=== PATIENT | male | born 1990 | race Caucasian/White ===

== ENCOUNTER 2016-08-13 06:41 | Outpatient (RCR) | payer BC ==
[~2016-08-13] VITALS: Ht 170.2 cm; Wt 59.0 kg
[2016-08-13] MEDS ORDERED: Glycopyrrolate 0.2mg/ml 1ml Vial ONE ×3 (06:42)
[2016-08-13] MEDS ORDERED: LORazepam Inj 2mg/ml 1ml ONE ×2 (06:42)
[2016-08-13] MEDS ORDERED: Flumazenil 0.1mg/ml 5ml Inj IV ONE ×3 (06:42)
[2016-08-13] MEDS ORDERED: Succinylcholine 20mg/ml 10ml vial ONE ×3 (06:42)
[2016-08-13] MEDS ORDERED: NS 550ML IV ONE ×3 (06:42)
[2016-08-13] MEDS ORDERED: Methohexital Sodium Syr 100mg/10ml IVP ONE ×3 (06:42)
[2016-08-20] MEDS ORDERED: LORazepam Inj 2mg/ml 1ml ONE (08:00)
[2016-08-20] MEDS ORDERED: Succinylcholine 20mg/ml 10ml vial ONE (08:00)
[2016-08-20] MEDS ORDERED: Glycopyrrolate 0.2mg/ml 1ml Vial ONE (08:00)
[2016-08-20] MEDS ORDERED: Flumazenil 0.1mg/ml 5ml Inj IV ONE (08:00)
[2016-08-20] MEDS ORDERED: Methohexital Sodium Syr 100mg/10ml IVP ONE (08:00)
[2016-08-20] MEDS ORDERED: Atropine Sulfate 0.4mg/ml inj IVP PRN (08:00)
[2016-08-27] MEDS ORDERED: LORazepam Inj 2mg/ml 1ml IV ONE (07:45)
[2016-08-29] MEDS ORDERED: LORazepam Inj 2mg/ml 1ml IV ONE (08:00)
[2016-09-03] MEDS ORDERED: LORazepam Inj 2mg/ml 1ml IV ONE (08:36)
[2016-09-05] MEDS ORDERED: LORazepam Inj 2mg/ml 1ml IV ONE (08:36)
== END 2016-09-09 | disposition home or self-care (01) ==
LOC: ECT 06:41
DX: F84.0 Autistic disorder (principal); Z88.2 Allergy status to sulfonamides
CPT/HCPCS: 90870; J0330; J7040

== ENCOUNTER 2016-09-10 05:06 | Outpatient (RCR) | payer BC ==
[~2016-09-10] VITALS: Ht 170.2 cm; Wt 59.0 kg
[2016-09-10] MEDS ORDERED: Glycopyrrolate 0.2mg/ml 1ml Vial ONE (05:07)
[2016-09-10] MEDS ORDERED: Methohexital Sodium Syr 100mg/10ml IVP ONE (05:07)
[2016-09-10] MEDS ORDERED: Succinylcholine 20mg/ml 10ml vial ONE (05:07)
[2016-09-10] MEDS ORDERED: Flumazenil 0.1mg/ml 5ml Inj IV ONE (05:07)
[2016-09-10] MEDS ORDERED: NS 550ML IV ONE (05:07)
[2016-09-10] MEDS ORDERED: LORazepam Inj 2mg/ml 1ml ONE (05:07)
[2016-09-10] MEDS ORDERED: Atropine Sulfate 0.4mg/ml inj IVP PRN (08:07)
[2016-09-17] MEDS ORDERED: LORazepam Inj 2mg/ml 1ml IV ONE (07:26)
[2016-09-24] MEDS ORDERED: Glycopyrrolate 0.2mg/ml 1ml Vial ONE (12:30)
[2016-09-24] MEDS ORDERED: Flumazenil 0.1mg/ml 5ml Inj IV ONE (12:30)
[2016-09-24] MEDS ORDERED: Succinylcholine 20mg/ml 10ml vial ONE (12:30)
[2016-09-24] MEDS ORDERED: Methohexital Sodium Syr 100mg/10ml IVP ONE (12:30)
[2016-09-24] MEDS ORDERED: NS 550ML IV ONE (12:30)
[2016-09-24] MEDS ORDERED: Atropine Sulfate 0.4mg/ml inj IVP PRN (17:45)
[2016-09-24] MEDS ORDERED: LORazepam Inj 2mg/ml 1ml IV ONE (17:45)
[2016-10-01] MEDS ORDERED: Flumazenil 0.1mg/ml 5ml Inj IV ONE (05:07)
[2016-10-01] MEDS ORDERED: LORazepam Inj 2mg/ml 1ml ONE (05:07)
[2016-10-01] MEDS ORDERED: Glycopyrrolate 0.2mg/ml 1ml Vial ONE (05:07)
[2016-10-01] MEDS ORDERED: Succinylcholine 20mg/ml 10ml vial ONE (05:07)
[2016-10-01] MEDS ORDERED: Methohexital Sodium Syr 100mg/10ml IVP ONE (05:07)
[2016-10-01] MEDS ORDERED: NS 550ML IV ONE (05:07)
[2016-10-01] MEDS ORDERED: LORazepam Inj 2mg/ml 1ml IV ONE (16:30)
== END 2016-10-07 | disposition home or self-care (01) ==
LOC: ECT 05:06
DX: F06.1 Catatonic disorder due to known physiological condition (principal); F84.0 Autistic disorder; Z88.2 Allergy status to sulfonamides
CPT/HCPCS: 90870; J0330; J7040

== ENCOUNTER 2016-10-08 07:36 | Outpatient (RCR) | payer BC ==
[~2016-10-08] VITALS: Ht 170.2 cm; Wt 59.0 kg
[2016-10-08] MEDS ORDERED: Flumazenil 0.1mg/ml 5ml Inj IV ONE (07:37)
[2016-10-08] MEDS ORDERED: NS 550ML IV ONE (07:37)
[2016-10-08] MEDS ORDERED: Succinylcholine 20mg/ml 10ml vial ONE (07:37)
[2016-10-08] MEDS ORDERED: LORazepam Inj 2mg/ml 1ml ONE (07:37)
[2016-10-08] MEDS ORDERED: Methohexital Sodium Syr 100mg/10ml IVP ONE (07:37)
[2016-10-08] MEDS ORDERED: Glycopyrrolate 0.2mg/ml 1ml Vial ONE (07:37)
[2016-10-08] MEDS ORDERED: LORazepam Inj 2mg/ml 1ml IV ONE (08:05)
[2016-10-15] MEDS ORDERED: Methohexital Sodium Syr 100mg/10ml IVP ONE (07:37)
[2016-10-15] MEDS ORDERED: Flumazenil 0.1mg/ml 5ml Inj IV ONE (07:37)
[2016-10-15] MEDS ORDERED: NS 550ML IV ONE (07:37)
[2016-10-15] MEDS ORDERED: LORazepam Inj 2mg/ml 1ml ONE (07:37)
[2016-10-15] MEDS ORDERED: Succinylcholine 20mg/ml 10ml vial ONE (07:37)
[2016-10-15] MEDS ORDERED: Glycopyrrolate 0.2mg/ml 1ml Vial ONE (07:37)
[2016-10-15] MEDS ORDERED: LORazepam Inj 2mg/ml 1ml IV ONE (12:30)
[2016-10-15] MEDS ORDERED: Atropine Sulfate 0.4mg/ml inj IVP PRN (17:45)
[2016-10-22] MEDS ORDERED: Methohexital Sodium Syr 100mg/10ml IVP ONE (08:00)
[2016-10-22] MEDS ORDERED: NS 550ML IV ONE (08:00)
[2016-10-22] MEDS ORDERED: LORazepam Inj 2mg/ml 1ml ONE (08:00)
[2016-10-22] MEDS ORDERED: Glycopyrrolate 0.2mg/ml 1ml Vial ONE (08:00)
[2016-10-22] MEDS ORDERED: Flumazenil 0.1mg/ml 5ml Inj IV ONE (08:00)
[2016-10-22] MEDS ORDERED: Succinylcholine 20mg/ml 10ml vial ONE (08:00)
[2016-10-29] MEDS ORDERED: NS 550ML IV ONE (08:00)
[2016-10-29] MEDS ORDERED: Methohexital Sodium Syr 100mg/10ml IVP ONE (08:00)
[2016-10-29] MEDS ORDERED: Flumazenil 0.1mg/ml 5ml Inj IV ONE (08:00)
[2016-10-29] MEDS ORDERED: Succinylcholine 20mg/ml 10ml vial ONE (08:00)
[2016-10-29] MEDS ORDERED: LORazepam Inj 2mg/ml 1ml ONE (08:00)
[2016-10-29] MEDS ORDERED: Glycopyrrolate 0.2mg/ml 1ml Vial ONE (08:00)
[2016-10-29] MEDS ORDERED: Atropine Sulfate 0.4mg/ml inj IVP PRN (08:13)
[2016-10-29] MEDS ORDERED: LORazepam Inj 2mg/ml 1ml IV ONE (16:00)
[2016-11-05] MEDS ORDERED: LORazepam Inj 2mg/ml 1ml ONE (07:00)
[2016-11-05] MEDS ORDERED: Methohexital Sodium Syr 100mg/10ml IVP ONE (07:00)
[2016-11-05] MEDS ORDERED: Glycopyrrolate 0.2mg/ml 1ml Vial ONE (07:00)
[2016-11-05] MEDS ORDERED: NS 550ML IV ONE (07:00)
[2016-11-05] MEDS ORDERED: Succinylcholine 20mg/ml 10ml vial ONE (07:00)
[2016-11-05] MEDS ORDERED: Flumazenil 0.1mg/ml 5ml Inj IV ONE (07:00)
[2016-11-05] MEDS ORDERED: LORazepam Inj 2mg/ml 1ml IV ONE (07:48)
== END 2016-11-07 | disposition home or self-care (01) ==
LOC: ECT 07:36
DX: F06.1 Catatonic disorder due to known physiological condition (principal); F84.0 Autistic disorder; Z88.2 Allergy status to sulfonamides; Z88.6 Allergy status to analgesic agent
CPT/HCPCS: 90870; J0330; J7040

== ENCOUNTER 2016-11-10 05:27 | Outpatient (RCR) | payer BC ==
[~2016-11-10] VITALS: Ht 170.2 cm; Wt 59.0 kg
[2016-11-10] MEDS ORDERED: Methohexital Sodium Syr 100mg/10ml IVP ONE (05:28)
[2016-11-10] MEDS ORDERED: Flumazenil 0.1mg/ml 5ml Inj IV ONE (05:28)
[2016-11-10] MEDS ORDERED: NS 550ML IV ONE (05:28)
[2016-11-10] MEDS ORDERED: Succinylcholine 20mg/ml 10ml vial ONE (05:28)
[2016-11-10] MEDS ORDERED: LORazepam Inj 2mg/ml 1ml ONE (05:28)
[2016-11-10] MEDS ORDERED: Glycopyrrolate 0.2mg/ml 1ml Vial ONE (05:28)
[2016-11-10] MEDS ORDERED: LORazepam Inj 2mg/ml 1ml IV ONE (12:30)
[2016-11-12] MEDS ORDERED: Glycopyrrolate 0.2mg/ml 1ml Vial ONE (12:30)
[2016-11-12] MEDS ORDERED: Methohexital Sodium Syr 100mg/10ml IVP ONE (12:30)
[2016-11-12] MEDS ORDERED: NS 550ML IV ONE (12:30)
[2016-11-12] MEDS ORDERED: LORazepam Inj 2mg/ml 1ml IV ONE (12:30)
[2016-11-12] MEDS ORDERED: LORazepam Inj 2mg/ml 1ml ONE (12:30)
[2016-11-12] MEDS ORDERED: Succinylcholine 20mg/ml 10ml vial ONE (12:30)
[2016-11-12] MEDS ORDERED: Flumazenil 0.1mg/ml 5ml Inj IV ONE (12:30)
[2016-11-19] MEDS ORDERED: NS 550ML IV ONE (17:28)
[2016-11-19] MEDS ORDERED: Flumazenil 0.1mg/ml 5ml Inj IV ONE (17:28)
[2016-11-19] MEDS ORDERED: Succinylcholine 20mg/ml 10ml vial ONE (17:28)
[2016-11-19] MEDS ORDERED: Methohexital Sodium Syr 100mg/10ml IVP ONE (17:28)
[2016-11-19] MEDS ORDERED: LORazepam Inj 2mg/ml 1ml ONE (17:28)
[2016-11-19] MEDS ORDERED: Glycopyrrolate 0.2mg/ml 1ml Vial ONE (17:28)
[2016-11-19] MEDS ORDERED: LORazepam Inj 2mg/ml 1ml IV ONE (17:45)
[2016-11-19] MEDS ORDERED: Atropine Sulfate 0.4mg/ml inj IVP PRN (17:45)
[2016-11-26] MEDS ORDERED: Flumazenil 0.1mg/ml 5ml Inj IV ONE (05:28)
[2016-11-26] MEDS ORDERED: Methohexital Sodium Syr 100mg/10ml IVP ONE (05:28)
[2016-11-26] MEDS ORDERED: NS 550ML IV ONE (05:28)
[2016-11-26] MEDS ORDERED: LORazepam Inj 2mg/ml 1ml ONE (05:28)
[2016-11-26] MEDS ORDERED: Succinylcholine 20mg/ml 10ml vial ONE (05:28)
[2016-11-26] MEDS ORDERED: Glycopyrrolate 0.2mg/ml 1ml Vial ONE (05:28)
[2016-11-26] MEDS ORDERED: LORazepam Inj 2mg/ml 1ml IV ONE (08:20)
[2016-12-03] MEDS ORDERED: LORazepam Inj 2mg/ml 1ml IV ONE (07:48)
[2016-12-03] MEDS ORDERED: Atropine Sulfate 0.4mg/ml inj IVP PRN (07:48)
[2016-12-03] MEDS ORDERED: Methohexital Sodium Syr 100mg/10ml IVP ONE (08:00)
[2016-12-03] MEDS ORDERED: Flumazenil 0.1mg/ml 5ml Inj IV ONE (08:00)
[2016-12-03] MEDS ORDERED: Succinylcholine 20mg/ml 10ml vial ONE (08:00)
[2016-12-03] MEDS ORDERED: Glycopyrrolate 0.2mg/ml 1ml Vial ONE (08:00)
[2016-12-03] MEDS ORDERED: LORazepam Inj 2mg/ml 1ml ONE (08:00)
== END 2016-12-07 | disposition home or self-care (01) ==
LOC: ECT 05:27
DX: F06.1 Catatonic disorder due to known physiological condition (principal); F84.0 Autistic disorder
CPT/HCPCS: 90870; J0330; J7040

== ENCOUNTER 2016-12-10 05:08 | Outpatient (RCR) | payer BC ==
[~2016-12-10] VITALS: Ht 170.2 cm; Wt 59.0 kg
[2016-12-10] MEDS ORDERED: NS 550ML IV ONE (05:09)
[2016-12-10] MEDS ORDERED: LORazepam Inj 2mg/ml 1ml ONE ×2 (05:09→07:00)
[2016-12-10] MEDS ORDERED: Succinylcholine 20mg/ml 10ml vial ONE ×2 (05:09→07:00)
[2016-12-10] MEDS ORDERED: Methohexital Sodium Syr 100mg/10ml IVP ONE ×2 (05:09→07:00)
[2016-12-10] MEDS ORDERED: Glycopyrrolate 0.2mg/ml 1ml Vial ONE ×2 (05:09→07:00)
[2016-12-10] MEDS ORDERED: Flumazenil 0.1mg/ml 5ml Inj IV ONE ×2 (05:09→07:00)
[2016-12-10] MEDS ORDERED: LORazepam Inj 2mg/ml 1ml IV ONE (08:19)
[2016-12-17] MEDS ORDERED: LORazepam Inj 2mg/ml 1ml ONE (06:00)
[2016-12-17] MEDS ORDERED: Succinylcholine 20mg/ml 10ml vial ONE (06:00)
[2016-12-17] MEDS ORDERED: Glycopyrrolate 0.2mg/ml 1ml Vial ONE (06:00)
[2016-12-17] MEDS ORDERED: Methohexital Sodium Syr 100mg/10ml IVP ONE (06:00)
[2016-12-17] MEDS ORDERED: Flumazenil 0.1mg/ml 5ml Inj IV ONE (06:00)
[2016-12-17] MEDS ORDERED: LORazepam Inj 2mg/ml 1ml IV ONE (08:38)
[2016-12-17] MEDS ORDERED: Atropine Sulfate 0.4mg/ml inj IVP PRN (08:38)
[2016-12-24] MEDS ORDERED: Methohexital Sodium Syr 100mg/10ml IVP ONE (07:00)
[2016-12-24] MEDS ORDERED: Glycopyrrolate 0.2mg/ml 1ml Vial ONE (07:00)
[2016-12-24] MEDS ORDERED: Succinylcholine 20mg/ml 10ml vial ONE (07:00)
[2016-12-24] MEDS ORDERED: Flumazenil 0.1mg/ml 5ml Inj IV ONE (07:00)
[2016-12-24] MEDS ORDERED: LORazepam Inj 2mg/ml 1ml ONE (07:00)
[2016-12-24] MEDS ORDERED: LORazepam Inj 2mg/ml 1ml IV ONE (07:49)
[2016-12-31] MEDS ORDERED: Succinylcholine 20mg/ml 10ml vial ONE (07:00)
[2016-12-31] MEDS ORDERED: Glycopyrrolate 0.2mg/ml 1ml Vial ONE (07:00)
[2016-12-31] MEDS ORDERED: Flumazenil 0.1mg/ml 5ml Inj IV ONE (07:00)
[2016-12-31] MEDS ORDERED: LORazepam Inj 2mg/ml 1ml ONE (07:00)
[2016-12-31] MEDS ORDERED: Methohexital Sodium Syr 100mg/10ml IVP ONE (07:00)
[2016-12-31] MEDS ORDERED: LORazepam Inj 2mg/ml 1ml IV ONE (08:08)
== END 2017-01-07 | disposition home or self-care (01) ==
LOC: ECT 05:08
DX: F06.1 Catatonic disorder due to known physiological condition (principal); F84.0 Autistic disorder
CPT/HCPCS: 90870; J0330; J7040

== ENCOUNTER 2017-01-14 08:36 | Outpatient (RCR) | payer BC ==
[~2017-01-14] VITALS: Ht 170.2 cm; Wt 59.0 kg
[2017-01-14] MEDS ORDERED: Flumazenil 0.1mg/ml 5ml Inj IV ONE (08:37)
[2017-01-14] MEDS ORDERED: Glycopyrrolate 0.2mg/ml 1ml Vial ONE (08:37)
[2017-01-14] MEDS ORDERED: Succinylcholine 20mg/ml 10ml vial ONE (08:37)
[2017-01-14] MEDS ORDERED: NS 550ML IV ONE (08:37)
[2017-01-14] MEDS ORDERED: Methohexital Sodium Syr 100mg/10ml IVP ONE (08:37)
[2017-01-14] MEDS ORDERED: LORazepam Inj 2mg/ml 1ml IV ONE (08:40)
[2017-01-14] MEDS ORDERED: Atropine Sulfate 0.4mg/ml inj IVP PRN (08:48)
[2017-01-21] MEDS ORDERED: Glycopyrrolate 0.2mg/ml 1ml Vial ONE (07:00)
[2017-01-21] MEDS ORDERED: Flumazenil 0.1mg/ml 5ml Inj IV ONE (07:00)
[2017-01-21] MEDS ORDERED: Succinylcholine 20mg/ml 10ml vial ONE (07:00)
[2017-01-21] MEDS ORDERED: LORazepam Inj 2mg/ml 1ml ONE (07:00)
[2017-01-21] MEDS ORDERED: Methohexital Sodium Syr 100mg/10ml IVP ONE (07:00)
[2017-01-21] MEDS ORDERED: NS 550ML IV ONE (07:00)
[2017-01-21] MEDS ORDERED: LORazepam Inj 2mg/ml 1ml IV ONE (22:30)
[2017-01-28] MEDS ORDERED: NS 550ML IV ONE (08:00)
[2017-01-28] MEDS ORDERED: Succinylcholine 20mg/ml 10ml vial ONE (08:00)
[2017-01-28] MEDS ORDERED: LORazepam Inj 2mg/ml 1ml ONE (08:00)
[2017-01-28] MEDS ORDERED: Flumazenil 0.1mg/ml 5ml Inj IV ONE (08:00)
[2017-01-28] MEDS ORDERED: Methohexital Sodium Syr 100mg/10ml IVP ONE (08:00)
[2017-01-28] MEDS ORDERED: Glycopyrrolate 0.2mg/ml 1ml Vial ONE (08:00)
[2017-02-04] MEDS ORDERED: NS 550ML IV ONE (12:30)
[2017-02-04] MEDS ORDERED: LORazepam Inj 2mg/ml 1ml ONE (12:30)
[2017-02-04] MEDS ORDERED: Glycopyrrolate 0.2mg/ml 1ml Vial ONE (12:30)
[2017-02-04] MEDS ORDERED: Succinylcholine 20mg/ml 10ml vial ONE (12:30)
[2017-02-04] MEDS ORDERED: Flumazenil 0.1mg/ml 5ml Inj IV ONE (12:30)
[2017-02-04] MEDS ORDERED: Methohexital Sodium Syr 100mg/10ml IVP ONE (12:30)
== END 2017-02-06 | disposition home or self-care (01) ==
LOC: ECT 08:36
DX: F06.1 Catatonic disorder due to known physiological condition (principal); F84.0 Autistic disorder
CPT/HCPCS: 90870; J0330; J7040

== ENCOUNTER 2017-02-11 06:17 | Outpatient (RCR) | payer BC ==
[~2017-02-11] VITALS: Ht 170.2 cm; Wt 59.0 kg
[2017-02-11] MEDS ORDERED: Glycopyrrolate 0.2mg/ml 1ml Vial ONE ×2 (06:18)
[2017-02-11] MEDS ORDERED: Methohexital Sodium Syr 100mg/10ml IVP ONE ×2 (06:18)
[2017-02-11] MEDS ORDERED: Succinylcholine 20mg/ml 10ml vial ONE ×2 (06:18)
[2017-02-11] MEDS ORDERED: NS 550ML IV ONE ×2 (06:18)
[2017-02-11] MEDS ORDERED: Flumazenil 0.1mg/ml 5ml Inj IV ONE ×2 (06:18)
[2017-02-11] MEDS ORDERED: LORazepam Inj 2mg/ml 1ml ONE ×2 (06:18)
[2017-02-11] MEDS ORDERED: LORazepam Inj 2mg/ml 1ml IV ONE (08:17)
[2017-02-18] MEDS ORDERED: Methohexital Sodium Syr 100mg/10ml IVP ONE (07:00)
[2017-02-18] MEDS ORDERED: Glycopyrrolate 0.2mg/ml 1ml Vial ONE (07:00)
[2017-02-18] MEDS ORDERED: Flumazenil 0.1mg/ml 5ml Inj IV ONE (07:00)
[2017-02-18] MEDS ORDERED: LORazepam Inj 2mg/ml 1ml ONE (07:00)
[2017-02-18] MEDS ORDERED: Succinylcholine 20mg/ml 10ml vial ONE (07:00)
[2017-02-25] MEDS ORDERED: Succinylcholine 20mg/ml 10ml vial ONE (07:00)
[2017-02-25] MEDS ORDERED: Glycopyrrolate 0.2mg/ml 1ml Vial ONE (07:00)
[2017-02-25] MEDS ORDERED: LORazepam Inj 2mg/ml 1ml ONE (07:00)
[2017-02-25] MEDS ORDERED: Flumazenil 0.1mg/ml 5ml Inj IV ONE (07:00)
[2017-02-25] MEDS ORDERED: Methohexital Sodium Syr 100mg/10ml IVP ONE (07:00)
[2017-02-25] MEDS ORDERED: LORazepam Inj 2mg/ml 1ml IV ONE (07:32)
== END 2017-03-09 | disposition home or self-care (01) ==
LOC: ECT 06:17
DX: F06.1 Catatonic disorder due to known physiological condition (principal); F84.0 Autistic disorder
CPT/HCPCS: 90870; J0330; J7040

== ENCOUNTER 2017-03-11 05:08 | Outpatient (RCR) | payer BC ==
[~2017-03-11] VITALS: Ht 170.2 cm; Wt 59.0 kg
[2017-03-11] MEDS ORDERED: Methohexital Sodium Syr 100mg/10ml IVP ONE (05:09)
[2017-03-11] MEDS ORDERED: Flumazenil 0.1mg/ml 5ml Inj IV ONE (05:09)
[2017-03-11] MEDS ORDERED: Glycopyrrolate 0.2mg/ml 1ml Vial ONE (05:09)
[2017-03-11] MEDS ORDERED: NS 550ML IV ONE (05:09)
[2017-03-11] MEDS ORDERED: LORazepam Inj 2mg/ml 1ml ONE (05:09)
[2017-03-11] MEDS ORDERED: Succinylcholine 20mg/ml 10ml vial ONE (05:09)
[2017-03-11] MEDS ORDERED: LORazepam Inj 2mg/ml 1ml IV ONE (08:09)
[2017-03-18] MEDS ORDERED: NS 550ML IV ONE (07:00)
[2017-03-18] MEDS ORDERED: LORazepam Inj 2mg/ml 1ml ONE (07:00)
[2017-03-18] MEDS ORDERED: Methohexital Sodium Syr 100mg/10ml IVP ONE (07:00)
[2017-03-18] MEDS ORDERED: Flumazenil 0.1mg/ml 5ml Inj IV ONE (07:00)
[2017-03-18] MEDS ORDERED: Succinylcholine 20mg/ml 10ml vial ONE (07:00)
[2017-03-18] MEDS ORDERED: Glycopyrrolate 0.2mg/ml 1ml Vial ONE (07:00)
[2017-03-18] MEDS ORDERED: LORazepam Inj 2mg/ml 1ml IV ONE (08:05)
[2017-03-25] MEDS ORDERED: Flumazenil 0.1mg/ml 5ml Inj IV ONE (07:00)
[2017-03-25] MEDS ORDERED: Succinylcholine 20mg/ml 10ml vial ONE (07:00)
[2017-03-25] MEDS ORDERED: Methohexital Sodium Syr 100mg/10ml IVP ONE (07:00)
[2017-03-25] MEDS ORDERED: Glycopyrrolate 0.2mg/ml 1ml Vial ONE (07:00)
[2017-03-25] MEDS ORDERED: LORazepam Inj 2mg/ml 1ml ONE (07:00)
[2017-03-25] MEDS ORDERED: LORazepam Inj 2mg/ml 1ml IV ONE (07:46)
[2017-04-01] MEDS ORDERED: LORazepam Inj 2mg/ml 1ml ONE (07:00)
[2017-04-01] MEDS ORDERED: Succinylcholine 20mg/ml 10ml vial ONE (07:00)
[2017-04-01] MEDS ORDERED: Glycopyrrolate 0.2mg/ml 1ml Vial ONE (07:00)
[2017-04-01] MEDS ORDERED: NS 550ML IV ONE (07:00)
[2017-04-01] MEDS ORDERED: Flumazenil 0.1mg/ml 5ml Inj IV ONE (07:00)
[2017-04-01] MEDS ORDERED: Methohexital Sodium Syr 100mg/10ml IVP ONE (07:00)
[2017-04-01] MEDS ORDERED: LORazepam Inj 2mg/ml 1ml IV ONE (07:56)
[2017-04-08] MEDS ORDERED: LORazepam Inj 2mg/ml 1ml ONE (07:00)
[2017-04-08] MEDS ORDERED: Methohexital Sodium Syr 100mg/10ml IVP ONE (07:00)
[2017-04-08] MEDS ORDERED: Flumazenil 0.1mg/ml 5ml Inj IV ONE (07:00)
[2017-04-08] MEDS ORDERED: Succinylcholine 20mg/ml 10ml vial ONE (07:00)
[2017-04-08] MEDS ORDERED: Glycopyrrolate 0.2mg/ml 1ml Vial ONE (07:00)
[2017-04-08] MEDS ORDERED: Atropine Sulfate 0.4mg/ml inj IVP PRN (08:03)
== END 2017-04-09 | disposition home or self-care (01) ==
LOC: ECT 05:08
DX: F06.1 Catatonic disorder due to known physiological condition (principal); F84.0 Autistic disorder
CPT/HCPCS: 90870; J0330; J7040

== ENCOUNTER 2017-04-15 06:12 | Outpatient (RCR) | payer BC ==
[~2017-04-15] VITALS: Ht 170.2 cm; Wt 59.0 kg
[2017-04-15] MEDS ORDERED: Glycopyrrolate 0.2mg/ml 1ml Vial ONE (06:13)
[2017-04-15] MEDS ORDERED: NS 500ML IV ONE (06:13)
[2017-04-15] MEDS ORDERED: Succinylcholine 20mg/ml 10ml vial ONE (06:13)
[2017-04-15] MEDS ORDERED: Flumazenil 0.1mg/ml 5ml Inj IV ONE (06:13)
[2017-04-15] MEDS ORDERED: Methohexital Sodium Syr 100mg/10ml IVP ONE (06:13)
[2017-04-15] MEDS ORDERED: LORazepam Inj 2mg/ml 1ml ONE (06:13)
[2017-04-15] MEDS ORDERED: Sodium Chloride 500ML 500 ML IV ONE (17:00)
[2017-04-22] MEDS ORDERED: Sodium Chloride 500ML 500 ML IV ONE (08:02)
[2017-04-22] MEDS ORDERED: LORazepam Inj 2mg/ml 1ml IV ONE (08:02)
[2017-04-23] MEDS ORDERED: LORazepam Inj 2mg/ml 1ml ONE (07:00)
[2017-04-23] MEDS ORDERED: Succinylcholine 20mg/ml 10ml vial ONE (07:00)
[2017-04-23] MEDS ORDERED: Glycopyrrolate 0.2mg/ml 1ml Vial ONE (07:00)
[2017-04-23] MEDS ORDERED: Methohexital Sodium Syr 100mg/10ml IVP ONE (07:00)
[2017-04-23] MEDS ORDERED: Flumazenil 0.1mg/ml 5ml Inj IV ONE (07:00)
[2017-04-29] MEDS ORDERED: Flumazenil 0.1mg/ml 5ml Inj IV ONE (07:00)
[2017-04-29] MEDS ORDERED: Succinylcholine 20mg/ml 10ml vial ONE (07:00)
[2017-04-29] MEDS ORDERED: LORazepam Inj 2mg/ml 1ml ONE (07:00)
[2017-04-29] MEDS ORDERED: Methohexital Sodium Syr 100mg/10ml IVP ONE (07:00)
[2017-04-29] MEDS ORDERED: Glycopyrrolate 0.2mg/ml 1ml Vial ONE (07:00)
[2017-04-29] MEDS ORDERED: LORazepam Inj 2mg/ml 1ml IV ONE (07:34)
[2017-04-29] MEDS ORDERED: Sodium Chloride 500ML 500 ML IV ONE (07:34)
[2017-05-06] MEDS ORDERED: Succinylcholine 20mg/ml 10ml vial ONE (07:00)
[2017-05-06] MEDS ORDERED: LORazepam Inj 2mg/ml 1ml ONE (07:00)
[2017-05-06] MEDS ORDERED: Glycopyrrolate 0.2mg/ml 1ml Vial ONE (07:00)
[2017-05-06] MEDS ORDERED: Methohexital Sodium Syr 100mg/10ml IVP ONE (07:00)
[2017-05-06] MEDS ORDERED: Flumazenil 0.1mg/ml 5ml Inj IV ONE (07:00)
[2017-05-06] MEDS ORDERED: Sodium Chloride 500ML 500 ML IV ONE (08:02)
== END 2017-05-09 | disposition home or self-care (01) ==
LOC: ECT 06:12
DX: F06.1 Catatonic disorder due to known physiological condition (principal); F84.0 Autistic disorder
CPT/HCPCS: 90870; J0330; J7040

== ENCOUNTER 2017-05-13 05:06 | Outpatient (RCR) | payer BC ==
[~2017-05-13] VITALS: Ht 170.2 cm; Wt 59.0 kg
[2017-05-13] MEDS ORDERED: Glycopyrrolate 0.2mg/ml 1ml Vial ONE (05:07)
[2017-05-13] MEDS ORDERED: LORazepam Inj 2mg/ml 1ml ONE (05:07)
[2017-05-13] MEDS ORDERED: Succinylcholine 20mg/ml 10ml vial ONE (05:07)
[2017-05-13] MEDS ORDERED: Methohexital Sodium Syr 100mg/10ml IVP ONE (05:07)
[2017-05-13] MEDS ORDERED: Flumazenil 0.1mg/ml 5ml Inj IV ONE (05:07)
[2017-05-13] MEDS ORDERED: Atropine Sulfate 0.4mg/ml inj IVP PRN (07:53)
[2017-05-13] MEDS ORDERED: LORazepam Inj 2mg/ml 1ml IV ONE (07:53)
[2017-05-13] MEDS ORDERED: Sodium Chloride 500ML 500 ML IV ONE (07:53)
[2017-05-20] MEDS ORDERED: Glycopyrrolate 0.2mg/ml 1ml Vial ONE (08:00)
[2017-05-20] MEDS ORDERED: Succinylcholine 20mg/ml 10ml vial ONE (08:00)
[2017-05-20] MEDS ORDERED: Flumazenil 0.1mg/ml 5ml Inj IV ONE (08:00)
[2017-05-20] MEDS ORDERED: LORazepam Inj 2mg/ml 1ml ONE (08:00)
[2017-05-20] MEDS ORDERED: Methohexital Sodium Syr 100mg/10ml IVP ONE (08:00)
[2017-05-20] MEDS ORDERED: Sodium Chloride 500ML 500 ML IV ONE (08:08)
[2017-05-27 07:42] VITALS: BP 156/97
[2017-05-27] MEDS ORDERED: Sodium Chloride 500ML 500 ML IV ONE (07:53)
[2017-05-27 08:00] VITALS: BP 140/77
[2017-05-27] MEDS ORDERED: Glycopyrrolate 0.2mg/ml 1ml Vial ONE (08:00)
[2017-05-27] MEDS ORDERED: Flumazenil 0.1mg/ml 5ml Inj IV ONE (08:00)
[2017-05-27] MEDS ORDERED: Succinylcholine 20mg/ml 10ml vial ONE (08:00)
[2017-05-27] MEDS ORDERED: LORazepam Inj 2mg/ml 1ml ONE (08:00)
[2017-05-27] MEDS ORDERED: Methohexital Sodium Syr 100mg/10ml IVP ONE (08:00)
[2017-05-27 08:05] VITALS: BP 130/72
[2017-05-27 08:10] VITALS: BP 139/74
[2017-05-27 08:15] VITALS: BP 137/84
[2017-06-03] MEDS ORDERED: Succinylcholine 20mg/ml 10ml vial ONE (07:00)
[2017-06-03] MEDS ORDERED: Methohexital Sodium Syr 100mg/10ml IVP ONE (07:00)
[2017-06-03] MEDS ORDERED: LORazepam Inj 2mg/ml 1ml ONE (07:00)
[2017-06-03] MEDS ORDERED: Flumazenil 0.1mg/ml 5ml Inj IV ONE (07:00)
[2017-06-03] MEDS ORDERED: Glycopyrrolate 0.2mg/ml 1ml Vial ONE (07:00)
[2017-06-03 08:18] VITALS: BP 155/55
[2017-06-03] MEDS ORDERED: Sodium Chloride 500ML 500 ML IV ONE (08:33)
[2017-06-03 08:35] VITALS: BP 149/75
[2017-06-03 08:40] VITALS: BP 146/76
[2017-06-03 08:45] VITALS: BP 145/75
[2017-06-03 08:50] VITALS: BP 155/55
[2017-06-03] MEDS ORDERED: LORazepam Inj 2mg/ml 1ml IV ONE (14:15)
== END 2017-06-09 | disposition home or self-care (01) ==
LOC: ECT 05:06
DX: F06.1 Catatonic disorder due to known physiological condition (principal); F84.0 Autistic disorder
CPT/HCPCS: 90870; J0330

== ENCOUNTER 2017-06-10 05:12 | Outpatient (RCR) | payer BC ==
[~2017-06-10] VITALS: Ht 170.2 cm; Wt 59.0 kg
[2017-06-10] MEDS ORDERED: LORazepam Inj 2mg/ml 1ml ONE (05:13)
[2017-06-10] MEDS ORDERED: Glycopyrrolate 0.2mg/ml 1ml Vial ONE (05:13)
[2017-06-10] MEDS ORDERED: Succinylcholine 20mg/ml 10ml vial ONE (05:13)
[2017-06-10] MEDS ORDERED: Flumazenil 0.1mg/ml 5ml Inj IV ONE (05:13)
[2017-06-10 07:34] VITALS: BP 186/98
[2017-06-10 07:39] VITALS: BP 157/84
[2017-06-10] MEDS ORDERED: LORazepam Inj 2mg/ml 1ml IV ONE (07:51)
[2017-06-10] MEDS ORDERED: Sodium Chloride 500ML 500 ML IV ONE (07:51)
[2017-06-10 07:55] VITALS: BP 148/76
[2017-06-10 08:00] VITALS: BP 111/71
[2017-06-10 08:05] VITALS: BP 142/78
[2017-06-10 08:10] VITALS: BP 151/72
[2017-06-17] MEDS ORDERED: Flumazenil 0.1mg/ml 5ml Inj IV ONE (07:00)
[2017-06-17] MEDS ORDERED: Glycopyrrolate 0.2mg/ml 1ml Vial ONE (07:00)
[2017-06-17] MEDS ORDERED: LORazepam Inj 2mg/ml 1ml ONE (07:00)
[2017-06-17] MEDS ORDERED: Methohexital Sodium Syr 100mg/10ml IVP ONE (07:00)
[2017-06-17] MEDS ORDERED: Succinylcholine 20mg/ml 10ml vial ONE (07:00)
[2017-06-17 07:22] VITALS: BP 185/81
[2017-06-17] MEDS ORDERED: Sodium Chloride 500ML 500 ML IV ONE (08:07)
[2017-06-17 08:10] VITALS: BP 149/86
[2017-06-17 08:15] VITALS: BP 142/80
[2017-06-17 08:20] VITALS: BP 150/68
[2017-06-17 08:25] VITALS: BP 148/65
[2017-06-24 07:50] VITALS: BP 175/109
[2017-06-24] MEDS ORDERED: LORazepam Inj 2mg/ml 1ml ONE (08:00)
[2017-06-24] MEDS ORDERED: Methohexital Sodium Syr 100mg/10ml IVP ONE (08:00)
[2017-06-24] MEDS ORDERED: Flumazenil 0.1mg/ml 5ml Inj IV ONE (08:00)
[2017-06-24] MEDS ORDERED: Succinylcholine 20mg/ml 10ml vial ONE (08:00)
[2017-06-24] MEDS ORDERED: Glycopyrrolate 0.2mg/ml 1ml Vial ONE (08:00)
[2017-06-24] MEDS ORDERED: LORazepam Inj 2mg/ml 1ml IV ONE (08:05)
[2017-06-24 08:10] VITALS: BP 152/85
[2017-06-24] MEDS ORDERED: Sodium Chloride 500ML 500 ML IV ONE (08:10)
[2017-06-24 08:15] VITALS: BP 153/83
[2017-06-24 08:20] VITALS: BP 141/101
[2017-06-24 08:25] VITALS: BP 141/71
[2017-07-01 07:55] VITALS: BP 167/101
[2017-07-01] MEDS ORDERED: Methohexital Sodium Syr 100mg/10ml IVP ONE (08:00)
[2017-07-01] MEDS ORDERED: Flumazenil 0.1mg/ml 5ml Inj IV ONE (08:00)
[2017-07-01] MEDS ORDERED: LORazepam Inj 2mg/ml 1ml ONE (08:00)
[2017-07-01] MEDS ORDERED: Succinylcholine 20mg/ml 10ml vial ONE (08:00)
[2017-07-01] MEDS ORDERED: Glycopyrrolate 0.2mg/ml 1ml Vial ONE (08:00)
[2017-07-01] MEDS ORDERED: LORazepam Inj 2mg/ml 1ml IV ONE (08:13)
[2017-07-01] MEDS ORDERED: Sodium Chloride 500ML 500 ML IV ONE (08:13)
[2017-07-01 08:15] VITALS: BP 159/84
[2017-07-01 08:20] VITALS: BP 158/87
[2017-07-01 08:25] VITALS: BP 147/90
[2017-07-01 08:30] VITALS: BP 146/81
[2017-07-08 07:38] VITALS: BP 163/93
[2017-07-08] MEDS ORDERED: Sodium Chloride 500ML 500 ML IV ONE (07:58)
[2017-07-08 08:00] VITALS: BP 151/83
[2017-07-08] MEDS ORDERED: Succinylcholine 20mg/ml 10ml vial ONE (08:00)
[2017-07-08] MEDS ORDERED: Flumazenil 0.1mg/ml 5ml Inj IV ONE (08:00)
[2017-07-08] MEDS ORDERED: LORazepam Inj 2mg/ml 1ml ONE (08:00)
[2017-07-08] MEDS ORDERED: Glycopyrrolate 0.2mg/ml 1ml Vial ONE (08:00)
[2017-07-08 08:05] VITALS: BP 141/75
[2017-07-08 08:10] VITALS: BP 143/60
[2017-07-08 08:15] VITALS: BP 144/58
[2017-07-08] MEDS ORDERED: LORazepam Inj 2mg/ml 1ml IV ONE (15:45)
== END 2017-07-09 | disposition home or self-care (01) ==
LOC: ECT 05:12
DX: F06.1 Catatonic disorder due to known physiological condition (principal); F84.0 Autistic disorder
CPT/HCPCS: 90870; J0330

== ENCOUNTER 2017-07-15 06:38 | Outpatient (RCR) | payer BC ==
[~2017-07-15] VITALS: Ht 170.2 cm; Wt 59.0 kg
[2017-07-15] MEDS ORDERED: Methohexital Sodium Syr 100mg/10ml IVP ONE ×2 (06:39)
[2017-07-15] MEDS ORDERED: Glycopyrrolate 0.2mg/ml 1ml Vial ONE ×2 (06:39)
[2017-07-15] MEDS ORDERED: LORazepam Inj 2mg/ml 1ml ONE ×3 (06:39)
[2017-07-15] MEDS ORDERED: NS 500ML ONE (06:39)
[2017-07-15] MEDS ORDERED: Methohexital Sodium 500mg Vial IVP ONE (06:39)
[2017-07-15] MEDS ORDERED: Succinylcholine 20mg/ml 10ml vial ONE ×3 (06:39)
[2017-07-15] MEDS ORDERED: Flumazenil 0.1mg/ml 5ml Inj IV ONE ×3 (06:39)
[2017-07-15 08:00] VITALS: BP 177/108
[2017-07-15] MEDS ORDERED: LORazepam Inj 2mg/ml 1ml IV ONE (08:11)
[2017-07-15] MEDS ORDERED: Sodium Chloride 500ML 500 ML IV ONE (08:11)
[2017-07-15 08:15] VITALS: BP 151/86
[2017-07-15 08:20] VITALS: BP 152/81
[2017-07-15 08:25] VITALS: BP 139/87
[2017-07-15 08:30] VITALS: BP 147/84
[2017-07-22 07:40] VITALS: BP 149/100
[2017-07-22] MEDS ORDERED: Sodium Chloride 500ML 500 ML IV ONE (08:14)
[2017-07-22 08:15] VITALS: BP 159/74
[2017-07-22 08:20] VITALS: BP 153/50
[2017-07-22 08:25] VITALS: BP 155/53
[2017-07-22 08:30] VITALS: BP 161/88
[2017-07-24 07:25] VITALS: BP 145/82
[2017-07-24] MEDS ORDERED: Sodium Chloride 500ML 500 ML IV ONE (07:42)
[2017-07-24] MEDS ORDERED: LORazepam Inj 2mg/ml 1ml IV ONE (07:42)
[2017-07-24 07:45] VITALS: BP 138/89
[2017-07-24 07:50] VITALS: BP 135/43
[2017-07-24 07:55] VITALS: BP 139/43
[2017-07-24 08:00] VITALS: BP 137/97
[2017-07-24 08:05] VITALS: BP 138/45
[2017-07-29] MEDS ORDERED: Methohexital Sodium Syr 100mg/10ml IVP ONE (06:00)
[2017-07-29] MEDS ORDERED: Glycopyrrolate 0.2mg/ml 1ml Vial ONE (06:00)
[2017-07-29] MEDS ORDERED: Flumazenil 0.1mg/ml 5ml Inj IV ONE (06:00)
[2017-07-29] MEDS ORDERED: Succinylcholine 20mg/ml 10ml vial ONE (06:00)
[2017-07-29] MEDS ORDERED: NS 500ML ONE (06:00)
[2017-07-29] MEDS ORDERED: LORazepam Inj 2mg/ml 1ml ONE (06:00)
[2017-07-29 07:35] VITALS: BP 146/91
[2017-07-29] MEDS ORDERED: Sodium Chloride 500ML 500 ML IV ONE (07:49)
[2017-07-29] MEDS ORDERED: LORazepam Inj 2mg/ml 1ml IV ONE (07:49)
[2017-07-29 07:50] VITALS: BP 150/79
[2017-07-29 07:55] VITALS: BP 149/67
[2017-07-29 08:00] VITALS: BP 141/84
[2017-07-29 08:05] VITALS: BP 154/90
[2017-08-05 07:12] VITALS: BP 181/93
[2017-08-05] MEDS ORDERED: LORazepam Inj 2mg/ml 1ml IV ONE (07:28)
[2017-08-05] MEDS ORDERED: Sodium Chloride 500ML 500 ML IV ONE (07:28)
[2017-08-05] MEDS ORDERED: Atropine Sulfate 0.4mg/ml inj IVP PRN (07:28)
[2017-08-05 07:30] VITALS: BP 148/53
[2017-08-05 07:35] VITALS: BP 174/100
[2017-08-05 07:40] VITALS: BP 178/96
[2017-08-05 07:45] VITALS: BP 170/96
[2017-08-05] MEDS ORDERED: Glycopyrrolate 0.2mg/ml 1ml Vial ONE (08:00)
[2017-08-05] MEDS ORDERED: LORazepam Inj 2mg/ml 1ml ONE (08:00)
[2017-08-05] MEDS ORDERED: Methohexital Sodium Syr 100mg/10ml IVP ONE (08:00)
[2017-08-05] MEDS ORDERED: Flumazenil 0.1mg/ml 5ml Inj IV ONE (08:00)
[2017-08-05] MEDS ORDERED: Succinylcholine 20mg/ml 10ml vial ONE (08:00)
== END 2017-08-09 | disposition home or self-care (01) ==
LOC: ECT 06:38
DX: F06.1 Catatonic disorder due to known physiological condition (principal); F84.0 Autistic disorder
CPT/HCPCS: 90870; J0330; J3490; J7040

== ENCOUNTER 2017-08-12 06:10 | Outpatient (RCR) | payer BC ==
[~2017-08-12] VITALS: Ht 170.2 cm; Wt 59.0 kg
[2017-08-12] MEDS ORDERED: Glycopyrrolate 0.2mg/ml 1ml Vial ONE (06:11)
[2017-08-12] MEDS ORDERED: Flumazenil 0.1mg/ml 5ml Inj IV ONE (06:11)
[2017-08-12] MEDS ORDERED: Methohexital Sodium Syr 100mg/10ml IVP ONE (06:11)
[2017-08-12] MEDS ORDERED: Succinylcholine 20mg/ml 10ml vial ONE (06:11)
[2017-08-12] MEDS ORDERED: LORazepam Inj 2mg/ml 1ml ONE (06:11)
[2017-08-12 07:28] VITALS: BP 154/96
[2017-08-12] MEDS ORDERED: Sodium Chloride 500ML 500 ML IV ONE (07:48)
[2017-08-12 07:50] VITALS: BP 154/84
[2017-08-12 07:55] VITALS: BP 141/84
[2017-08-12 08:00] VITALS: BP 134/79
[2017-08-12] MEDS ORDERED: LORazepam Inj 2mg/ml 1ml IV PRN (08:00)
[2017-08-12 08:05] VITALS: BP 141/85
[2017-08-19] MEDS ORDERED: LORazepam Inj 2mg/ml 1ml ONE (07:00)
[2017-08-19] MEDS ORDERED: Succinylcholine 20mg/ml 10ml vial ONE (07:00)
[2017-08-19] MEDS ORDERED: Glycopyrrolate 0.2mg/ml 1ml Vial ONE (07:00)
[2017-08-19] MEDS ORDERED: Flumazenil 0.1mg/ml 5ml Inj IV ONE (07:00)
[2017-08-19] MEDS ORDERED: Methohexital Sodium Syr 100mg/10ml IVP ONE (07:00)
[2017-08-19 07:39] VITALS: BP 181/127
[2017-08-19] MEDS ORDERED: Atropine Sulfate 0.4mg/ml inj IVP PRN (07:53)
[2017-08-19] MEDS ORDERED: Sodium Chloride 500ML 500 ML IV ONE (07:53)
[2017-08-19 07:55] VITALS: BP 153/195
[2017-08-19 08:00] VITALS: BP 158/98
[2017-08-19 08:05] VITALS: BP 153/84
[2017-08-19 08:10] VITALS: BP 127/99
[2017-08-26] MEDS ORDERED: Sodium Chloride 500ML 500 ML IV ONE ×2 (07:15→07:51)
[2017-08-26 07:28] VITALS: BP 161/99
[2017-08-26] MEDS ORDERED: LORazepam Inj 2mg/ml 1ml IV ONE ×2 (07:51)
[2017-08-26 07:55] VITALS: BP 146/73
[2017-08-26 08:00] VITALS: BP 145/75
[2017-08-26] MEDS ORDERED: LORazepam Inj 2mg/ml 1ml ONE (08:00)
[2017-08-26] MEDS ORDERED: Glycopyrrolate 0.2mg/ml 1ml Vial ONE (08:00)
[2017-08-26] MEDS ORDERED: Flumazenil 0.1mg/ml 5ml Inj IV ONE (08:00)
[2017-08-26] MEDS ORDERED: Methohexital Sodium Syr 100mg/10ml IVP ONE (08:00)
[2017-08-26] MEDS ORDERED: Succinylcholine 20mg/ml 10ml vial ONE (08:00)
[2017-08-26 08:05] VITALS: BP 146/74
[2017-08-26 08:10] VITALS: BP 144/76
[2017-09-02] MEDS ORDERED: Flumazenil 0.1mg/ml 5ml Inj IV ONE (07:00)
[2017-09-02] MEDS ORDERED: Succinylcholine 20mg/ml 10ml vial ONE (07:00)
[2017-09-02] MEDS ORDERED: LORazepam Inj 2mg/ml 1ml ONE (07:00)
[2017-09-02] MEDS ORDERED: Methohexital Sodium Syr 100mg/10ml IVP ONE (07:00)
[2017-09-02] MEDS ORDERED: Glycopyrrolate 0.2mg/ml 1ml Vial ONE (07:00)
[2017-09-02 07:30] VITALS: BP 175/71
[2017-09-02] MEDS ORDERED: Sodium Chloride 500ML 500 ML IV ONE (07:53)
[2017-09-02] MEDS ORDERED: LORazepam Inj 2mg/ml 1ml IV ONE (07:53)
[2017-09-02 07:55] VITALS: BP 153/52
[2017-09-02 08:00] VITALS: BP 154/64
[2017-09-02 08:05] VITALS: BP 158/48
[2017-09-02 08:10] VITALS: BP 152/58
[2017-09-09 07:45] VITALS: BP 165/107
[2017-09-09] MEDS ORDERED: LORazepam Inj 2mg/ml 1ml IV ONE (07:58)
[2017-09-09] MEDS ORDERED: Sodium Chloride 500ML 500 ML IV ONE (07:58)
[2017-09-09 08:00] VITALS: BP 140/61
[2017-09-09] MEDS ORDERED: Methohexital Sodium Syr 100mg/10ml IVP ONE (08:00)
[2017-09-09] MEDS ORDERED: LORazepam Inj 2mg/ml 1ml ONE (08:00)
[2017-09-09] MEDS ORDERED: Flumazenil 0.1mg/ml 5ml Inj IV ONE (08:00)
[2017-09-09] MEDS ORDERED: Succinylcholine 20mg/ml 10ml vial ONE (08:00)
[2017-09-09] MEDS ORDERED: Glycopyrrolate 0.2mg/ml 1ml Vial ONE (08:00)
[2017-09-09 08:05] VITALS: BP 138/72
[2017-09-09 08:10] VITALS: BP 138/72
[2017-09-09 08:15] VITALS: BP 140/69
== END 2017-09-09 | disposition home or self-care (01) ==
LOC: ECT 06:10
DX: F06.1 Catatonic disorder due to known physiological condition (principal); F84.0 Autistic disorder; R29.90 Unspecified symptoms and signs involving the nervous system
CPT/HCPCS: 90870; J0330

== ENCOUNTER 2017-09-16 05:36 | Outpatient (RCR) | payer BC ==
[~2017-09-16] VITALS: Ht 170.2 cm; Wt 59.0 kg
[2017-09-16] MEDS ORDERED: Methohexital Sodium Syr 100mg/10ml IVP ONE (05:37)
[2017-09-16] MEDS ORDERED: Succinylcholine 20mg/ml 10ml vial ONE (05:37)
[2017-09-16] MEDS ORDERED: Flumazenil 0.1mg/ml 5ml Inj IV ONE (05:37)
[2017-09-16] MEDS ORDERED: LORazepam Inj 2mg/ml 1ml ONE (05:37)
[2017-09-16] MEDS ORDERED: Glycopyrrolate 0.2mg/ml 1ml Vial ONE (05:37)
[2017-09-16 08:12] VITALS: BP 169/110
[2017-09-16] MEDS ORDERED: Atropine Sulfate 0.4mg/ml inj IVP PRN (08:19)
[2017-09-16] MEDS ORDERED: Sodium Chloride 500ML 500 ML IV ONE (08:19)
[2017-09-16] MEDS ORDERED: LORazepam Inj 2mg/ml 1ml IV ONE (08:19)
[2017-09-16 08:20] VITALS: BP 150/74
[2017-09-16 08:25] VITALS: BP 145/105
[2017-09-16 08:30] VITALS: BP 147/69
[2017-09-16 08:35] VITALS: BP 146/73
[2017-09-23] MEDS ORDERED: Flumazenil 0.1mg/ml 5ml Inj IV ONE (07:00)
[2017-09-23] MEDS ORDERED: Glycopyrrolate 0.2mg/ml 1ml Vial ONE (07:00)
[2017-09-23] MEDS ORDERED: Methohexital Sodium Syr 100mg/10ml IVP ONE (07:00)
[2017-09-23] MEDS ORDERED: Succinylcholine 20mg/ml 10ml vial ONE (07:00)
[2017-09-23] MEDS ORDERED: LORazepam Inj 2mg/ml 1ml ONE (07:00)
[2017-09-23 07:47] VITALS: BP 166/76
[2017-09-23] MEDS ORDERED: LORazepam Inj 2mg/ml 1ml IV ONE (08:02)
[2017-09-23] MEDS ORDERED: Sodium Chloride 500ML 500 ML IV ONE (08:02)
[2017-09-23 08:05] VITALS: BP 146/73
[2017-09-23 08:10] VITALS: BP 135/65
[2017-09-23 08:15] VITALS: BP 133/64
[2017-09-23 08:20] VITALS: BP 133/64
[2017-09-30] MEDS ORDERED: Flumazenil 1mg/10ml Inj IV ONE (06:00)
[2017-09-30] MEDS ORDERED: LORazepam Inj 2mg/ml 1ml ONE (06:00)
[2017-09-30] MEDS ORDERED: Methohexital Sodium Syr 100mg/10ml IVP ONE (06:00)
[2017-09-30] MEDS ORDERED: Succinylcholine 20mg/ml 10ml vial ONE (06:00)
[2017-09-30] MEDS ORDERED: Glycopyrrolate 0.2mg/ml 1ml Vial ONE (06:00)
[2017-09-30 07:45] VITALS: BP 168/74
[2017-09-30] MEDS ORDERED: LORazepam Inj 2mg/ml 1ml IV ONE (07:54)
[2017-09-30] MEDS ORDERED: Sodium Chloride 500ML 500 ML IV ONE (07:54)
[2017-09-30 07:55] VITALS: BP 150/85
[2017-09-30 08:00] VITALS: BP 159/69
[2017-09-30 08:05] VITALS: BP 147/83
[2017-09-30 08:10] VITALS: BP 151/67
[2017-10-07 07:43] VITALS: BP 177/103
[2017-10-07] MEDS ORDERED: Sodium Chloride 500ML 500 ML IV ONE (07:59)
[2017-10-07 08:00] VITALS: BP 142/75
[2017-10-07] MEDS ORDERED: Flumazenil 0.1mg/ml 5ml Inj IV ONE (08:00)
[2017-10-07] MEDS ORDERED: Glycopyrrolate 0.2mg/ml 1ml Vial ONE (08:00)
[2017-10-07] MEDS ORDERED: Methohexital Sodium Syr 100mg/10ml IVP ONE (08:00)
[2017-10-07] MEDS ORDERED: Succinylcholine 20mg/ml 10ml vial ONE (08:00)
[2017-10-07 08:05] VITALS: BP 140/77
[2017-10-07 08:10] VITALS: BP 125/72
[2017-10-07 08:15] VITALS: BP 136/72
[2017-10-07] MEDS ORDERED: LORazepam Inj 2mg/ml 1ml IV PRN (16:30)
== END 2017-10-07 | disposition home or self-care (01) ==
LOC: ECT 05:36
DX: F84.0 Autistic disorder (principal)
CPT/HCPCS: 90870; J0330

== ENCOUNTER 2017-10-14 07:00 | Outpatient (RCR) | payer BC ==
[~2017-10-14] VITALS: Ht 170.2 cm; Wt 59.0 kg
[~2017-10-14 07:00] MED LIST: Flumazenil 0.1mg/ml 5ml Inj IV ONE; Glycopyrrolate 0.2mg/ml 1ml Vial ONE; LORazepam Inj 2mg/ml 1ml ONE; Methohexital Sodium Syr 100mg/10ml IVP ONE; NS 500ML ONE; Succinylcholine 20mg/ml 10ml vial ONE
[2017-10-14 07:37] VITALS: BP 158/92
[2017-10-14] MEDS ORDERED: LORazepam Inj 2mg/ml 1ml IV ONE (07:50)
[2017-10-14] MEDS ORDERED: Sodium Chloride 500ML 500 ML IV ONE (07:50)
[2017-10-14 07:55] VITALS: BP 154/63
[2017-10-14 08:00] VITALS: BP 148/66
[2017-10-14 08:05] VITALS: BP 140/77
[2017-10-14 08:10] VITALS: BP 140/77
[2017-10-21 07:42] VITALS: BP 155/95
[2017-10-21] MEDS ORDERED: Succinylcholine 20mg/ml 10ml vial ONE (08:00)
[2017-10-21] MEDS ORDERED: Methohexital Sodium Syr 100mg/10ml IVP ONE (08:00)
[2017-10-21] MEDS ORDERED: Flumazenil 0.1mg/ml 5ml Inj IV ONE (08:00)
[2017-10-21] MEDS ORDERED: Glycopyrrolate 0.2mg/ml 1ml Vial ONE (08:00)
[2017-10-21] MEDS ORDERED: LORazepam Inj 2mg/ml 1ml ONE (08:00)
[2017-10-21] MEDS ORDERED: Sodium Chloride 500ML 500 ML IV ONE (08:02)
[2017-10-21 08:05] VITALS: BP 147/72
[2017-10-21] MEDS ORDERED: LORazepam Inj 2mg/ml 1ml IV ONE (08:05)
[2017-10-21 08:10] VITALS: BP 146/58
[2017-10-21 08:15] VITALS: BP 134/66
[2017-10-21 08:20] VITALS: BP 140/63
[2017-10-28] MEDS ORDERED: Sodium Chloride 500ML 500 ML IV ONE (05:30)
[2017-10-28] MEDS ORDERED: Flumazenil 0.1mg/ml 5ml Inj IV ONE (06:00)
[2017-10-28] MEDS ORDERED: Glycopyrrolate 0.2mg/ml 1ml Vial ONE (06:00)
[2017-10-28] MEDS ORDERED: Methohexital Sodium Syr 100mg/10ml IVP ONE (06:00)
[2017-10-28] MEDS ORDERED: Succinylcholine 20mg/ml 10ml vial ONE (06:00)
[2017-10-28] MEDS ORDERED: NS 500ML ONE (06:00)
[2017-10-28] MEDS ORDERED: LORazepam Inj 2mg/ml 1ml ONE (06:00)
[2017-10-28 07:35] VITALS: BP 176/102
[2017-10-28 07:55] VITALS: BP 145/69
[2017-10-28 08:00] VITALS: BP 145/74
[2017-10-28 08:05] VITALS: BP 133/68
[2017-10-28 08:10] VITALS: BP 138/61
[2017-10-28] MEDS ORDERED: LORazepam Inj 2mg/ml 1ml IV ONE (10:40)
[2017-11-04 07:43] VITALS: BP 161/94
[2017-11-04] MEDS ORDERED: Glycopyrrolate 0.2mg/ml 1ml Vial ONE (08:00)
[2017-11-04] MEDS ORDERED: LORazepam Inj 2mg/ml 1ml ONE (08:00)
[2017-11-04] MEDS ORDERED: Flumazenil 1mg/10ml Inj IV ONE (08:00)
[2017-11-04] MEDS ORDERED: Succinylcholine 20mg/ml 10ml vial ONE (08:00)
[2017-11-04] MEDS ORDERED: Methohexital Sodium Syr 100mg/10ml IVP ONE (08:00)
[2017-11-04] MEDS ORDERED: LORazepam Inj 2mg/ml 1ml IV PRN (08:01)
[2017-11-04] MEDS ORDERED: Sodium Chloride 500ML 500 ML IV ONE (08:01)
[2017-11-04 08:05] VITALS: BP 154/67
[2017-11-04 08:10] VITALS: BP 154/56
[2017-11-04 08:15] VITALS: BP 136/58
[2017-11-04 08:20] VITALS: BP 137/60
== END 2017-11-07 | disposition home or self-care (01) ==
LOC: ECT 07:00
DX: F06.1 Catatonic disorder due to known physiological condition (principal); F84.0 Autistic disorder
CPT/HCPCS: 90870; J0330; J7040

== ENCOUNTER 2017-11-11 06:49 | Outpatient (RCR) | payer BC ==
[~2017-11-11] VITALS: Ht 170.2 cm; Wt 59.0 kg
[2017-11-11] MEDS ORDERED: NS 500ML ONE ×2 (06:50)
[2017-11-11] MEDS ORDERED: Glycopyrrolate 0.2mg/ml 1ml Vial ONE ×2 (06:50)
[2017-11-11] MEDS ORDERED: Methohexital Sodium 500mg Vial IVP ONE (06:50)
[2017-11-11] MEDS ORDERED: Methohexital Sodium Syr 100mg/10ml IVP ONE (06:50)
[2017-11-11] MEDS ORDERED: Flumazenil 0.1mg/ml 5ml Inj IV ONE ×2 (06:50)
[2017-11-11] MEDS ORDERED: Succinylcholine 20mg/ml 10ml vial ONE ×2 (06:50)
[2017-11-11] MEDS ORDERED: LORazepam Inj 2mg/ml 1ml ONE ×2 (06:50)
[2017-11-11 08:03] VITALS: BP 162/101
[2017-11-11] MEDS ORDERED: Sodium Chloride 500ML 500 ML IV ONE (08:22)
[2017-11-11] MEDS ORDERED: LORazepam Inj 2mg/ml 1ml IV PRN (08:22)
[2017-11-11 08:25] VITALS: BP 149/70
[2017-11-11 08:30] VITALS: BP 144/68
[2017-11-11 08:35] VITALS: BP 144/70
[2017-11-11 11:59] VITALS: BP 162/101
[2017-11-18 07:51] VITALS: BP 156/90
[2017-11-18] MEDS ORDERED: Sodium Chloride 500ML 500 ML IV ONE (08:06)
[2017-11-18] MEDS ORDERED: LORazepam Inj 2mg/ml 1ml IV ONE (08:06)
[2017-11-18 08:10] VITALS: BP 166/70
[2017-11-18 08:15] VITALS: BP 144/65
[2017-11-18 08:20] VITALS: BP 153/48
[2017-11-18 08:25] VITALS: BP 151/55
[2017-11-25] MEDS ORDERED: Methohexital Sodium Syr 100mg/10ml IVP ONE (07:00)
[2017-11-25] MEDS ORDERED: Flumazenil 0.1mg/ml 5ml Inj IV ONE (07:00)
[2017-11-25] MEDS ORDERED: Succinylcholine 20mg/ml 10ml vial ONE (07:00)
[2017-11-25] MEDS ORDERED: Glycopyrrolate 0.2mg/ml 1ml Vial ONE (07:00)
[2017-11-25 07:32] VITALS: BP 150/93
[2017-11-25] MEDS ORDERED: LORazepam Inj 2mg/ml 1ml IV PRN (07:52)
[2017-11-25] MEDS ORDERED: Sodium Chloride 500ML 500 ML IV ONE (07:52)
[2017-11-25 07:55] VITALS: BP 152/78
[2017-11-25 08:00] VITALS: BP 153/70
[2017-11-25 08:05] VITALS: BP 144/77
[2017-11-25 08:10] VITALS: BP 143/68
[2017-12-02 07:42] VITALS: BP 158/96
[2017-12-02] MEDS ORDERED: Sodium Chloride 500ML 500 ML IV ONE (07:56)
[2017-12-02 08:00] VITALS: BP 148/65
[2017-12-02] MEDS ORDERED: Flumazenil 0.1mg/ml 5ml Inj IV ONE (08:00)
[2017-12-02] MEDS ORDERED: Methohexital Sodium Syr 100mg/10ml IVP ONE (08:00)
[2017-12-02] MEDS ORDERED: Midazolam 2mg/2ml Inj ONE (08:00)
[2017-12-02] MEDS ORDERED: Succinylcholine 20mg/ml 10ml vial ONE (08:00)
[2017-12-02] MEDS ORDERED: Glycopyrrolate 0.2mg/ml 1ml Vial ONE (08:00)
[2017-12-02 08:05] VITALS: BP 142/51
[2017-12-02 08:10] VITALS: BP 136/57
[2017-12-02 08:15] VITALS: BP 128/58
[2017-12-03] MEDS ORDERED: LORazepam Inj 2mg/ml 1ml IV ONE (15:15)
== END 2017-12-07 | disposition home or self-care (01) ==
LOC: ECT 06:49
DX: F84.0 Autistic disorder (principal)
CPT/HCPCS: 90870; J0330; J2250; J3490; J7040

== ENCOUNTER 2017-12-09 05:17 | Outpatient (RCR) | payer BC ==
[~2017-12-09] VITALS: Ht 170.2 cm; Wt 59.0 kg
[2017-12-09] MEDS ORDERED: Flumazenil 0.1mg/ml 5ml Inj IV ONE ×3 (05:18)
[2017-12-09] MEDS ORDERED: Methohexital Sodium Syr 100mg/10ml IVP ONE ×2 (05:18)
[2017-12-09] MEDS ORDERED: Methohexital Sodium 500mg Vial IVP ONE (05:18)
[2017-12-09] MEDS ORDERED: LORazepam Inj 2mg/ml 1ml ONE ×3 (05:18)
[2017-12-09] MEDS ORDERED: Glycopyrrolate 0.2mg/ml 1ml Vial ONE ×3 (05:18)
[2017-12-09] MEDS ORDERED: NS 500ML ONE ×2 (05:18)
[2017-12-09] MEDS ORDERED: Succinylcholine 20mg/ml 10ml vial ONE ×3 (05:18)
[2017-12-09 07:43] VITALS: BP 157/79
[2017-12-09] MEDS ORDERED: LORazepam Inj 2mg/ml 1ml IV ONE (07:54)
[2017-12-09 07:55] VITALS: BP 141/54
[2017-12-09 08:00] VITALS: BP 142/59
[2017-12-09 08:05] VITALS: BP 140/61
[2017-12-09 08:10] VITALS: BP 128/69
[2017-12-10] MEDS ORDERED: Sodium Chloride 500ML 500 ML IV ONE (07:54)
[2017-12-16 07:35] VITALS: BP 160/102
[2017-12-16] MEDS ORDERED: LORazepam Inj 2mg/ml 1ml IV ONE (07:50)
[2017-12-16] MEDS ORDERED: Sodium Chloride 500ML 500 ML IV ONE (07:50)
[2017-12-16 07:55] VITALS: BP 143/48
[2017-12-16 08:00] VITALS: BP 136/51
[2017-12-16 08:05] VITALS: BP 134/65
[2017-12-16 08:10] VITALS: BP 143/56
[2017-12-16 08:15] VITALS: BP 145/60
[2017-12-23] MEDS ORDERED: Flumazenil 0.1mg/ml 5ml Inj IV ONE (07:00)
[2017-12-23] MEDS ORDERED: Methohexital Sodium Syr 100mg/10ml IVP ONE (07:00)
[2017-12-23] MEDS ORDERED: Succinylcholine 20mg/ml 10ml vial ONE (07:00)
[2017-12-23] MEDS ORDERED: Glycopyrrolate 0.2mg/ml 1ml Vial ONE (07:00)
[2017-12-23] MEDS ORDERED: LORazepam Inj 2mg/ml 1ml ONE (07:00)
[2017-12-23 07:40] VITALS: BP 162/88
[2017-12-23 07:55] VITALS: BP 146/68
[2017-12-23] MEDS ORDERED: LORazepam Inj 2mg/ml 1ml IV ONE (07:58)
[2017-12-23] MEDS ORDERED: Sodium Chloride 500ML 500 ML IV ONE (07:58)
[2017-12-23] MEDS ORDERED: Atropine Sulfate 0.4mg/ml inj IVP PRN (07:58)
[2017-12-23 08:00] VITALS: BP 145/56
[2017-12-30 08:04] VITALS: BP 148/90
[2017-12-30] MEDS ORDERED: LORazepam Inj 2mg/ml 1ml IV ONE (08:23)
[2017-12-30] MEDS ORDERED: Sodium Chloride 500ML 500 ML IV ONE (08:23)
[2017-12-30] MEDS ORDERED: Atropine Sulfate 0.4mg/ml inj IVP PRN (08:23)
[2017-12-30 08:25] VITALS: BP 143/79
[2017-12-30 08:30] VITALS: BP 141/69
[2017-12-30 08:35] VITALS: BP 139/71
[2017-12-30 08:40] VITALS: BP 140/63
[2018-01-06] MEDS ORDERED: LORazepam Inj 2mg/ml 1ml ONE (07:00)
[2018-01-06] MEDS ORDERED: Flumazenil 0.1mg/ml 5ml Inj IV ONE (07:00)
[2018-01-06] MEDS ORDERED: Succinylcholine 20mg/ml 10ml vial ONE (07:00)
[2018-01-06] MEDS ORDERED: Methohexital Sodium Syr 100mg/10ml IVP ONE (07:00)
[2018-01-06] MEDS ORDERED: Glycopyrrolate 0.2mg/ml 1ml Vial ONE (07:00)
[2018-01-06 07:33] VITALS: BP 158/83
[2018-01-06] MEDS ORDERED: Sodium Chloride 500ML 500 ML IV ONE (07:45)
[2018-01-06] MEDS ORDERED: LORazepam Inj 2mg/ml 1ml IV PRN (07:45)
[2018-01-06 07:50] VITALS: BP 152/83
[2018-01-06 07:55] VITALS: BP 148/77
[2018-01-06 08:00] VITALS: BP 146/51
[2018-01-06 08:05] VITALS: BP 143/53
[2018-01-06 08:10] VITALS: BP 138/75
== END 2018-01-07 | disposition home or self-care (01) ==
LOC: ECT 05:17
DX: F84.0 Autistic disorder (principal)
CPT/HCPCS: 90870; J0330; J3490; J7040

== ENCOUNTER 2018-01-13 04:44 | Outpatient (RCR) | payer BC ==
[~2018-01-13] VITALS: Ht 170.2 cm; Wt 59.0 kg
[2018-01-13] MEDS ORDERED: Succinylcholine 20mg/ml 10ml vial ONE (04:45)
[2018-01-13] MEDS ORDERED: Flumazenil 0.1mg/ml 5ml Inj IV ONE (04:45)
[2018-01-13] MEDS ORDERED: Glycopyrrolate 0.2mg/ml 1ml Vial ONE (04:45)
[2018-01-13] MEDS ORDERED: LORazepam Inj 2mg/ml 1ml ONE (04:45)
[2018-01-13] MEDS ORDERED: Methohexital Sodium Syr 100mg/10ml IVP ONE (04:45)
[2018-01-13 07:50] VITALS: BP 161/74
[2018-01-13] MEDS ORDERED: Sodium Chloride 500ML 500 ML IV ONE (08:02)
[2018-01-13] MEDS ORDERED: LORazepam Inj 2mg/ml 1ml IV ONE (08:02)
[2018-01-13 08:05] VITALS: BP 141/78
[2018-01-13 08:10] VITALS: BP 140/72
[2018-01-13 08:15] VITALS: BP 151/70
[2018-01-13 08:20] VITALS: BP 150/71
[2018-01-20] MEDS ORDERED: Succinylcholine 20mg/ml 10ml vial ONE (07:00)
[2018-01-20] MEDS ORDERED: Flumazenil 0.1mg/ml 5ml Inj IV ONE (07:00)
[2018-01-20] MEDS ORDERED: Glycopyrrolate 0.2mg/ml 1ml Vial ONE (07:00)
[2018-01-20] MEDS ORDERED: Methohexital Sodium Syr 100mg/10ml IVP ONE (07:00)
[2018-01-20] MEDS ORDERED: NS 500ML ONE (07:00)
[2018-01-20 07:42] VITALS: BP 160/109
[2018-01-20 08:05] VITALS: BP 131/41
[2018-01-20 08:10] VITALS: BP 139/62
[2018-01-20 08:15] VITALS: BP 103/43
[2018-01-20 08:20] VITALS: BP 110/55
[2018-01-20] MEDS ORDERED: Atropine Sulfate 0.4mg/ml inj IVP PRN ×2 (14:45)
[2018-01-20] MEDS ORDERED: LORazepam Inj 2mg/ml 1ml IV PRN (14:45)
[2018-01-27] MEDS ORDERED: Methohexital Sodium Syr 100mg/10ml IVP ONE (07:00)
[2018-01-27] MEDS ORDERED: Succinylcholine 20mg/ml 10ml vial ONE (07:00)
[2018-01-27] MEDS ORDERED: Flumazenil 0.1mg/ml 5ml Inj IV ONE (07:00)
[2018-01-27] MEDS ORDERED: Glycopyrrolate 0.2mg/ml 1ml Vial ONE (07:00)
[2018-01-27] MEDS ORDERED: LORazepam Inj 2mg/ml 1ml ONE (07:00)
[2018-01-27 07:40] VITALS: BP 178/99
[2018-01-27] MEDS ORDERED: Sodium Chloride 500ML 500 ML IV ONE (07:52)
[2018-01-27 07:55] VITALS: BP 133/56
[2018-01-27 08:00] VITALS: BP 128/61
[2018-01-27 08:05] VITALS: BP 127/48
[2018-01-27 08:10] VITALS: BP 129/56
[2018-02-03] MEDS ORDERED: Succinylcholine 20mg/ml 10ml vial ONE (07:00)
[2018-02-03] MEDS ORDERED: Sodium Chloride 500ML 500 ML IV ONE (07:00)
[2018-02-03] MEDS ORDERED: Flumazenil 0.1mg/ml 5ml Inj IV ONE (07:00)
[2018-02-03] MEDS ORDERED: Methohexital Sodium Syr 100mg/10ml IVP ONE (07:00)
[2018-02-03] MEDS ORDERED: LORazepam Inj 2mg/ml 1ml ONE (07:00)
[2018-02-03] MEDS ORDERED: NS 500ML ONE (07:00)
[2018-02-03] MEDS ORDERED: Glycopyrrolate 0.2mg/ml 1ml Vial ONE (07:00)
[2018-02-03 07:03] VITALS: BP 148/97
[2018-02-03 07:20] VITALS: BP 153/84
[2018-02-03 07:25] VITALS: BP 150/82
[2018-02-03 07:30] VITALS: BP 152/72
== END 2018-02-06 | disposition home or self-care (01) ==
LOC: ECT 04:44
DX: F84.0 Autistic disorder (principal)
CPT/HCPCS: 90870; J0330; J7040

== ENCOUNTER 2018-02-08 05:14 | Outpatient (RCR) | payer BC ==
[~2018-02-08] VITALS: Ht 170.2 cm; Wt 59.0 kg
[2018-02-08] MEDS ORDERED: LORazepam Inj 2mg/ml 1ml ONE (05:15)
[2018-02-08] MEDS ORDERED: Glycopyrrolate 0.2mg/ml 1ml Vial ONE (05:15)
[2018-02-08] MEDS ORDERED: Succinylcholine 20mg/ml 10ml vial ONE (05:15)
[2018-02-08] MEDS ORDERED: Flumazenil 0.1mg/ml 5ml Inj IV ONE (05:15)
[2018-02-08] MEDS ORDERED: Methohexital Sodium Syr 100mg/10ml IVP ONE (05:15)
[2018-02-08 08:08] VITALS: BP 163/100
[2018-02-08 08:30] VITALS: BP 145/81
[2018-02-08] MEDS ORDERED: LORazepam Inj 2mg/ml 1ml IV PRN (08:30)
[2018-02-08] MEDS ORDERED: Sodium Chloride 500ML 500 ML IV ONE (08:30)
[2018-02-08 08:35] VITALS: BP 141/76
[2018-02-08 08:40] VITALS: BP 135/57
[2018-02-08 08:45] VITALS: BP 134/58
[2018-02-12] MEDS ORDERED: LORazepam Inj 2mg/ml 1ml ONE (07:00)
[2018-02-12] MEDS ORDERED: Flumazenil 0.1mg/ml 5ml Inj IV ONE (07:00)
[2018-02-12] MEDS ORDERED: Methohexital Sodium Syr 100mg/10ml IVP ONE (07:00)
[2018-02-12] MEDS ORDERED: Glycopyrrolate 0.2mg/ml 1ml Vial ONE (07:00)
[2018-02-12] MEDS ORDERED: Succinylcholine 20mg/ml 10ml vial ONE (07:00)
[2018-02-12 07:37] VITALS: BP 167/89
[2018-02-12 07:52] VITALS: BP 144/54
[2018-02-12] MEDS ORDERED: Sodium Chloride 500ML 500 ML IV ONE (07:52)
[2018-02-12] MEDS ORDERED: LORazepam Inj 2mg/ml 1ml IV PRN ×2 (07:52→16:15)
[2018-02-12 07:57] VITALS: BP 149/52
[2018-02-12 08:02] VITALS: BP 151/39
[2018-02-17] MEDS ORDERED: Flumazenil 0.1mg/ml 5ml Inj IV ONE (05:15)
[2018-02-17] MEDS ORDERED: Succinylcholine 20mg/ml 10ml vial ONE (05:15)
[2018-02-17] MEDS ORDERED: NS 500ML ONE (05:15)
[2018-02-17] MEDS ORDERED: LORazepam Inj 2mg/ml 1ml ONE (05:15)
[2018-02-17] MEDS ORDERED: Methohexital Sodium Syr 100mg/10ml IVP ONE (05:15)
[2018-02-17] MEDS ORDERED: Glycopyrrolate 0.2mg/ml 1ml Vial ONE (05:15)
[2018-02-17 07:52] VITALS: BP 155/99
[2018-02-17 08:05] VITALS: BP 154/71
[2018-02-17 08:10] VITALS: BP 143/56
[2018-02-17 08:15] VITALS: BP_SYST 134; BP_SYST 143; BP_DIAS 48; BP_DIAS 56
[2018-02-17 08:20] VITALS: BP 138/48
[2018-02-17 08:25] VITALS: BP_SYST 137; BP_SYST 144; BP_DIAS 53; BP_DIAS 81
[2018-02-24 07:29] VITALS: BP 182/98
[2018-02-24 07:45] VITALS: BP 150/60
[2018-02-24] MEDS ORDERED: Sodium Chloride 500ML 500 ML IV ONE (07:47)
[2018-02-24 07:50] VITALS: BP 128/53
[2018-02-24 07:55] VITALS: BP 136/72
[2018-02-24 08:00] VITALS: BP 137/29
[2018-02-24] MEDS ORDERED: LORazepam Inj 2mg/ml 1ml ONE (08:00)
[2018-02-24] MEDS ORDERED: Flumazenil 0.1mg/ml 5ml Inj IV ONE (08:00)
[2018-02-24] MEDS ORDERED: Glycopyrrolate 0.2mg/ml 1ml Vial ONE (08:00)
[2018-02-24] MEDS ORDERED: Methohexital Sodium Syr 100mg/10ml IVP ONE (08:00)
[2018-02-24] MEDS ORDERED: Succinylcholine 20mg/ml 10ml vial ONE (08:00)
[2018-02-24 08:05] VITALS: BP 139/90
[2018-03-03] MEDS ORDERED: Succinylcholine 20mg/ml 10ml vial ONE (07:00)
[2018-03-03] MEDS ORDERED: Flumazenil 0.1mg/ml 5ml Inj IV ONE (07:00)
[2018-03-03] MEDS ORDERED: LORazepam Inj 2mg/ml 1ml ONE (07:00)
[2018-03-03] MEDS ORDERED: Methohexital Sodium Syr 100mg/10ml IVP ONE (07:00)
[2018-03-03] MEDS ORDERED: Glycopyrrolate 0.2mg/ml 1ml Vial ONE (07:00)
[2018-03-03 07:38] VITALS: BP 175/83
[2018-03-03 08:20] VITALS: BP 146/60
[2018-03-03 08:25] VITALS: BP 144/62
[2018-03-03 08:30] VITALS: BP 131/70
[2018-03-03 08:35] VITALS: BP 115/91
[2018-03-03] MEDS ORDERED: Sodium Chloride 500ML 500 ML IV ONE (15:15)
== END 2018-03-09 | disposition home or self-care (01) ==
LOC: ECT 05:14
DX: F06.1 Catatonic disorder due to known physiological condition (principal); F84.0 Autistic disorder
CPT/HCPCS: 90870; J0330; J7040

== ENCOUNTER 2018-03-10 05:09 | Outpatient (RCR) | payer BC ==
[~2018-03-10] VITALS: Ht 170.2 cm; Wt 59.0 kg
[2018-03-10] MEDS ORDERED: LORazepam Inj 2mg/ml 1ml ONE ×2 (05:10)
[2018-03-10] MEDS ORDERED: NS 500ML ONE (05:10)
[2018-03-10] MEDS ORDERED: Succinylcholine 20mg/ml 10ml vial ONE ×2 (05:10)
[2018-03-10] MEDS ORDERED: Flumazenil 0.1mg/ml 5ml Inj IV ONE ×2 (05:10)
[2018-03-10] MEDS ORDERED: Glycopyrrolate 0.2mg/ml 1ml Vial ONE ×2 (05:10)
[2018-03-10] MEDS ORDERED: Methohexital Sodium Syr 100mg/10ml IVP ONE ×2 (05:10)
[2018-03-10 07:37] VITALS: BP 162/94
[2018-03-10] MEDS ORDERED: Atropine Sulfate 0.4mg/ml inj IVP PRN (08:03)
[2018-03-10] MEDS ORDERED: LORazepam Inj 2mg/ml 1ml IV ONE (08:03)
[2018-03-10] MEDS ORDERED: Sodium Chloride 500ML 500 ML IV ONE (08:03)
[2018-03-10 08:05] VITALS: BP 133/98
[2018-03-10 08:10] VITALS: BP 112/70
[2018-03-10 08:15] VITALS: BP 128/64
[2018-03-10 08:20] VITALS: BP 159/87
[2018-03-17 07:44] VITALS: BP 165/90
[2018-03-17] MEDS ORDERED: Sodium Chloride 500ML 500 ML IV ONE (08:03)
[2018-03-17] MEDS ORDERED: Atropine Sulfate 0.4mg/ml inj IVP PRN (08:03)
[2018-03-17] MEDS ORDERED: LORazepam Inj 2mg/ml 1ml IV ONE (08:03)
[2018-03-17 08:05] VITALS: BP 157/90
[2018-03-17 08:10] VITALS: BP 138/99
[2018-03-17 08:15] VITALS: BP 140/91
[2018-03-17 08:20] VITALS: BP 152/92
[2018-03-24 07:41] VITALS: BP 146/113
[2018-03-24] MEDS ORDERED: Flumazenil 0.1mg/ml 5ml Inj IV ONE (08:00)
[2018-03-24] MEDS ORDERED: LORazepam Inj 2mg/ml 1ml ONE (08:00)
[2018-03-24] MEDS ORDERED: Succinylcholine 20mg/ml 10ml vial ONE (08:00)
[2018-03-24] MEDS ORDERED: Methohexital Sodium Syr 100mg/10ml IVP ONE (08:00)
[2018-03-24] MEDS ORDERED: Glycopyrrolate 0.2mg/ml 1ml Vial ONE (08:00)
[2018-03-24] MEDS ORDERED: Sodium Chloride 500ML 500 ML IV ONE (08:02)
[2018-03-24] MEDS ORDERED: LORazepam Inj 2mg/ml 1ml IV ONE (08:02)
[2018-03-24 08:05] VITALS: BP 143/67
[2018-03-24 08:10] VITALS: BP 137/56
[2018-03-24 08:15] VITALS: BP 146/62
[2018-03-24 08:20] VITALS: BP 139/76
[2018-03-31 07:44] VITALS: BP 160/94
[2018-03-31] MEDS ORDERED: Sodium Chloride 500ML 500 ML IV ONE (07:54)
[2018-03-31] MEDS ORDERED: LORazepam Inj 2mg/ml 1ml IV ONE (07:54)
[2018-03-31 07:55] VITALS: BP 144/63
[2018-03-31 08:00] VITALS: BP 139/60
[2018-03-31] MEDS ORDERED: Glycopyrrolate 0.2mg/ml 1ml Vial ONE (08:00)
[2018-03-31] MEDS ORDERED: Methohexital Sodium Syr 100mg/10ml IVP ONE (08:00)
[2018-03-31] MEDS ORDERED: Succinylcholine 20mg/ml 10ml vial ONE (08:00)
[2018-03-31] MEDS ORDERED: Flumazenil 0.1mg/ml 5ml Inj IV ONE (08:00)
[2018-03-31] MEDS ORDERED: LORazepam Inj 2mg/ml 1ml ONE (08:00)
[2018-03-31 08:05] VITALS: BP 139/71
[2018-03-31 08:10] VITALS: BP 141/73
[2018-04-07] MEDS ORDERED: Succinylcholine 20mg/ml 10ml vial ONE (06:00)
[2018-04-07] MEDS ORDERED: Glycopyrrolate 0.2mg/ml 1ml Vial ONE (06:00)
[2018-04-07] MEDS ORDERED: Methohexital Sodium Syr 100mg/10ml IVP ONE (06:00)
[2018-04-07] MEDS ORDERED: Flumazenil 0.1mg/ml 5ml Inj IV ONE (06:00)
[2018-04-07] MEDS ORDERED: NS 500ML ONE (06:00)
[2018-04-07] MEDS ORDERED: LORazepam Inj 2mg/ml 1ml ONE (06:00)
[2018-04-07 08:00] VITALS: BP 157/95
[2018-04-07] MEDS ORDERED: LORazepam Inj 2mg/ml 1ml IV PRN (08:17)
[2018-04-07] MEDS ORDERED: Sodium Chloride 500ML 500 ML IV ONE (08:17)
[2018-04-07 08:20] VITALS: BP 149/71
[2018-04-07 08:25] VITALS: BP 136/64
[2018-04-07 08:30] VITALS: BP 121/71
[2018-04-07 08:35] VITALS: BP 131/89
== END 2018-04-09 | disposition home or self-care (01) ==
LOC: ECT 05:09
DX: F06.1 Catatonic disorder due to known physiological condition (principal); F84.0 Autistic disorder
CPT/HCPCS: 90870; J0330; J7040

== ENCOUNTER 2018-04-14 06:18 | Outpatient (RCR) | payer BC ==
[~2018-04-14] VITALS: Ht 170.2 cm; Wt 59.0 kg
[2018-04-14] MEDS ORDERED: LORazepam Inj 2mg/ml 1ml ONE ×2 (06:19)
[2018-04-14] MEDS ORDERED: Methohexital Sodium Syr 100mg/10ml IVP ONE ×2 (06:19)
[2018-04-14] MEDS ORDERED: Succinylcholine 20mg/ml 10ml vial ONE ×2 (06:19)
[2018-04-14] MEDS ORDERED: Flumazenil 0.1mg/ml 5ml Inj IV ONE ×2 (06:19)
[2018-04-14] MEDS ORDERED: Glycopyrrolate 0.2mg/ml 1ml Vial ONE ×2 (06:19)
[2018-04-14 07:27] VITALS: BP 159/83
[2018-04-14] MEDS ORDERED: Sodium Chloride 500ML 500 ML IV ONE (07:39)
[2018-04-14 07:40] VITALS: BP 146/75
[2018-04-14 07:45] VITALS: BP 136/41
[2018-04-14 07:50] VITALS: BP 141/47
[2018-04-14 07:55] VITALS: BP 141/47
[2018-04-14] MEDS ORDERED: LORazepam Inj 2mg/ml 1ml IV PRN (13:45)
[2018-04-21 07:30] VITALS: BP 150/86
[2018-04-21] MEDS ORDERED: LORazepam Inj 2mg/ml 1ml IV ONE (07:59)
[2018-04-21] MEDS ORDERED: Sodium Chloride 500ML 500 ML IV ONE (07:59)
[2018-04-21 08:00] VITALS: BP 145/59
[2018-04-21 08:05] VITALS: BP 141/72
[2018-04-21 08:10] VITALS: BP 137/54
[2018-04-21 08:15] VITALS: BP 142/61
[2018-04-21] MEDS ORDERED: Methohexital Sodium Syr 100mg/10ml IVP ONE (09:00)
[2018-04-21] MEDS ORDERED: Succinylcholine 20mg/ml 10ml vial ONE (09:00)
[2018-04-21] MEDS ORDERED: Glycopyrrolate 0.2mg/ml 1ml Vial ONE (09:00)
[2018-04-21] MEDS ORDERED: Flumazenil 0.1mg/ml 5ml Inj IV ONE (09:00)
[2018-04-21] MEDS ORDERED: LORazepam Inj 2mg/ml 1ml ONE (09:00)
[2018-04-28 08:09] VITALS: BP 154/99
[2018-04-28] MEDS ORDERED: LORazepam Inj 2mg/ml 1ml IV ONE (08:21)
[2018-04-28] MEDS ORDERED: Sodium Chloride 500ML 500 ML IV ONE (08:21)
[2018-04-28 08:25] VITALS: BP 153/78
[2018-04-28 08:30] VITALS: BP 153/78
[2018-04-28 08:35] VITALS: BP 153/75
[2018-04-28 08:40] VITALS: BP 162/41
[2018-05-05] MEDS ORDERED: Methohexital Sodium Syr 100mg/10ml IVP ONE (07:00)
[2018-05-05] MEDS ORDERED: Flumazenil 0.1mg/ml 5ml Inj IV ONE (07:00)
[2018-05-05] MEDS ORDERED: Succinylcholine 20mg/ml 10ml vial ONE (07:00)
[2018-05-05] MEDS ORDERED: LORazepam Inj 2mg/ml 1ml ONE (07:00)
[2018-05-05] MEDS ORDERED: Glycopyrrolate 0.2mg/ml 1ml Vial ONE (07:00)
[2018-05-05 07:55] VITALS: BP 151/110
[2018-05-05] MEDS ORDERED: Sodium Chloride 500ML 500 ML IV ONE (08:11)
[2018-05-05] MEDS ORDERED: LORazepam Inj 2mg/ml 1ml IV ONE (08:11)
[2018-05-05 08:15] VITALS: BP 148/72
[2018-05-05 08:20] VITALS: BP 147/79
[2018-05-05 08:25] VITALS: BP 136/76
[2018-05-05 08:30] VITALS: BP 147/77
== END 2018-05-09 | disposition home or self-care (01) ==
LOC: ECT 06:18
DX: F84.0 Autistic disorder (principal); F06.1 Catatonic disorder due to known physiological condition
CPT/HCPCS: 90870; J0330

== ENCOUNTER 2018-05-12 06:18 | Outpatient (RCR) | payer BC ==
[~2018-05-12] VITALS: Ht 30.5 cm; Wt 0.5 kg
[2018-05-12] MEDS ORDERED: LORazepam Inj 2mg/ml 1ml ONE (06:19)
[2018-05-12] MEDS ORDERED: Methohexital Sodium Syr 100mg/10ml IVP ONE (06:19)
[2018-05-12] MEDS ORDERED: Glycopyrrolate 0.2mg/ml 1ml Vial ONE (06:19)
[2018-05-12] MEDS ORDERED: Succinylcholine 20mg/ml 10ml vial ONE (06:19)
[2018-05-12] MEDS ORDERED: Flumazenil 0.1mg/ml 5ml Inj IV ONE (06:19)
[2018-05-12 08:17] VITALS: BP 139/83
[2018-05-12] MEDS ORDERED: Sodium Chloride 500ML 500 ML IV ONE (08:24)
[2018-05-12] MEDS ORDERED: LORazepam Inj 2mg/ml 1ml IV ONE (08:24)
[2018-05-12 08:25] VITALS: BP 144/64
[2018-05-12 08:30] VITALS: BP 136/63
[2018-05-12 08:35] VITALS: BP 135/66
[2018-05-12 08:40] VITALS: BP 121/55
[2018-05-19 07:37] VITALS: BP 155/92
[2018-05-19] MEDS ORDERED: LORazepam Inj 2mg/ml 1ml IV ONE (07:52)
[2018-05-19] MEDS ORDERED: Sodium Chloride 500ML 500 ML IV ONE (07:52)
[2018-05-19 07:55] VITALS: BP 140/76
[2018-05-19 08:00] VITALS: BP 140/68
[2018-05-19] MEDS ORDERED: Flumazenil 0.1mg/ml 5ml Inj IV ONE (08:00)
[2018-05-19] MEDS ORDERED: LORazepam Inj 2mg/ml 1ml ONE (08:00)
[2018-05-19] MEDS ORDERED: Succinylcholine 20mg/ml 10ml vial ONE (08:00)
[2018-05-19] MEDS ORDERED: Glycopyrrolate 0.2mg/ml 1ml Vial ONE (08:00)
[2018-05-19] MEDS ORDERED: Methohexital Sodium Syr 100mg/10ml IVP ONE (08:00)
[2018-05-19 08:05] VITALS: BP 130/68
[2018-05-19 08:10] VITALS: BP 133/50
[2018-05-26] MEDS ORDERED: Succinylcholine 20mg/ml 10ml vial ONE (06:00)
[2018-05-26] MEDS ORDERED: LORazepam Inj 2mg/ml 1ml ONE (06:00)
[2018-05-26] MEDS ORDERED: Flumazenil 0.1mg/ml 5ml Inj IV ONE (06:00)
[2018-05-26] MEDS ORDERED: NS 500ML ONE (06:00)
[2018-05-26] MEDS ORDERED: Glycopyrrolate 0.2mg/ml 1ml Vial ONE (06:00)
[2018-05-26] MEDS ORDERED: Methohexital Sodium Syr 100mg/10ml IVP ONE (06:00)
[2018-05-26 08:46] VITALS: BP 141/66
[2018-05-26] MEDS ORDERED: Sodium Chloride 500ML 500 ML IV ONE (09:00)
[2018-05-26] MEDS ORDERED: LORazepam Inj 2mg/ml 1ml IV ONE (09:00)
[2018-05-26 09:05] VITALS: BP 147/76
[2018-05-26 09:10] VITALS: BP 144/77
[2018-05-26 09:15] VITALS: BP 141/74
[2018-05-26 09:20] VITALS: BP 138/61
[2018-06-02 07:36] VITALS: BP 164/102
[2018-06-02] MEDS ORDERED: Sodium Chloride 500ML 500 ML IV ONE (07:47)
[2018-06-02] MEDS ORDERED: LORazepam Inj 2mg/ml 1ml IV ONE (07:47)
[2018-06-02 07:50] VITALS: BP 148/81
[2018-06-02 07:55] VITALS: BP 146/74
[2018-06-02 08:00] VITALS: BP 141/63
[2018-06-02] MEDS ORDERED: LORazepam Inj 2mg/ml 1ml ONE (08:00)
[2018-06-02] MEDS ORDERED: Succinylcholine 20mg/ml 10ml vial ONE (08:00)
[2018-06-02] MEDS ORDERED: NS 500ML ONE (08:00)
[2018-06-02] MEDS ORDERED: Glycopyrrolate 0.2mg/ml 1ml Vial ONE (08:00)
[2018-06-02] MEDS ORDERED: Methohexital Sodium Syr 100mg/10ml IVP ONE (08:00)
[2018-06-02] MEDS ORDERED: Flumazenil 0.1mg/ml 5ml Inj IV ONE (08:00)
[2018-06-02 08:05] VITALS: BP 136/69
[2018-06-09 08:09] VITALS: BP 156/94
[2018-06-09] MEDS ORDERED: Sodium Chloride 500ML 500 ML IV ONE (08:26)
[2018-06-09] MEDS ORDERED: Atropine Sulfate 0.4mg/ml inj IVP PRN (08:26)
[2018-06-09 08:30] VITALS: BP 148/69
[2018-06-09 08:35] VITALS: BP 146/62
[2018-06-09 08:40] VITALS: BP 152/64
[2018-06-09 08:45] VITALS: BP 142/75
[2018-06-09] MEDS ORDERED: Methohexital Sodium Syr 100mg/10ml IVP ONE (13:07)
[2018-06-09] MEDS ORDERED: Glycopyrrolate 0.2mg/ml 1ml Vial ONE (13:07)
[2018-06-09] MEDS ORDERED: LORazepam Inj 2mg/ml 1ml ONE (13:07)
[2018-06-09] MEDS ORDERED: Succinylcholine 20mg/ml 10ml vial ONE (13:07)
[2018-06-09] MEDS ORDERED: NS 500ML ONE (13:07)
[2018-06-09] MEDS ORDERED: Flumazenil 0.1mg/ml 5ml Inj IV ONE (13:07)
== END 2018-06-09 | disposition home or self-care (01) ==
LOC: ECT 06:18
DX: F06.1 Catatonic disorder due to known physiological condition (principal); F84.0 Autistic disorder
CPT/HCPCS: 90870; J0330; J7040

== ENCOUNTER 2018-06-16 04:42 | Outpatient (RCR) | payer BC ==
[~2018-06-16] VITALS: Ht 170.2 cm; Wt 67.6 kg
[2018-06-16] MEDS ORDERED: Succinylcholine 20mg/ml 10ml vial ONE (04:43)
[2018-06-16] MEDS ORDERED: Glycopyrrolate 0.2mg/ml 1ml Vial ONE (04:43)
[2018-06-16] MEDS ORDERED: Methohexital Sodium Syr 100mg/10ml IVP ONE (04:43)
[2018-06-16] MEDS ORDERED: LORazepam Inj 2mg/ml 1ml ONE (04:43)
[2018-06-16] MEDS ORDERED: Flumazenil 0.1mg/ml 5ml Inj IV ONE (04:43)
[2018-06-16 08:18] VITALS: BP 145/109
[2018-06-16] MEDS ORDERED: Sodium Chloride 500ML 500 ML IV ONE (08:30)
[2018-06-16] MEDS ORDERED: LORazepam Inj 2mg/ml 1ml IV ONE (08:30)
[2018-06-16 08:35] VITALS: BP 149/70
[2018-06-16 08:40] VITALS: BP 135/73
[2018-06-16 08:45] VITALS: BP 135/81
[2018-06-16 08:50] VITALS: BP 141/79
[2018-06-23] MEDS ORDERED: Succinylcholine 20mg/ml 10ml vial ONE (06:00)
[2018-06-23] MEDS ORDERED: Methohexital Sodium Syr 100mg/10ml IVP ONE (06:00)
[2018-06-23] MEDS ORDERED: NS 500ML ONE (06:00)
[2018-06-23] MEDS ORDERED: Glycopyrrolate 0.2mg/ml 1ml Vial ONE (06:00)
[2018-06-23] MEDS ORDERED: Midazolam 2mg/2ml Inj ONE (06:00)
[2018-06-23] MEDS ORDERED: Flumazenil 0.1mg/ml 5ml Inj IV ONE (06:00)
[2018-06-23 07:43] VITALS: BP 147/91
[2018-06-23] MEDS ORDERED: LORazepam Inj 2mg/ml 1ml IV PRN (07:55)
[2018-06-23] MEDS ORDERED: Sodium Chloride 500ML 500 ML IV ONE (07:55)
[2018-06-23 08:00] VITALS: BP 143/69
[2018-06-23 08:05] VITALS: BP 145/66
[2018-06-23 08:10] VITALS: BP 136/56
[2018-06-23 08:15] VITALS: BP 147/68
[2018-06-30 07:58] VITALS: BP 164/102
[2018-06-30] MEDS ORDERED: Succinylcholine 20mg/ml 10ml vial ONE (08:00)
[2018-06-30] MEDS ORDERED: Methohexital Sodium Syr 100mg/10ml IVP ONE (08:00)
[2018-06-30] MEDS ORDERED: LORazepam Inj 2mg/ml 1ml ONE (08:00)
[2018-06-30] MEDS ORDERED: Glycopyrrolate 0.2mg/ml 1ml Vial ONE (08:00)
[2018-06-30] MEDS ORDERED: Flumazenil 0.1mg/ml 5ml Inj IV ONE (08:00)
[2018-06-30] MEDS ORDERED: Sodium Chloride 500ML 500 ML IV ONE (08:09)
[2018-06-30] MEDS ORDERED: LORazepam Inj 2mg/ml 1ml IV ONE (08:09)
[2018-06-30 08:10] VITALS: BP 146/70
[2018-06-30 08:15] VITALS: BP 131/68
[2018-06-30 08:20] VITALS: BP 136/76
[2018-06-30 08:25] VITALS: BP 132/66
[2018-07-07 07:37] VITALS: BP 183/83
[2018-07-07] MEDS ORDERED: Sodium Chloride 500ML 500 ML IV ONE (07:50)
[2018-07-07] MEDS ORDERED: LORazepam Inj 2mg/ml 1ml IV ONE (07:50)
[2018-07-07 07:55] VITALS: BP 150/70
[2018-07-07 08:00] VITALS: BP 147/60
[2018-07-07] MEDS ORDERED: Succinylcholine 20mg/ml 10ml vial ONE (08:00)
[2018-07-07] MEDS ORDERED: LORazepam Inj 2mg/ml 1ml ONE (08:00)
[2018-07-07] MEDS ORDERED: Methohexital Sodium Syr 100mg/10ml IVP ONE (08:00)
[2018-07-07] MEDS ORDERED: Glycopyrrolate 0.2mg/ml 1ml Vial ONE (08:00)
[2018-07-07] MEDS ORDERED: Flumazenil 0.1mg/ml 5ml Inj IV ONE (08:00)
[2018-07-07 08:05] VITALS: BP 146/70
[2018-07-07 08:10] VITALS: BP 134/82
== END 2018-07-09 | disposition home or self-care (01) ==
LOC: ECT 04:42
DX: F06.1 Catatonic disorder due to known physiological condition (principal); F84.0 Autistic disorder
CPT/HCPCS: 90870; J0330; J2250; J7040

== ENCOUNTER 2018-07-14 04:38 | Outpatient (RCR) | payer BC ==
[~2018-07-14] VITALS: Ht 170.2 cm; Wt 67.6 kg
[2018-07-14] MEDS ORDERED: Flumazenil 0.1mg/ml 5ml Inj IV ONE ×2 (04:39)
[2018-07-14] MEDS ORDERED: Glycopyrrolate 0.2mg/ml 1ml Vial ONE ×2 (04:39)
[2018-07-14] MEDS ORDERED: Succinylcholine 20mg/ml 10ml vial ONE ×2 (04:39)
[2018-07-14] MEDS ORDERED: LORazepam Inj 2mg/ml 1ml ONE ×2 (04:39)
[2018-07-14] MEDS ORDERED: Methohexital Sodium Syr 100mg/10ml IVP ONE ×2 (04:39)
[2018-07-14 07:43] VITALS: BP 157/88
[2018-07-14 08:00] VITALS: BP 149/77
[2018-07-14 08:05] VITALS: BP 140/68
[2018-07-14 08:10] VITALS: BP 139/73
[2018-07-14 08:15] VITALS: BP 132/64
[2018-07-14] MEDS ORDERED: LORazepam Inj 2mg/ml 1ml IV ONE (14:45)
[2018-07-14] MEDS ORDERED: Sodium Chloride 500ML 500 ML IV ONE (14:45)
[2018-07-21 07:45] VITALS: BP 157/98
[2018-07-21] MEDS ORDERED: LORazepam Inj 2mg/ml 1ml IV ONE (08:03)
[2018-07-21] MEDS ORDERED: Sodium Chloride 500ML 500 ML IV ONE (08:03)
[2018-07-21 08:05] VITALS: BP 146/75
[2018-07-21 08:10] VITALS: BP 143/67
[2018-07-21 08:15] VITALS: BP 146/69
[2018-07-21 08:20] VITALS: BP 144/66
[2018-07-28] MEDS ORDERED: NS 500ML ONE (06:00)
[2018-07-28] MEDS ORDERED: Glycopyrrolate 0.2mg/ml 1ml Vial ONE (06:00)
[2018-07-28] MEDS ORDERED: Midazolam 2mg/2ml Inj ONE (06:00)
[2018-07-28] MEDS ORDERED: Methohexital Sodium Syr 100mg/10ml IVP ONE (06:00)
[2018-07-28] MEDS ORDERED: Flumazenil 0.1mg/ml 5ml Inj IV ONE (06:00)
[2018-07-28] MEDS ORDERED: Succinylcholine 20mg/ml 10ml vial ONE (06:00)
[2018-07-28 07:53] VITALS: BP 175/88
[2018-07-28] MEDS ORDERED: Sodium Chloride 500ML 500 ML IV ONE (08:07)
[2018-07-28] MEDS ORDERED: LORazepam Inj 2mg/ml 1ml IV ONE (08:07)
[2018-07-28 08:10] VITALS: BP 147/71
[2018-07-28 08:15] VITALS: BP 147/72
[2018-07-28 08:20] VITALS: BP 132/62
[2018-07-28 08:25] VITALS: BP 132/58
[2018-08-04 07:30] VITALS: BP 181/96
[2018-08-04] MEDS ORDERED: Sodium Chloride 500ML 500 ML IV ONE (07:40)
[2018-08-04] MEDS ORDERED: LORazepam Inj 2mg/ml 1ml IV ONE (07:40)
[2018-08-04 07:45] VITALS: BP 138/57
[2018-08-04 07:50] VITALS: BP 139/60
[2018-08-04 07:55] VITALS: BP 136/52
[2018-08-04 08:00] VITALS: BP 132/56
[2018-08-09 08:08] VITALS: BP 157/91
[2018-08-09] MEDS ORDERED: Sodium Chloride 500ML 500 ML IV ONE (08:20)
[2018-08-09] MEDS ORDERED: LORazepam Inj 2mg/ml 1ml IV ONE (08:20)
[2018-08-09 08:25] VITALS: BP 150/84
[2018-08-09 08:30] VITALS: BP 153/79
[2018-08-09 08:35] VITALS: BP 155/83
[2018-08-09 08:40] VITALS: BP 143/75
[2018-08-09] MEDS ORDERED: Succinylcholine 20mg/ml 10ml vial ONE (14:25)
[2018-08-09] MEDS ORDERED: Glycopyrrolate 0.2mg/ml 1ml Vial ONE (14:25)
[2018-08-09] MEDS ORDERED: Methohexital Sodium Syr 100mg/10ml IVP ONE (14:25)
[2018-08-09] MEDS ORDERED: LORazepam Inj 2mg/ml 1ml ONE (14:25)
[2018-08-09] MEDS ORDERED: Flumazenil 0.1mg/ml 5ml Inj IV ONE (14:25)
== END 2018-08-09 | disposition home or self-care (01) ==
LOC: ECT 04:38
DX: F84.0 Autistic disorder (principal)
CPT/HCPCS: 90870; J0330; J2250; J7040

== ENCOUNTER 2018-08-11 05:38 | Outpatient (RCR) | payer BC ==
[~2018-08-11] VITALS: Ht 170.2 cm; Wt 67.6 kg
[2018-08-11] MEDS ORDERED: Glycopyrrolate 0.2mg/ml 1ml Vial ONE (05:39)
[2018-08-11] MEDS ORDERED: LORazepam Inj 2mg/ml 1ml ONE (05:39)
[2018-08-11] MEDS ORDERED: Flumazenil 0.1mg/ml 5ml Inj IV ONE (05:39)
[2018-08-11] MEDS ORDERED: NS 500ML ONE (05:39)
[2018-08-11] MEDS ORDERED: Succinylcholine 20mg/ml 10ml vial ONE (05:39)
[2018-08-11] MEDS ORDERED: Methohexital Sodium Syr 100mg/10ml IVP ONE (05:39)
[2018-08-11 08:06] VITALS: BP 148/95
[2018-08-11] MEDS ORDERED: LORazepam Inj 2mg/ml 1ml IV PRN (08:17)
[2018-08-11 08:20] VITALS: BP 143/72
[2018-08-11 08:25] VITALS: BP 137/57
[2018-08-11 08:30] VITALS: BP 138/63
[2018-08-11 08:35] VITALS: BP 136/63
[2018-08-18] MEDS ORDERED: Methohexital Sodium Syr 100mg/10ml IVP ONE (07:00)
[2018-08-18] MEDS ORDERED: Succinylcholine 20mg/ml 10ml vial ONE (07:00)
[2018-08-18] MEDS ORDERED: Glycopyrrolate 0.2mg/ml 1ml Vial ONE (07:00)
[2018-08-18] MEDS ORDERED: LORazepam Inj 2mg/ml 1ml ONE (07:00)
[2018-08-18] MEDS ORDERED: NS 500ML ONE (07:00)
[2018-08-18] MEDS ORDERED: Flumazenil 0.1mg/ml 5ml Inj IV ONE (07:00)
[2018-08-18 07:56] VITALS: BP 178/92
[2018-08-18] MEDS ORDERED: LORazepam Inj 2mg/ml 1ml IV ONE (08:11)
[2018-08-18 08:15] VITALS: BP 149/69
[2018-08-18 08:20] VITALS: BP 149/77
[2018-08-18 08:25] VITALS: BP 148/29
[2018-08-18 08:30] VITALS: BP 122/45
[2018-08-25] MEDS ORDERED: Glycopyrrolate 0.2mg/ml 1ml Vial ONE (06:00)
[2018-08-25] MEDS ORDERED: Methohexital Sodium Syr 100mg/10ml IVP ONE (06:00)
[2018-08-25] MEDS ORDERED: Flumazenil 0.1mg/ml 5ml Inj IV ONE (06:00)
[2018-08-25] MEDS ORDERED: NS 500ML ONE (06:00)
[2018-08-25] MEDS ORDERED: LORazepam Inj 2mg/ml 1ml ONE (06:00)
[2018-08-25] MEDS ORDERED: Succinylcholine 20mg/ml 10ml vial ONE (06:00)
[2018-08-25 08:07] VITALS: BP 154/94
[2018-08-25 08:20] VITALS: BP 143/74
[2018-08-25 08:25] VITALS: BP 146/112
[2018-08-25 08:30] VITALS: BP 139/80
[2018-08-25 08:35] VITALS: BP 140/77
[2018-08-27] MEDS ORDERED: LORazepam Inj 2mg/ml 1ml IV PRN (08:20)
[2018-09-01 07:39] VITALS: BP 182/105
[2018-09-01] MEDS ORDERED: LORazepam Inj 2mg/ml 1ml IV ONE (07:56)
[2018-09-01 08:00] VITALS: BP 158/77
[2018-09-01] MEDS ORDERED: Methohexital Sodium Syr 100mg/10ml IVP ONE (08:00)
[2018-09-01] MEDS ORDERED: Succinylcholine 20mg/ml 10ml vial ONE (08:00)
[2018-09-01] MEDS ORDERED: Flumazenil 0.1mg/ml 5ml Inj IV ONE (08:00)
[2018-09-01] MEDS ORDERED: LORazepam Inj 2mg/ml 1ml ONE (08:00)
[2018-09-01] MEDS ORDERED: Glycopyrrolate 0.2mg/ml 1ml Vial ONE (08:00)
[2018-09-01 08:05] VITALS: BP 158/78
[2018-09-01 08:10] VITALS: BP 156/69
[2018-09-01 08:15] VITALS: BP 142/71
[2018-09-08 07:41] VITALS: BP 205/101
[2018-09-08] MEDS ORDERED: LORazepam Inj 2mg/ml 1ml IV ONE (07:56)
[2018-09-08 08:00] VITALS: BP 149/86
[2018-09-08 08:05] VITALS: BP 154/78
[2018-09-08 08:10] VITALS: BP 153/75
[2018-09-08 08:15] VITALS: BP 148/66
[2018-09-08] MEDS ORDERED: Glycopyrrolate 0.2mg/ml 1ml Vial ONE (09:00)
[2018-09-08] MEDS ORDERED: LORazepam Inj 2mg/ml 1ml ONE (09:00)
[2018-09-08] MEDS ORDERED: Flumazenil 0.1mg/ml 5ml Inj IV ONE (09:00)
[2018-09-08] MEDS ORDERED: Succinylcholine 20mg/ml 10ml vial ONE (09:00)
[2018-09-08] MEDS ORDERED: Methohexital Sodium Syr 100mg/10ml IVP ONE (09:00)
== END 2018-09-09 | disposition home or self-care (01) ==
LOC: ECT 05:38
DX: F84.0 Autistic disorder (principal); F06.1 Catatonic disorder due to known physiological condition
CPT/HCPCS: 90870; J0330; J7040

== ENCOUNTER 2018-09-15 04:38 | Outpatient (RCR) | payer BC ==
[~2018-09-15] VITALS: Ht 170.2 cm; Wt 67.6 kg
[2018-09-15] MEDS ORDERED: NS 500ML ONE (06:00)
[2018-09-15] MEDS ORDERED: Methohexital Sodium Syr 100mg/10ml IVP ONE (06:00)
[2018-09-15] MEDS ORDERED: Glycopyrrolate 0.2mg/ml 1ml Vial ONE (06:00)
[2018-09-15] MEDS ORDERED: Flumazenil 0.1mg/ml 5ml Inj IV ONE (06:00)
[2018-09-15] MEDS ORDERED: LORazepam Inj 2mg/ml 1ml ONE (06:00)
[2018-09-15] MEDS ORDERED: Succinylcholine 20mg/ml 10ml vial ONE (06:00)
[2018-09-15 08:00] VITALS: BP 181/91
[2018-09-15] MEDS ORDERED: LORazepam Inj 2mg/ml 1ml IV ONE (08:14)
[2018-09-15 08:15] VITALS: BP 134/71
[2018-09-15 08:20] VITALS: BP 128/41
[2018-09-15 08:25] VITALS: BP 132/55
[2018-09-15 08:30] VITALS: BP 141/55
[2018-09-22] MEDS ORDERED: Succinylcholine 20mg/ml 10ml vial ONE (06:00)
[2018-09-22] MEDS ORDERED: Methohexital Sodium Syr 100mg/10ml IVP ONE (06:00)
[2018-09-22] MEDS ORDERED: NS 500ML ONE (06:00)
[2018-09-22] MEDS ORDERED: Glycopyrrolate 0.2mg/ml 1ml Vial ONE (06:00)
[2018-09-22] MEDS ORDERED: Flumazenil 0.1mg/ml 5ml Inj IV ONE (06:00)
[2018-09-22] MEDS ORDERED: LORazepam Inj 2mg/ml 1ml ONE (06:00)
[2018-09-22 07:42] VITALS: BP 176/93
[2018-09-22] MEDS ORDERED: LORazepam Inj 2mg/ml 1ml IV ONE (07:54)
[2018-09-22 07:55] VITALS: BP 148/86
[2018-09-22 08:00] VITALS: BP 148/72
[2018-09-22 08:05] VITALS: BP 143/55
[2018-09-22 08:10] VITALS: BP 137/48
[2018-09-29] MEDS ORDERED: NS 500ML ONE (06:00)
[2018-09-29] MEDS ORDERED: Methohexital Sodium Syr 100mg/10ml IVP ONE (06:00)
[2018-09-29] MEDS ORDERED: LORazepam Inj 2mg/ml 1ml ONE (06:00)
[2018-09-29] MEDS ORDERED: Flumazenil 0.1mg/ml 5ml Inj IV ONE (06:00)
[2018-09-29] MEDS ORDERED: Succinylcholine 20mg/ml 10ml vial ONE (06:00)
[2018-09-29] MEDS ORDERED: Glycopyrrolate 0.2mg/ml 1ml Vial ONE (06:00)
[2018-09-29 07:35] VITALS: BP 174/99
[2018-09-29] MEDS ORDERED: LORazepam Inj 2mg/ml 1ml IV ONE (07:47)
[2018-09-29 07:50] VITALS: BP 151/74
[2018-09-29 07:55] VITALS: BP 144/74
[2018-09-29 08:00] VITALS: BP 138/69
[2018-09-29 08:05] VITALS: BP 129/67
[2018-10-06] MEDS ORDERED: Glycopyrrolate 0.2mg/ml 1ml Vial ONE (07:00)
[2018-10-06] MEDS ORDERED: Succinylcholine 20mg/ml 10ml vial ONE (07:00)
[2018-10-06] MEDS ORDERED: Flumazenil 0.1mg/ml 5ml Inj IV ONE (07:00)
[2018-10-06] MEDS ORDERED: Methohexital Sodium Syr 100mg/10ml IVP ONE (07:00)
[2018-10-06] MEDS ORDERED: NS 500ML ONE (07:00)
[2018-10-06] MEDS ORDERED: LORazepam Inj 2mg/ml 1ml ONE (07:00)
[2018-10-06 07:50] VITALS: BP 159/91
[2018-10-06] MEDS ORDERED: LORazepam Inj 2mg/ml 1ml IV PRN (07:59)
[2018-10-06 08:00] VITALS: BP 158/91
[2018-10-06 08:05] VITALS: BP 159/78
[2018-10-06 08:10] VITALS: BP 157/73
[2018-10-06 08:15] VITALS: BP 153/94
== END 2018-10-07 | disposition home or self-care (01) ==
LOC: ECT 04:38
DX: F84.0 Autistic disorder (principal); F06.1 Catatonic disorder due to known physiological condition
CPT/HCPCS: 90870; J0330; J7040

== ENCOUNTER 2018-10-13 07:22 | Outpatient (RCR) | payer BC ==
[~2018-10-13] VITALS: Ht 170.2 cm; Wt 67.6 kg
[2018-10-13] MEDS ORDERED: Methohexital Sodium Syr 100mg/10ml IVP ONE (07:23)
[2018-10-13] MEDS ORDERED: Flumazenil 0.1mg/ml 5ml Inj IV ONE (07:23)
[2018-10-13] MEDS ORDERED: Glycopyrrolate 0.2mg/ml 1ml Vial ONE (07:23)
[2018-10-13] MEDS ORDERED: Succinylcholine 20mg/ml 10ml vial ONE (07:23)
[2018-10-13] MEDS ORDERED: LORazepam Inj 2mg/ml 1ml ONE (07:23)
[2018-10-13 07:52] VITALS: BP 181/58
[2018-10-13] MEDS ORDERED: LORazepam Inj 2mg/ml 1ml IV ONE (08:09)
[2018-10-13 08:10] VITALS: BP 161/86
[2018-10-13 08:15] VITALS: BP_SYST 142; BP_SYST 161; BP_DIAS 85; BP_DIAS 86
[2018-10-13 08:20] VITALS: BP 148/86
[2018-10-13 08:25] VITALS: BP 155/62
[2018-10-20] MEDS ORDERED: Glycopyrrolate 0.2mg/ml 1ml Vial ONE (07:00)
[2018-10-20] MEDS ORDERED: Succinylcholine 20mg/ml 10ml vial ONE (07:00)
[2018-10-20] MEDS ORDERED: Methohexital Sodium Syr 100mg/10ml IVP ONE (07:00)
[2018-10-20] MEDS ORDERED: LORazepam Inj 2mg/ml 1ml ONE (07:00)
[2018-10-20] MEDS ORDERED: Flumazenil 0.1mg/ml 5ml Inj IV ONE (07:00)
[2018-10-20] MEDS ORDERED: NS 500ML ONE (07:00)
[2018-10-20 07:42] VITALS: BP 193/78
[2018-10-20] MEDS ORDERED: LORazepam Inj 2mg/ml 1ml IV ONE (07:55)
[2018-10-20 08:00] VITALS: BP 148/74
[2018-10-20 08:05] VITALS: BP 146/73
[2018-10-20 08:10] VITALS: BP 146/63
[2018-10-20 08:15] VITALS: BP 135/97
[2018-10-27 07:28] VITALS: BP 187/96
[2018-10-27] MEDS ORDERED: LORazepam Inj 2mg/ml 1ml IV ONE (07:40)
[2018-10-27 07:45] VITALS: BP 150/71
[2018-10-27 07:50] VITALS: BP 142/84
[2018-10-27 07:55] VITALS: BP 142/84
[2018-10-27 08:00] VITALS: BP 142/84
[2018-10-27] MEDS ORDERED: Methohexital Sodium Syr 100mg/10ml IVP ONE (08:00)
[2018-10-27] MEDS ORDERED: Glycopyrrolate 0.2mg/ml 1ml Vial ONE (08:00)
[2018-10-27] MEDS ORDERED: Succinylcholine 20mg/ml 10ml vial ONE (08:00)
[2018-10-27] MEDS ORDERED: LORazepam Inj 2mg/ml 1ml ONE (08:00)
[2018-10-27] MEDS ORDERED: Flumazenil 0.1mg/ml 5ml Inj IV ONE (08:00)
[2018-11-03] MEDS ORDERED: Flumazenil 0.1mg/ml 5ml Inj IV ONE ×2 (06:00→07:00)
[2018-11-03] MEDS ORDERED: Succinylcholine 20mg/ml 10ml vial ONE (07:00)
[2018-11-03] MEDS ORDERED: NS 500ML ONE (07:00)
[2018-11-03] MEDS ORDERED: LORazepam Inj 2mg/ml 1ml ONE (07:00)
[2018-11-03] MEDS ORDERED: Methohexital Sodium Syr 100mg/10ml IVP ONE (07:00)
[2018-11-03] MEDS ORDERED: Glycopyrrolate 0.2mg/ml 1ml Vial ONE (07:00)
[2018-11-03 07:24] VITALS: BP 173/92
[2018-11-03] MEDS ORDERED: LORazepam Inj 2mg/ml 1ml IV PRN (07:40)
[2018-11-03 07:45] VITALS: BP 150/54
[2018-11-03 07:50] VITALS: BP 147/71
[2018-11-03 07:55] VITALS: BP 140/69
[2018-11-03 08:00] VITALS: BP 134/67
== END 2018-11-07 | disposition home or self-care (01) ==
LOC: ECT 07:22
DX: F84.0 Autistic disorder (principal); F06.1 Catatonic disorder due to known physiological condition
CPT/HCPCS: 90870; J0330; J7040

== ENCOUNTER 2018-11-10 05:17 | Outpatient (RCR) | payer BC ==
[~2018-11-10] VITALS: Ht 170.2 cm; Wt 67.6 kg
[2018-11-10] MEDS ORDERED: NS 500ML ONE (05:18)
[2018-11-10] MEDS ORDERED: Methohexital Sodium Syr 100mg/10ml IVP ONE (05:18)
[2018-11-10] MEDS ORDERED: Succinylcholine 20mg/ml 10ml vial ONE (05:18)
[2018-11-10] MEDS ORDERED: Glycopyrrolate 0.2mg/ml 1ml Vial ONE (05:18)
[2018-11-10] MEDS ORDERED: Flumazenil 0.1mg/ml 5ml Inj IV ONE (05:18)
[2018-11-10] MEDS ORDERED: LORazepam Inj 2mg/ml 1ml ONE (05:18)
[2018-11-10 07:12] VITALS: BP 164/107
[2018-11-10] MEDS ORDERED: LORazepam Inj 2mg/ml 1ml IV PRN (07:27)
[2018-11-10 07:30] VITALS: BP 152/81
[2018-11-10 07:35] VITALS: BP 143/82
[2018-11-10 07:40] VITALS: BP 136/68
[2018-11-10 07:45] VITALS: BP 151/85
[2018-11-17 07:52] VITALS: BP 144/69
[2018-11-17] MEDS ORDERED: Midazolam 2mg/2ml Inj ONE (08:00)
[2018-11-17] MEDS ORDERED: Methohexital Sodium Syr 100mg/10ml IVP ONE (08:00)
[2018-11-17] MEDS ORDERED: Flumazenil 0.1mg/ml 5ml Inj IV ONE (08:00)
[2018-11-17] MEDS ORDERED: Succinylcholine 20mg/ml 10ml vial ONE (08:00)
[2018-11-17] MEDS ORDERED: Glycopyrrolate 0.2mg/ml 1ml Vial ONE (08:00)
[2018-11-17] MEDS ORDERED: LORazepam Inj 2mg/ml 1ml IV ONE (08:02)
[2018-11-17 08:03] VITALS: BP 140/70
[2018-11-17 08:08] VITALS: BP 142/70
[2018-11-17 08:13] VITALS: BP 138/72
[2018-11-17 08:18] VITALS: BP 132/72
[2018-11-24] MEDS ORDERED: Succinylcholine 20mg/ml 10ml vial ONE (07:00)
[2018-11-24] MEDS ORDERED: LORazepam Inj 2mg/ml 1ml ONE (07:00)
[2018-11-24] MEDS ORDERED: NS 500ML ONE (07:00)
[2018-11-24] MEDS ORDERED: Flumazenil 0.1mg/ml 5ml Inj IV ONE (07:00)
[2018-11-24] MEDS ORDERED: Glycopyrrolate 0.2mg/ml 1ml Vial ONE (07:00)
[2018-11-24] MEDS ORDERED: Methohexital Sodium Syr 100mg/10ml IVP ONE (07:00)
[2018-11-24 07:45] VITALS: BP 153/91
[2018-11-24] MEDS ORDERED: LORazepam Inj 2mg/ml 1ml IV ONE (07:57)
[2018-11-24 08:00] VITALS: BP 144/78
[2018-11-24 08:05] VITALS: BP 137/72
[2018-11-24 08:10] VITALS: BP 139/62
[2018-11-24 08:15] VITALS: BP 145/71
[2018-12-01] MEDS ORDERED: Methohexital Sodium Syr 100mg/10ml IVP ONE (08:00)
[2018-12-01] MEDS ORDERED: Flumazenil 0.1mg/ml 5ml Inj IV ONE (08:00)
[2018-12-01] MEDS ORDERED: LORazepam Inj 2mg/ml 1ml ONE (08:00)
[2018-12-01] MEDS ORDERED: Succinylcholine 20mg/ml 10ml vial ONE (08:00)
[2018-12-01] MEDS ORDERED: Glycopyrrolate 0.2mg/ml 1ml Vial ONE (08:00)
[2018-12-01 08:08] VITALS: BP 144/87
[2018-12-01] MEDS ORDERED: LORazepam Inj 2mg/ml 1ml IV PRN (08:18)
[2018-12-01 08:20] VITALS: BP 155/82
[2018-12-01 08:25] VITALS: BP 149/57
[2018-12-01 08:30] VITALS: BP 145/44
[2018-12-01 08:35] VITALS: BP 102/53
== END 2018-12-07 | disposition home or self-care (01) ==
LOC: ECT 05:17
DX: F84.0 Autistic disorder (principal); F06.1 Catatonic disorder due to known physiological condition
CPT/HCPCS: 90870; J0330; J2250; J7040

== ENCOUNTER 2018-12-08 04:41 | Outpatient (RCR) | payer BC ==
[~2018-12-08] VITALS: Ht 30.5 cm; Wt 0.5 kg
[2018-12-08] MEDS ORDERED: LORazepam Inj 2mg/ml 1ml ONE (04:42)
[2018-12-08] MEDS ORDERED: Succinylcholine 20mg/ml 10ml vial ONE (04:42)
[2018-12-08] MEDS ORDERED: Flumazenil 0.1mg/ml 5ml Inj IV ONE (04:42)
[2018-12-08] MEDS ORDERED: Methohexital Sodium Syr 100mg/10ml IVP ONE (04:42)
[2018-12-08] MEDS ORDERED: Glycopyrrolate 0.2mg/ml 1ml Vial ONE (04:42)
[2018-12-08] MEDS ORDERED: LORazepam Inj 2mg/ml 1ml IV ONE (06:00)
[2018-12-08 07:57] VITALS: BP 165/99
[2018-12-08 08:05] VITALS: BP 147/67
[2018-12-08 08:10] VITALS: BP 136/63
[2018-12-08 08:15] VITALS: BP 134/55
[2018-12-08 08:20] VITALS: BP 118/80
[2018-12-15 07:38] VITALS: BP 160/96
[2018-12-15] MEDS ORDERED: LORazepam Inj 2mg/ml 1ml IV ONE (07:51)
[2018-12-15 07:55] VITALS: BP 146/77
[2018-12-15 08:00] VITALS: BP 139/70
[2018-12-15 08:05] VITALS: BP 156/50
[2018-12-15 08:10] VITALS: BP 141/57
[2018-12-22] MEDS ORDERED: Succinylcholine 20mg/ml 10ml vial ONE (06:00)
[2018-12-22] MEDS ORDERED: Glycopyrrolate 0.2mg/ml 1ml Vial ONE (06:00)
[2018-12-22] MEDS ORDERED: NS 500ML ONE (06:00)
[2018-12-22] MEDS ORDERED: Methohexital Sodium Syr 100mg/10ml IVP ONE (06:00)
[2018-12-22] MEDS ORDERED: Flumazenil 0.1mg/ml 5ml Inj IV ONE (06:00)
[2018-12-22] MEDS ORDERED: LORazepam Inj 2mg/ml 1ml IV ONE ×2 (06:00→07:56)
[2018-12-22] MEDS ORDERED: LORazepam Inj 2mg/ml 1ml ONE (06:00)
[2018-12-22 07:43] VITALS: BP 191/93
[2018-12-22 07:56] VITALS: BP 150/73
[2018-12-22 08:01] VITALS: BP 134/45
[2018-12-22 08:06] VITALS: BP 141/73
[2018-12-22 08:11] VITALS: BP 144/65
[2018-12-29 07:40] VITALS: BP 156/106
[2018-12-29] MEDS ORDERED: LORazepam Inj 2mg/ml 1ml IV ONE (07:51)
[2018-12-29 07:55] VITALS: BP 156/65
[2018-12-29 08:00] VITALS: BP 149/63
[2018-12-29] MEDS ORDERED: Succinylcholine 20mg/ml 10ml vial ONE (08:00)
[2018-12-29] MEDS ORDERED: Methohexital Sodium Syr 100mg/10ml IVP ONE (08:00)
[2018-12-29] MEDS ORDERED: Flumazenil 0.1mg/ml 5ml Inj IV ONE (08:00)
[2018-12-29] MEDS ORDERED: LORazepam Inj 2mg/ml 1ml ONE (08:00)
[2018-12-29] MEDS ORDERED: Glycopyrrolate 0.2mg/ml 1ml Vial ONE (08:00)
[2018-12-29 08:05] VITALS: BP 162/58
[2018-12-29 08:10] VITALS: BP 150/74
[2019-01-05 07:42] VITALS: BP 145/95
[2019-01-05] MEDS ORDERED: LORazepam Inj 2mg/ml 1ml IV ONE ×2 (07:53)
[2019-01-05 07:55] VITALS: BP 143/89
[2019-01-05 08:00] VITALS: BP 130/87
[2019-01-05 08:05] VITALS: BP 125/57
[2019-01-05 08:10] VITALS: BP 114/65
[2019-01-05] MEDS ORDERED: Flumazenil 0.1mg/ml 5ml Inj IV ONE (09:00)
[2019-01-05] MEDS ORDERED: Methohexital Sodium Syr 100mg/10ml IVP ONE (09:00)
[2019-01-05] MEDS ORDERED: Glycopyrrolate 0.2mg/ml 1ml Vial ONE (09:00)
[2019-01-05] MEDS ORDERED: Succinylcholine 20mg/ml 10ml vial ONE (09:00)
[2019-01-05] MEDS ORDERED: LORazepam Inj 2mg/ml 1ml ONE (09:00)
[2019-01-07 08:20] VITALS: BP 157/103
[2019-01-07 08:33] VITALS: BP 143/67
[2019-01-07] MEDS ORDERED: LORazepam Inj 2mg/ml 1ml IV ONE (08:33)
[2019-01-07 08:38] VITALS: BP 152/58
[2019-01-07 08:43] VITALS: BP 140/70
[2019-01-07 08:48] VITALS: BP 127/75
[2019-01-07] MEDS ORDERED: Flumazenil 0.1mg/ml 5ml Inj IV ONE (09:00)
[2019-01-07] MEDS ORDERED: LORazepam Inj 2mg/ml 1ml ONE (09:00)
[2019-01-07] MEDS ORDERED: Succinylcholine 20mg/ml 10ml vial ONE (09:00)
[2019-01-07] MEDS ORDERED: Glycopyrrolate 0.2mg/ml 1ml Vial ONE (09:00)
[2019-01-07] MEDS ORDERED: Methohexital Sodium Syr 100mg/10ml IVP ONE (09:00)
== END 2019-01-07 | disposition home or self-care (01) ==
LOC: ECT 04:41
DX: F84.0 Autistic disorder (principal); F06.1 Catatonic disorder due to known physiological condition
CPT/HCPCS: 90870; J0330; J7040

== ENCOUNTER 2019-01-12 04:37 | Outpatient (RCR) | payer BC ==
[~2019-01-12] VITALS: Ht 170.2 cm; Wt 67.6 kg
[2019-01-12] MEDS ORDERED: LORazepam Inj 2mg/ml 1ml ONE ×2 (04:38)
[2019-01-12] MEDS ORDERED: NS 500ML ONE (04:38)
[2019-01-12] MEDS ORDERED: Methohexital Sodium Syr 100mg/10ml IVP ONE (04:38)
[2019-01-12] MEDS ORDERED: Succinylcholine 20mg/ml 10ml vial ONE ×2 (04:38)
[2019-01-12] MEDS ORDERED: Glycopyrrolate 0.2mg/ml 1ml Vial ONE ×2 (04:38)
[2019-01-12] MEDS ORDERED: Methohexital Sodium 500mg Vial IVP ONE (04:38)
[2019-01-12] MEDS ORDERED: Flumazenil 0.1mg/ml 5ml Inj IV ONE ×2 (04:38)
[2019-01-12 07:40] VITALS: BP 149/66
[2019-01-12] MEDS ORDERED: LORazepam Inj 2mg/ml 1ml IV ONE (07:58)
[2019-01-12 08:00] VITALS: BP 151/75
[2019-01-12 08:05] VITALS: BP 157/52
[2019-01-12 08:10] VITALS: BP 148/58
[2019-01-12 08:15] VITALS: BP 126/70
[2019-01-19 07:42] VITALS: BP 154/95
[2019-01-19] MEDS ORDERED: LORazepam Inj 2mg/ml 1ml IV ONE (07:58)
[2019-01-19 08:00] VITALS: BP 146/71
[2019-01-19 08:05] VITALS: BP 146/71
[2019-01-19 08:10] VITALS: BP 146/71
[2019-01-19 08:15] VITALS: BP 141/67
[2019-01-26] MEDS ORDERED: Flumazenil 0.1mg/ml 5ml Inj IV ONE (06:00)
[2019-01-26] MEDS ORDERED: Methohexital Sodium Syr 100mg/10ml IVP ONE (06:00)
[2019-01-26] MEDS ORDERED: Succinylcholine 20mg/ml 10ml vial ONE (06:00)
[2019-01-26] MEDS ORDERED: LORazepam Inj 2mg/ml 1ml ONE (06:00)
[2019-01-26] MEDS ORDERED: NS 500ML ONE (06:00)
[2019-01-26 08:01] VITALS: BP 153/99
[2019-01-26] MEDS ORDERED: LORazepam Inj 2mg/ml 1ml IV ONE (08:15)
[2019-01-26 08:20] VITALS: BP 144/60
[2019-01-26 08:25] VITALS: BP 123/60
[2019-01-26 08:30] VITALS: BP 130/57
[2019-01-26 08:35] VITALS: BP 142/75
[2019-02-02 07:25] VITALS: BP 158/98
[2019-02-02] MEDS ORDERED: LORazepam Inj 2mg/ml 1ml IV ONE (07:44)
[2019-02-02 07:45] VITALS: BP 149/82
[2019-02-02 07:50] VITALS: BP 149/62
[2019-02-02 07:55] VITALS: BP 148/83
[2019-02-02 08:00] VITALS: BP 145/89
[2019-02-02] MEDS ORDERED: LORazepam Inj 2mg/ml 1ml ONE (09:00)
[2019-02-02] MEDS ORDERED: Methohexital Sodium Syr 100mg/10ml IVP ONE (09:00)
[2019-02-02] MEDS ORDERED: Glycopyrrolate 0.2mg/ml 1ml Vial ONE (09:00)
[2019-02-02] MEDS ORDERED: NS 500ML ONE (09:00)
[2019-02-02] MEDS ORDERED: Succinylcholine 20mg/ml 10ml vial ONE (09:00)
[2019-02-02] MEDS ORDERED: Flumazenil 0.1mg/ml 5ml Inj IV ONE (09:00)
== END 2019-02-06 | disposition home or self-care (01) ==
LOC: ECT 04:37
DX: F06.1 Catatonic disorder due to known physiological condition (principal); F84.0 Autistic disorder
CPT/HCPCS: 90870; J0330; J3490; J7040

== ENCOUNTER 2019-02-09 04:30 | Outpatient (RCR) | payer BC ==
[~2019-02-09] VITALS: Ht 170.2 cm; Wt 67.6 kg
[2019-02-09] MEDS ORDERED: Flumazenil 0.1mg/ml 5ml Inj IV ONE (04:31)
[2019-02-09] MEDS ORDERED: Glycopyrrolate 0.2mg/ml 1ml Vial ONE (04:31)
[2019-02-09] MEDS ORDERED: Methohexital Sodium Syr 100mg/10ml IVP ONE (04:31)
[2019-02-09] MEDS ORDERED: LORazepam Inj 2mg/ml 1ml ONE (04:31)
[2019-02-09] MEDS ORDERED: NS 500ML ONE (04:31)
[2019-02-09] MEDS ORDERED: Succinylcholine 20mg/ml 10ml vial ONE (04:31)
[2019-02-09 07:40] VITALS: BP 160/94
[2019-02-09] MEDS ORDERED: LORazepam Inj 2mg/ml 1ml IV ONE (07:58)
[2019-02-09 08:00] VITALS: BP 151/86
[2019-02-09 08:05] VITALS: BP 150/75
[2019-02-09 08:10] VITALS: BP 150/92
[2019-02-09 08:15] VITALS: BP 146/90
[2019-02-16] MEDS ORDERED: Flumazenil 0.1mg/ml 5ml Inj IV ONE (06:00)
[2019-02-16] MEDS ORDERED: Glycopyrrolate 0.2mg/ml 1ml Vial ONE (06:00)
[2019-02-16] MEDS ORDERED: Succinylcholine 20mg/ml 10ml vial ONE (06:00)
[2019-02-16] MEDS ORDERED: LORazepam Inj 2mg/ml 1ml ONE (06:00)
[2019-02-16] MEDS ORDERED: Methohexital Sodium Syr 100mg/10ml IVP ONE (06:00)
[2019-02-16] MEDS ORDERED: NS 500ML ONE (06:00)
[2019-02-16 07:41] VITALS: BP 166/87
[2019-02-16] MEDS ORDERED: LORazepam Inj 2mg/ml 1ml IV ONE (07:56)
[2019-02-16 08:00] VITALS: BP 141/56
[2019-02-16 08:05] VITALS: BP 129/53
[2019-02-16 08:10] VITALS: BP 134/39
[2019-02-16 08:15] VITALS: BP 133/46
[2019-02-23] MEDS ORDERED: Flumazenil 0.1mg/ml 5ml Inj IV ONE (06:00)
[2019-02-23] MEDS ORDERED: Methohexital Sodium Syr 100mg/10ml IVP ONE (06:00)
[2019-02-23] MEDS ORDERED: Succinylcholine 20mg/ml 10ml vial ONE (06:00)
[2019-02-23] MEDS ORDERED: LORazepam Inj 2mg/ml 1ml ONE (06:00)
[2019-02-23] MEDS ORDERED: NS 500ML ONE (06:00)
[2019-02-23] MEDS ORDERED: Glycopyrrolate 0.2mg/ml 1ml Vial ONE (06:00)
[2019-02-23 07:42] VITALS: BP 182/90
[2019-02-23] MEDS ORDERED: LORazepam Inj 2mg/ml 1ml IV ONE (07:54)
[2019-02-23 07:55] VITALS: BP 142/83
[2019-02-23 08:00] VITALS: BP 142/83
[2019-02-23 08:05] VITALS: BP 139/46
[2019-02-23 08:10] VITALS: BP 139/68
[2019-03-02 07:46] VITALS: BP 160/70
[2019-03-02] MEDS ORDERED: LORazepam Inj 2mg/ml 1ml IV ONE (07:57)
[2019-03-02 08:00] VITALS: BP 150/87
[2019-03-02] MEDS ORDERED: Succinylcholine 20mg/ml 10ml vial ONE (08:00)
[2019-03-02] MEDS ORDERED: LORazepam Inj 2mg/ml 1ml ONE (08:00)
[2019-03-02] MEDS ORDERED: NS 500ML ONE (08:00)
[2019-03-02] MEDS ORDERED: Flumazenil 0.1mg/ml 5ml Inj IV ONE (08:00)
[2019-03-02] MEDS ORDERED: Glycopyrrolate 0.2mg/ml 1ml Vial ONE (08:00)
[2019-03-02 08:05] VITALS: BP 134/74
[2019-03-02 08:10] VITALS: BP 139/95
[2019-03-02 09:51] VITALS: BP 116/69
[2019-03-09] MEDS ORDERED: LORazepam Inj 2mg/ml 1ml ONE (06:00)
[2019-03-09] MEDS ORDERED: Succinylcholine 20mg/ml 10ml vial ONE (06:00)
[2019-03-09] MEDS ORDERED: Methohexital Sodium Syr 100mg/10ml IVP ONE (06:00)
[2019-03-09] MEDS ORDERED: NS 500ML ONE (06:00)
[2019-03-09] MEDS ORDERED: Glycopyrrolate 0.2mg/ml 1ml Vial ONE (06:00)
[2019-03-09] MEDS ORDERED: Flumazenil 0.1mg/ml 5ml Inj IV ONE (06:00)
[2019-03-09 07:44] VITALS: BP 172/77
[2019-03-09] MEDS ORDERED: LORazepam Inj 2mg/ml 1ml IV ONE (07:59)
[2019-03-09 08:00] VITALS: BP 147/71
[2019-03-09 08:05] VITALS: BP 142/72
[2019-03-09 08:10] VITALS: BP 140/60
[2019-03-09 08:15] VITALS: BP 139/61
== END 2019-03-09 | disposition home or self-care (01) ==
LOC: ECT 04:30
DX: F84.0 Autistic disorder (principal)
CPT/HCPCS: 90870; J0330; J7040

== ENCOUNTER 2019-03-16 04:25 | Outpatient (RCR) | payer BC ==
[~2019-03-16] VITALS: Ht 170.2 cm; Wt 67.6 kg
[2019-03-16] MEDS ORDERED: Methohexital Sodium Syr 100mg/10ml IVP ONE ×2 (04:26→06:00)
[2019-03-16] MEDS ORDERED: LORazepam Inj 2mg/ml 1ml ONE ×2 (04:26→06:00)
[2019-03-16] MEDS ORDERED: Flumazenil 0.1mg/ml 5ml Inj IV ONE ×2 (04:26→06:00)
[2019-03-16] MEDS ORDERED: Glycopyrrolate 0.2mg/ml 1ml Vial ONE ×2 (04:26→06:00)
[2019-03-16] MEDS ORDERED: Succinylcholine 20mg/ml 10ml vial ONE ×2 (04:26→06:00)
[2019-03-16] MEDS ORDERED: NS 500ML ONE (06:00)
[2019-03-16 08:05] VITALS: BP 153/92
[2019-03-16 08:16] VITALS: BP 146/70
[2019-03-16] MEDS ORDERED: LORazepam Inj 2mg/ml 1ml IV ONE (08:16)
[2019-03-16 08:21] VITALS: BP 133/68
[2019-03-16 08:26] VITALS: BP 140/69
[2019-03-16 08:31] VITALS: BP 126/80
[2019-03-23] MEDS ORDERED: NS 500ML ONE (07:00)
[2019-03-23] MEDS ORDERED: Glycopyrrolate 0.2mg/ml 1ml Vial ONE (07:00)
[2019-03-23] MEDS ORDERED: Methohexital Sodium Syr 100mg/10ml IVP ONE (07:00)
[2019-03-23] MEDS ORDERED: LORazepam Inj 2mg/ml 1ml ONE (07:00)
[2019-03-23] MEDS ORDERED: Succinylcholine 20mg/ml 10ml vial ONE (07:00)
[2019-03-23] MEDS ORDERED: Flumazenil 0.1mg/ml 5ml Inj IV ONE (07:00)
[2019-03-23 07:56] VITALS: BP 167/74
[2019-03-23 08:07] VITALS: BP 149/58
[2019-03-23] MEDS ORDERED: LORazepam Inj 2mg/ml 1ml IV ONE (08:07)
[2019-03-23 08:12] VITALS: BP 136/41
[2019-03-23 08:17] VITALS: BP 140/61
[2019-03-23 08:22] VITALS: BP 131/60
[2019-03-30 09:14] VITALS: BP 149/95
[2019-03-30] MEDS ORDERED: LORazepam Inj 2mg/ml 1ml IV ONE (09:24)
[2019-03-30 09:25] VITALS: BP 143/59
[2019-03-30 09:30] VITALS: BP 139/41
[2019-03-30 09:35] VITALS: BP 134/44
[2019-03-30 09:40] VITALS: BP 131/47
[2019-04-06] MEDS ORDERED: Flumazenil 0.1mg/ml 5ml Inj IV ONE (07:00)
[2019-04-06] MEDS ORDERED: LORazepam Inj 2mg/ml 1ml ONE (07:00)
[2019-04-06] MEDS ORDERED: Succinylcholine 20mg/ml 10ml vial ONE (07:00)
[2019-04-06] MEDS ORDERED: NS 500ML ONE (07:00)
[2019-04-06] MEDS ORDERED: Glycopyrrolate 0.2mg/ml 1ml Vial ONE (07:00)
[2019-04-06] MEDS ORDERED: Methohexital Sodium Syr 100mg/10ml IVP ONE (07:00)
[2019-04-06 08:03] VITALS: BP 158/74
[2019-04-06] MEDS ORDERED: LORazepam Inj 2mg/ml 1ml IV ONE (08:19)
[2019-04-06 08:20] VITALS: BP 149/75
[2019-04-06 08:25] VITALS: BP 141/73
[2019-04-06 08:30] VITALS: BP 142/80
[2019-04-06 08:35] VITALS: BP 152/92
== END 2019-04-09 | disposition home or self-care (01) ==
LOC: ECT 04:25
DX: F06.1 Catatonic disorder due to known physiological condition (principal); F84.0 Autistic disorder
CPT/HCPCS: 90870; J0330; J7040

== ENCOUNTER 2019-04-13 04:32 | Outpatient (RCR) | payer BC ==
[~2019-04-13] VITALS: Ht 170.2 cm; Wt 67.6 kg
[2019-04-13] MEDS ORDERED: Succinylcholine 20mg/ml 10ml vial ONE (04:33)
[2019-04-13] MEDS ORDERED: Flumazenil 0.1mg/ml 5ml Inj IV ONE (04:33)
[2019-04-13] MEDS ORDERED: NS 500ML ONE (04:33)
[2019-04-13] MEDS ORDERED: LORazepam Inj 2mg/ml 1ml ONE (04:33)
[2019-04-13] MEDS ORDERED: Methohexital Sodium Syr 100mg/10ml IVP ONE (04:33)
[2019-04-13] MEDS ORDERED: Glycopyrrolate 0.2mg/ml 1ml Vial ONE (04:33)
[2019-04-13 07:40] VITALS: BP 151/84
[2019-04-13] MEDS ORDERED: LORazepam Inj 2mg/ml 1ml IV ONE (07:51)
[2019-04-13 07:55] VITALS: BP 149/75
[2019-04-13 08:00] VITALS: BP 139/30
[2019-04-13 08:05] VITALS: BP 143/64
[2019-04-13 08:10] VITALS: BP 136/51
[2019-04-20] MEDS ORDERED: Methohexital Sodium Syr 100mg/10ml IVP ONE (07:00)
[2019-04-20] MEDS ORDERED: Glycopyrrolate 0.2mg/ml 1ml Vial ONE (07:00)
[2019-04-20] MEDS ORDERED: LORazepam Inj 2mg/ml 1ml ONE (07:00)
[2019-04-20] MEDS ORDERED: Succinylcholine 20mg/ml 10ml vial ONE (07:00)
[2019-04-20] MEDS ORDERED: Flumazenil 0.1mg/ml 5ml Inj IV ONE (07:00)
[2019-04-20] MEDS ORDERED: NS 500ML ONE (07:00)
[2019-04-20 08:06] VITALS: BP 159/69
[2019-04-20 08:17] VITALS: BP 140/85
[2019-04-20] MEDS ORDERED: LORazepam Inj 2mg/ml 1ml IV ONE (08:17)
[2019-04-20 08:22] VITALS: BP 144/80
[2019-04-20 08:27] VITALS: BP 115/60
[2019-04-20 08:32] VITALS: BP 126/78
[2019-04-27 07:40] VITALS: BP 144/75
[2019-04-27 07:53] VITALS: BP 137/89
[2019-04-27] MEDS ORDERED: LORazepam Inj 2mg/ml 1ml IV ONE (07:53)
[2019-04-27 07:58] VITALS: BP 122/91
[2019-04-27] MEDS ORDERED: LORazepam Inj 2mg/ml 1ml ONE (08:00)
[2019-04-27] MEDS ORDERED: Glycopyrrolate 0.2mg/ml 1ml Vial ONE (08:00)
[2019-04-27] MEDS ORDERED: Methohexital Sodium Syr 100mg/10ml IVP ONE (08:00)
[2019-04-27] MEDS ORDERED: Succinylcholine 20mg/ml 10ml vial ONE (08:00)
[2019-04-27] MEDS ORDERED: NS 500ML ONE (08:00)
[2019-04-27] MEDS ORDERED: Flumazenil 0.1mg/ml 5ml Inj IV ONE (08:00)
[2019-04-27 08:03] VITALS: BP 133/77
[2019-04-27 08:08] VITALS: BP 139/73
[2019-05-04] MEDS ORDERED: Succinylcholine 20mg/ml 10ml vial ONE (06:00)
[2019-05-04] MEDS ORDERED: NS 500ML ONE (06:00)
[2019-05-04] MEDS ORDERED: Glycopyrrolate 0.2mg/ml 1ml Vial ONE (06:00)
[2019-05-04] MEDS ORDERED: Flumazenil 0.1mg/ml 5ml Inj IV ONE (06:00)
[2019-05-04] MEDS ORDERED: LORazepam Inj 2mg/ml 1ml ONE (06:00)
[2019-05-04] MEDS ORDERED: Methohexital Sodium Syr 100mg/10ml IVP ONE (06:00)
[2019-05-04 07:03] VITALS: BP 173/79
[2019-05-04 07:46] VITALS: BP 139/75
[2019-05-04] MEDS ORDERED: LORazepam Inj 2mg/ml 1ml IV ONE (07:46)
[2019-05-04 07:51] VITALS: BP 133/52
[2019-05-04 07:56] VITALS: BP 133/62
[2019-05-04 08:01] VITALS: BP 130/59
== END 2019-05-09 | disposition home or self-care (01) ==
LOC: ECT 04:32
DX: F06.1 Catatonic disorder due to known physiological condition (principal); F84.0 Autistic disorder; Z88.2 Allergy status to sulfonamides; Z88.6 Allergy status to analgesic agent
CPT/HCPCS: 90870; J0330; J7040

== ENCOUNTER 2019-05-11 04:25 | Outpatient (RCR) | payer BC ==
[~2019-05-11] VITALS: Ht 170.2 cm; Wt 67.6 kg
[2019-05-11] MEDS ORDERED: LORazepam Inj 2mg/ml 1ml ONE (04:26)
[2019-05-11] MEDS ORDERED: NS 500ML ONE (04:26)
[2019-05-11] MEDS ORDERED: Glycopyrrolate 0.2mg/ml 1ml Vial ONE (04:26)
[2019-05-11] MEDS ORDERED: Flumazenil 0.1mg/ml 5ml Inj IV ONE (04:26)
[2019-05-11] MEDS ORDERED: Methohexital Sodium Syr 100mg/10ml IVP ONE (04:26)
[2019-05-11] MEDS ORDERED: Succinylcholine 20mg/ml 10ml vial ONE (04:26)
[2019-05-11 08:10] VITALS: BP 183/76
[2019-05-11 08:21] VITALS: BP 144/84
[2019-05-11] MEDS ORDERED: LORazepam Inj 2mg/ml 1ml IV ONE (08:21)
[2019-05-11 08:26] VITALS: BP 146/83
[2019-05-11 08:31] VITALS: BP 143/77
[2019-05-11 08:36] VITALS: BP 134/47
[2019-05-18 08:18] VITALS: BP 166/87
[2019-05-18] MEDS ORDERED: LORazepam Inj 2mg/ml 1ml IV ONE (08:34)
[2019-05-18 08:35] VITALS: BP 144/72
[2019-05-18 08:40] VITALS: BP 144/92
[2019-05-18 08:45] VITALS: BP 145/61
[2019-05-18 08:50] VITALS: BP 129/91
[2019-05-18] MEDS ORDERED: Succinylcholine 20mg/ml 10ml vial ONE (09:00)
[2019-05-18] MEDS ORDERED: Flumazenil 0.1mg/ml 5ml Inj IV ONE (09:00)
[2019-05-18] MEDS ORDERED: LORazepam Inj 2mg/ml 1ml ONE (09:00)
[2019-05-18] MEDS ORDERED: Glycopyrrolate 0.2mg/ml 1ml Vial ONE (09:00)
[2019-05-18] MEDS ORDERED: Methohexital Sodium Syr 100mg/10ml IVP ONE (09:00)
[2019-05-25 07:57] VITALS: BP 158/71
[2019-05-25 08:10] VITALS: BP 149/78
[2019-05-25] MEDS ORDERED: LORazepam Inj 2mg/ml 1ml IV ONE (08:10)
[2019-05-25 08:15] VITALS: BP 142/57
[2019-05-25 08:20] VITALS: BP 111/45
[2019-05-25 08:25] VITALS: BP 139/74
[2019-05-25] MEDS ORDERED: Methohexital Sodium Syr 100mg/10ml IVP ONE (09:00)
[2019-05-25] MEDS ORDERED: Flumazenil 0.1mg/ml 5ml Inj IV ONE (09:00)
[2019-05-25] MEDS ORDERED: LORazepam Inj 2mg/ml 1ml ONE (09:00)
[2019-05-25] MEDS ORDERED: Glycopyrrolate 0.2mg/ml 1ml Vial ONE (09:00)
[2019-05-25] MEDS ORDERED: Succinylcholine 20mg/ml 10ml vial ONE (09:00)
[2019-05-25] MEDS ORDERED: Hydrogen Peroxide 473ml Bottle TOPIC ONE (09:00)
[2019-06-01] MEDS ORDERED: Glycopyrrolate 0.2mg/ml 1ml Vial ONE (06:00)
[2019-06-01] MEDS ORDERED: Flumazenil 0.1mg/ml 5ml Inj IV ONE (06:00)
[2019-06-01] MEDS ORDERED: LORazepam Inj 2mg/ml 1ml ONE (06:00)
[2019-06-01] MEDS ORDERED: NS 500ML ONE (06:00)
[2019-06-01] MEDS ORDERED: Succinylcholine 20mg/ml 10ml vial ONE (06:00)
[2019-06-01] MEDS ORDERED: Methohexital Sodium Syr 100mg/10ml IVP ONE (06:00)
[2019-06-01 07:39] VITALS: BP 152/98
[2019-06-01 07:51] VITALS: BP 148/82
[2019-06-01] MEDS ORDERED: LORazepam Inj 2mg/ml 1ml IV ONE (07:51)
[2019-06-01 07:56] VITALS: BP 142/80
[2019-06-01 08:01] VITALS: BP 103/75
[2019-06-01 08:06] VITALS: BP 114/69
[2019-06-08] MEDS ORDERED: Flumazenil 0.1mg/ml 5ml Inj IV ONE (06:00)
[2019-06-08] MEDS ORDERED: Methohexital Sodium Syr 100mg/10ml IVP ONE (06:00)
[2019-06-08] MEDS ORDERED: NS 500ML ONE (06:00)
[2019-06-08] MEDS ORDERED: Succinylcholine 20mg/ml 10ml vial ONE (06:00)
[2019-06-08] MEDS ORDERED: Glycopyrrolate 0.2mg/ml 1ml Vial ONE (06:00)
[2019-06-08] MEDS ORDERED: LORazepam Inj 2mg/ml 1ml ONE (06:00)
[2019-06-08 08:03] VITALS: BP 185/95
[2019-06-08 08:15] VITALS: BP 148/49
[2019-06-08] MEDS ORDERED: LORazepam Inj 2mg/ml 1ml IV ONE (08:15)
[2019-06-08 08:20] VITALS: BP 138/43
[2019-06-08 08:25] VITALS: BP 140/47
[2019-06-08 08:30] VITALS: BP 142/42
== END 2019-06-09 | disposition home or self-care (01) ==
LOC: ECT 04:25
DX: F06.1 Catatonic disorder due to known physiological condition (principal); F84.0 Autistic disorder
CPT/HCPCS: 90870; J0330; J7040; J7030

== ENCOUNTER 2019-06-15 04:43 | Outpatient (RCR) | payer BC ==
[~2019-06-15] VITALS: Ht 170.2 cm; Wt 67.6 kg
[2019-06-15] MEDS ORDERED: NS 500ML ONE (04:44)
[2019-06-15] MEDS ORDERED: LORazepam Inj 2mg/ml 1ml ONE (04:44)
[2019-06-15] MEDS ORDERED: Methohexital Sodium Syr 100mg/10ml IVP ONE (04:44)
[2019-06-15] MEDS ORDERED: Flumazenil 0.1mg/ml 5ml Inj IV ONE (04:44)
[2019-06-15] MEDS ORDERED: Glycopyrrolate 0.2mg/ml 1ml Vial ONE (04:44)
[2019-06-15] MEDS ORDERED: Succinylcholine 20mg/ml 10ml vial ONE (04:44)
[2019-06-15 08:05] VITALS: BP 157/77
[2019-06-15 08:16] VITALS: BP 143/69
[2019-06-15] MEDS ORDERED: LORazepam Inj 2mg/ml 1ml IV ONE (08:16)
[2019-06-15 08:21] VITALS: BP 138/67
[2019-06-15 08:26] VITALS: BP 139/61
[2019-06-15 08:31] VITALS: BP 129/69
[2019-06-22] MEDS ORDERED: Succinylcholine 20mg/ml 10ml vial ONE (06:00)
[2019-06-22] MEDS ORDERED: NS 500ML ONE (06:00)
[2019-06-22] MEDS ORDERED: Glycopyrrolate 0.2mg/ml 1ml Vial ONE (06:00)
[2019-06-22] MEDS ORDERED: Methohexital Sodium Syr 100mg/10ml IVP ONE (06:00)
[2019-06-22] MEDS ORDERED: Flumazenil 0.1mg/ml 5ml Inj IV ONE (06:00)
[2019-06-22] MEDS ORDERED: LORazepam Inj 2mg/ml 1ml ONE (06:00)
[2019-06-22 08:27] VITALS: BP 158/82
[2019-06-22 08:44] VITALS: BP 147/77
[2019-06-22] MEDS ORDERED: LORazepam Inj 2mg/ml 1ml IV ONE (08:44)
[2019-06-22 08:49] VITALS: BP 146/71
[2019-06-22 08:54] VITALS: BP 142/50
[2019-06-22 08:59] VITALS: BP 138/68
[2019-06-29] MEDS ORDERED: Flumazenil 0.1mg/ml 5ml Inj IV ONE (06:00)
[2019-06-29] MEDS ORDERED: Succinylcholine 20mg/ml 10ml vial ONE (06:00)
[2019-06-29] MEDS ORDERED: LORazepam Inj 2mg/ml 1ml ONE (06:00)
[2019-06-29] MEDS ORDERED: Glycopyrrolate 0.2mg/ml 1ml Vial ONE (06:00)
[2019-06-29] MEDS ORDERED: NS 500ML ONE (06:00)
[2019-06-29] MEDS ORDERED: Methohexital Sodium Syr 100mg/10ml IVP ONE (06:00)
[2019-06-29 08:03] VITALS: BP 168/66
[2019-06-29 08:13] VITALS: BP 140/60
[2019-06-29] MEDS ORDERED: LORazepam Inj 2mg/ml 1ml IV ONE (08:13)
[2019-06-29 08:18] VITALS: BP 128/87
[2019-06-29 08:23] VITALS: BP 139/43
[2019-06-29 08:28] VITALS: BP 135/50
[2019-07-06 08:03] VITALS: BP 155/98
[2019-07-06 08:14] VITALS: BP 148/66
[2019-07-06] MEDS ORDERED: LORazepam Inj 2mg/ml 1ml IV ONE (08:14)
[2019-07-06 08:19] VITALS: BP 142/72
[2019-07-06 08:24] VITALS: BP 139/81
[2019-07-06 08:29] VITALS: BP 133/90
[2019-07-06] MEDS ORDERED: Succinylcholine 20mg/ml 10ml vial ONE (09:00)
[2019-07-06] MEDS ORDERED: Methohexital Sodium Syr 100mg/10ml IVP ONE (09:00)
[2019-07-06] MEDS ORDERED: Flumazenil 0.1mg/ml 5ml Inj IV ONE (09:00)
[2019-07-06] MEDS ORDERED: LORazepam Inj 2mg/ml 1ml ONE (09:00)
[2019-07-06] MEDS ORDERED: Glycopyrrolate 0.2mg/ml 1ml Vial ONE (09:00)
== END 2019-07-09 | disposition home or self-care (01) ==
LOC: ECT 04:43
DX: F84.0 Autistic disorder (principal); F06.1 Catatonic disorder due to known physiological condition
CPT/HCPCS: 90870; J0330; J7030; J7040

== ENCOUNTER 2019-07-13 05:13 | Outpatient (RCR) | payer BC ==
[~2019-07-13] VITALS: Ht 170.2 cm; Wt 67.6 kg
[2019-07-13] MEDS ORDERED: Flumazenil 0.1mg/ml 5ml Inj IV ONE ×2 (05:14)
[2019-07-13] MEDS ORDERED: LORazepam Inj 2mg/ml 1ml ONE ×2 (05:14)
[2019-07-13] MEDS ORDERED: Glycopyrrolate 0.2mg/ml 1ml Vial ONE ×2 (05:14)
[2019-07-13] MEDS ORDERED: Succinylcholine 20mg/ml 10ml vial ONE ×2 (05:14)
[2019-07-13] MEDS ORDERED: Methohexital Sodium Syr 100mg/10ml IVP ONE ×2 (05:14)
[2019-07-13 08:34] VITALS: BP 133/69
[2019-07-13 08:47] VITALS: BP 144/77
[2019-07-13] MEDS ORDERED: LORazepam Inj 2mg/ml 1ml IV ONE (08:47)
[2019-07-13 08:52] VITALS: BP 136/64
[2019-07-13 08:57] VITALS: BP 143/61
[2019-07-13 09:02] VITALS: BP 141/49
[2019-07-20] MEDS ORDERED: Methohexital Sodium Syr 100mg/10ml IVP ONE (06:00)
[2019-07-20] MEDS ORDERED: Succinylcholine 20mg/ml 10ml vial ONE (06:00)
[2019-07-20] MEDS ORDERED: LORazepam Inj 2mg/ml 1ml ONE (06:00)
[2019-07-20] MEDS ORDERED: Flumazenil 0.1mg/ml 5ml Inj IV ONE (06:00)
[2019-07-20] MEDS ORDERED: Glycopyrrolate 0.2mg/ml 1ml Vial ONE (06:00)
[2019-07-20 08:44] VITALS: BP 128/81
[2019-07-20 08:54] VITALS: BP 149/82
[2019-07-20] MEDS ORDERED: LORazepam Inj 2mg/ml 1ml IV ONE (08:54)
[2019-07-20 08:59] VITALS: BP 149/83
[2019-07-20 09:04] VITALS: BP 158/54
[2019-07-20 09:09] VITALS: BP 149/83
[2019-07-27 08:02] VITALS: BP 159/93
[2019-07-27 08:16] VITALS: BP 147/73
[2019-07-27] MEDS ORDERED: LORazepam Inj 2mg/ml 1ml IV ONE (08:16)
[2019-07-27 08:21] VITALS: BP 148/69
[2019-07-27 08:26] VITALS: BP 131/55
[2019-07-27 08:31] VITALS: BP 136/104
[2019-08-02] MEDS ORDERED: NS 500ML ONE (06:00)
[2019-08-02] MEDS ORDERED: Methohexital Sodium Syr 100mg/10ml IVP ONE (06:00)
[2019-08-02] MEDS ORDERED: Succinylcholine 20mg/ml 10ml vial ONE (06:00)
[2019-08-02] MEDS ORDERED: LORazepam Inj 2mg/ml 1ml ONE (06:00)
[2019-08-02] MEDS ORDERED: Glycopyrrolate 0.2mg/ml 1ml Vial ONE (06:00)
[2019-08-02] MEDS ORDERED: Flumazenil 0.1mg/ml 5ml Inj IV ONE (06:00)
[2019-08-02 07:48] VITALS: BP 158/92
[2019-08-02 08:01] VITALS: BP 121/40
[2019-08-02] MEDS ORDERED: Lidocaine 2% 100mg/5ml Carp IV PRN (08:01)
[2019-08-02] MEDS ORDERED: LORazepam Inj 2mg/ml 1ml IV ONE (08:01)
[2019-08-02] MEDS ORDERED: Atropine Sulfate 0.4mg/ml inj IVP PRN (08:01)
[2019-08-02 08:06] VITALS: BP 134/39
[2019-08-02 08:11] VITALS: BP 146/105
[2019-08-02 08:16] VITALS: BP 139/76
[2019-08-09 08:39] VITALS: BP 161/88
[2019-08-09 08:56] VITALS: BP 146/74
[2019-08-09 09:01] VITALS: BP 139/52
[2019-08-09 09:06] VITALS: BP 133/40
[2019-08-09 09:11] VITALS: BP 132/70
== END 2019-08-09 | disposition home or self-care (01) ==
LOC: ECT 05:13
DX: F84.0 Autistic disorder (principal)
CPT/HCPCS: 90870; J7030

== ENCOUNTER 2019-09-14 05:07 | Outpatient (RCR) | payer BC ==
[~2019-09-14] VITALS: Ht 170.2 cm; Wt 67.6 kg
[2019-09-14] MEDS ORDERED: Glycopyrrolate 0.2mg/ml 1ml Vial ONE (05:08)
[2019-09-14] MEDS ORDERED: Succinylcholine 20mg/ml 10ml vial ONE (05:08)
[2019-09-14] MEDS ORDERED: Flumazenil 0.1mg/ml 5ml Inj IV ONE (05:08)
[2019-09-14] MEDS ORDERED: Methohexital Sodium Syr 100mg/10ml IVP ONE (05:08)
[2019-09-14] MEDS ORDERED: LORazepam Inj 2mg/ml 1ml ONE (05:08)
[2019-09-14 07:50] VITALS: BP 145/75
[2019-09-14 08:00] VITALS: BP 145/67
[2019-09-14] MEDS ORDERED: LORazepam Inj 2mg/ml 1ml IV ONE (08:00)
[2019-09-14 08:05] VITALS: BP 146/53
[2019-09-14 08:10] VITALS: BP 135/71
[2019-09-14 08:15] VITALS: BP 140/71
[2019-09-21] MEDS ORDERED: Succinylcholine 20mg/ml 10ml vial ONE (06:00)
[2019-09-21] MEDS ORDERED: Glycopyrrolate 0.2mg/ml 1ml Vial ONE (06:00)
[2019-09-21] MEDS ORDERED: LORazepam Inj 2mg/ml 1ml ONE (06:00)
[2019-09-21] MEDS ORDERED: Methohexital Sodium Syr 100mg/10ml IVP ONE (06:00)
[2019-09-21] MEDS ORDERED: NS 500ML ONE (06:00)
[2019-09-21] MEDS ORDERED: Flumazenil 0.1mg/ml 5ml Inj IV ONE (06:00)
[2019-09-21 07:48] VITALS: BP 163/83
[2019-09-21 07:59] VITALS: BP 149/66
[2019-09-21] MEDS ORDERED: LORazepam Inj 2mg/ml 1ml IV ONE (07:59)
[2019-09-21 08:04] VITALS: BP 138/56
[2019-09-21 08:09] VITALS: BP 127/76
[2019-09-21 08:14] VITALS: BP 131/49
[2019-09-28] MEDS ORDERED: Succinylcholine 20mg/ml 10ml vial ONE (06:00)
[2019-09-28] MEDS ORDERED: Methohexital Sodium Syr 100mg/10ml IVP ONE (06:00)
[2019-09-28] MEDS ORDERED: Glycopyrrolate 0.2mg/ml 1ml Vial ONE (06:00)
[2019-09-28] MEDS ORDERED: NS 500ML ONE (06:00)
[2019-09-28] MEDS ORDERED: LORazepam Inj 2mg/ml 1ml ONE (06:00)
[2019-09-28] MEDS ORDERED: Flumazenil 0.1mg/ml 5ml Inj IV ONE (06:00)
[2019-09-28 07:46] VITALS: BP 166/106
[2019-09-28 07:57] VITALS: BP 146/84
[2019-09-28] MEDS ORDERED: LORazepam Inj 2mg/ml 1ml IV ONE (07:57)
[2019-09-28 08:02] VITALS: BP 148/82
[2019-09-28 08:07] VITALS: BP 145/85
[2019-09-28 08:12] VITALS: BP 133/84
[2019-10-05 08:04] VITALS: BP 157/83
[2019-10-05 08:14] VITALS: BP 143/42
[2019-10-05] MEDS ORDERED: LORazepam Inj 2mg/ml 1ml IV ONE (08:14)
[2019-10-05 08:19] VITALS: BP 141/51
[2019-10-05 08:24] VITALS: BP 140/61
[2019-10-05 08:29] VITALS: BP 136/87
[2019-10-05] MEDS ORDERED: Methohexital Sodium Syr 100mg/10ml IVP ONE (09:00)
[2019-10-05] MEDS ORDERED: Succinylcholine 20mg/ml 10ml vial ONE (09:00)
[2019-10-05] MEDS ORDERED: Flumazenil 0.1mg/ml 5ml Inj IV ONE (09:00)
[2019-10-05] MEDS ORDERED: LORazepam Inj 2mg/ml 1ml ONE (09:00)
[2019-10-05] MEDS ORDERED: Glycopyrrolate 0.2mg/ml 1ml Vial ONE (09:00)
== END 2019-10-08 | disposition home or self-care (01) ==
LOC: ECT 05:07
DX: F06.1 Catatonic disorder due to known physiological condition (principal); F84.0 Autistic disorder
CPT/HCPCS: 90870; J0330; J7030; J7040

== ENCOUNTER 2019-10-12 05:19 | Outpatient (RCR) | payer BC ==
[~2019-10-12] VITALS: Ht 170.2 cm; Wt 67.6 kg
[2019-10-12] MEDS ORDERED: LORazepam Inj 2mg/ml 1ml ONE (05:20)
[2019-10-12] MEDS ORDERED: NS 500ML ONE (05:20)
[2019-10-12] MEDS ORDERED: Succinylcholine 20mg/ml 10ml vial ONE (05:20)
[2019-10-12] MEDS ORDERED: Glycopyrrolate 0.2mg/ml 1ml Vial ONE (05:20)
[2019-10-12] MEDS ORDERED: Methohexital Sodium Syr 100mg/10ml IVP ONE (05:20)
[2019-10-12] MEDS ORDERED: Flumazenil 0.1mg/ml 5ml Inj IV ONE (05:20)
[2019-10-12 08:17] VITALS: BP 161/77
[2019-10-12 08:32] VITALS: BP 154/80
[2019-10-12 08:37] VITALS: BP 164/78
[2019-10-12 08:42] VITALS: BP 160/65
[2019-10-12 08:47] VITALS: BP 151/9
[2019-10-19] MEDS ORDERED: Methohexital Sodium Syr 100mg/10ml IVP ONE (07:00)
[2019-10-19] MEDS ORDERED: Flumazenil 0.1mg/ml 5ml Inj IV ONE (07:00)
[2019-10-19] MEDS ORDERED: Succinylcholine 20mg/ml 10ml vial ONE (07:00)
[2019-10-19] MEDS ORDERED: Glycopyrrolate 0.2mg/ml 1ml Vial ONE (07:00)
[2019-10-19] MEDS ORDERED: LORazepam Inj 2mg/ml 1ml ONE (07:00)
[2019-10-19 07:53] VITALS: BP 151/102
[2019-10-19 08:04] VITALS: BP 148/78
[2019-10-19] MEDS ORDERED: LORazepam Inj 2mg/ml 1ml IV ONE (08:04)
[2019-10-19 08:09] VITALS: BP 147/75
[2019-10-19 08:14] VITALS: BP 144/63
[2019-10-19 08:19] VITALS: BP 133/72
[2019-10-26] MEDS ORDERED: Glycopyrrolate 0.2mg/ml 1ml Vial ONE (06:00)
[2019-10-26] MEDS ORDERED: NS 500ML ONE (06:00)
[2019-10-26] MEDS ORDERED: Methohexital Sodium Syr 100mg/10ml IVP ONE (06:00)
[2019-10-26] MEDS ORDERED: Succinylcholine 20mg/ml 10ml vial ONE (06:00)
[2019-10-26] MEDS ORDERED: LORazepam Inj 2mg/ml 1ml ONE (06:00)
[2019-10-26] MEDS ORDERED: Flumazenil 0.1mg/ml 5ml Inj IV ONE (06:00)
[2019-10-26 08:03] VITALS: BP 149/96
[2019-10-26 08:14] VITALS: BP 147/68
[2019-10-26] MEDS ORDERED: LORazepam Inj 2mg/ml 1ml IV ONE (08:14)
[2019-10-26 08:19] VITALS: BP 150/78
[2019-10-26 08:24] VITALS: BP 105/80
[2019-10-26 08:29] VITALS: BP 117/77
[2019-11-02] MEDS ORDERED: Methohexital Sodium Syr 100mg/10ml IVP ONE (08:00)
[2019-11-02] MEDS ORDERED: Glycopyrrolate 0.2mg/ml 1ml Vial ONE (08:00)
[2019-11-02] MEDS ORDERED: Succinylcholine 20mg/ml 10ml vial ONE (08:00)
[2019-11-02] MEDS ORDERED: LORazepam Inj 2mg/ml 1ml ONE (08:00)
[2019-11-02] MEDS ORDERED: Flumazenil 0.1mg/ml 5ml Inj IV ONE (08:00)
[2019-11-02 08:10] VITALS: BP 157/93
[2019-11-02 08:23] VITALS: BP 144/67
[2019-11-02] MEDS ORDERED: LORazepam Inj 2mg/ml 1ml IV ONE (08:23)
[2019-11-02 08:28] VITALS: BP 137/75
[2019-11-02 08:33] VITALS: BP 152/80
[2019-11-02 08:38] VITALS: BP 106/58
== END 2019-11-08 | disposition home or self-care (01) ==
LOC: ECT 05:19
DX: F06.1 Catatonic disorder due to known physiological condition (principal); F84.0 Autistic disorder
CPT/HCPCS: 90870; J0330; J7030; J7040

== ENCOUNTER 2019-11-09 05:55 | Outpatient (RCR) | payer BC ==
[~2019-11-09] VITALS: Ht 170.2 cm; Wt 67.6 kg
[2019-11-09] MEDS ORDERED: LORazepam Inj 2mg/ml 1ml ONE (05:56)
[2019-11-09] MEDS ORDERED: Flumazenil 0.1mg/ml 5ml Inj IV ONE (05:56)
[2019-11-09] MEDS ORDERED: Glycopyrrolate 0.2mg/ml 1ml Vial ONE (05:56)
[2019-11-09] MEDS ORDERED: Succinylcholine 20mg/ml 10ml vial ONE (05:56)
[2019-11-09] MEDS ORDERED: Methohexital Sodium Syr 100mg/10ml IVP ONE (05:56)
[2019-11-09 08:08] VITALS: BP 164/101
[2019-11-09 08:20] VITALS: BP 141/5
[2019-11-09] MEDS ORDERED: LORazepam Inj 2mg/ml 1ml IV ONE (08:20)
[2019-11-09 08:25] VITALS: BP 136/44
[2019-11-09 08:30] VITALS: BP 132/46
[2019-11-09 08:35] VITALS: BP 133/64
[2019-11-16 08:00] VITALS: BP 168/78
[2019-11-16] MEDS ORDERED: LORazepam Inj 2mg/ml 1ml ONE (08:00)
[2019-11-16] MEDS ORDERED: Methohexital Sodium Syr 100mg/10ml IVP ONE (08:00)
[2019-11-16] MEDS ORDERED: Succinylcholine 20mg/ml 10ml vial ONE (08:00)
[2019-11-16] MEDS ORDERED: Flumazenil 0.1mg/ml 5ml Inj IV ONE (08:00)
[2019-11-16] MEDS ORDERED: Glycopyrrolate 0.2mg/ml 1ml Vial ONE (08:00)
[2019-11-16 08:12] VITALS: BP 149/69
[2019-11-16] MEDS ORDERED: LORazepam Inj 2mg/ml 1ml IV ONE (08:12)
[2019-11-16 08:17] VITALS: BP 152/73
[2019-11-16 08:22] VITALS: BP 103/67
[2019-11-16 08:27] VITALS: BP 156/79
[2019-11-23] MEDS ORDERED: Flumazenil 0.1mg/ml 5ml Inj IV ONE (08:00)
[2019-11-23] MEDS ORDERED: Glycopyrrolate 0.2mg/ml 1ml Vial ONE (08:00)
[2019-11-23] MEDS ORDERED: Succinylcholine 20mg/ml 10ml vial ONE (08:00)
[2019-11-23] MEDS ORDERED: Methohexital Sodium Syr 100mg/10ml IVP ONE (08:00)
[2019-11-23] MEDS ORDERED: LORazepam Inj 2mg/ml 1ml ONE (08:00)
[2019-11-23 08:34] VITALS: BP 165/101
[2019-11-23 08:45] VITALS: BP 147/51
[2019-11-23] MEDS ORDERED: LORazepam Inj 2mg/ml 1ml IV PRN (08:45)
[2019-11-23 08:50] VITALS: BP 144/67
[2019-11-23 08:55] VITALS: BP 150/68
[2019-11-23 09:00] VITALS: BP 142/62
[2019-11-30] MEDS ORDERED: NS 500ML ONE (06:00)
[2019-11-30] MEDS ORDERED: Glycopyrrolate 0.2mg/ml 1ml Vial ONE (06:00)
[2019-11-30] MEDS ORDERED: Methohexital Sodium Syr 100mg/10ml IVP ONE (06:00)
[2019-11-30] MEDS ORDERED: LORazepam Inj 2mg/ml 1ml ONE (06:00)
[2019-11-30] MEDS ORDERED: Flumazenil 0.1mg/ml 5ml Inj IV ONE (06:00)
[2019-11-30] MEDS ORDERED: Succinylcholine 20mg/ml 10ml vial ONE (06:00)
[2019-11-30 08:15] VITALS: BP 140/86
[2019-11-30 08:27] VITALS: BP 140/79
[2019-11-30] MEDS ORDERED: LORazepam Inj 2mg/ml 1ml IV ONE (08:27)
[2019-11-30 08:32] VITALS: BP 128/62
[2019-11-30 08:37] VITALS: BP 129/72
[2019-11-30 08:42] VITALS: BP 115/61
[2019-12-05] MEDS ORDERED: Flumazenil 0.1mg/ml 5ml Inj IV ONE (06:00)
[2019-12-05] MEDS ORDERED: NS 500ML ONE (06:00)
[2019-12-05] MEDS ORDERED: Glycopyrrolate 0.2mg/ml 1ml Vial ONE (06:00)
[2019-12-05] MEDS ORDERED: Succinylcholine 20mg/ml 10ml vial ONE (06:00)
[2019-12-05] MEDS ORDERED: LORazepam Inj 2mg/ml 1ml ONE (06:00)
[2019-12-05] MEDS ORDERED: Methohexital Sodium Syr 100mg/10ml IVP ONE (06:00)
[2019-12-05 08:04] VITALS: BP 170/99
[2019-12-05] MEDS ORDERED: LORazepam Inj 2mg/ml 1ml IV ONE (08:15)
[2019-12-05 08:16] VITALS: BP 140/69
[2019-12-05 08:26] VITALS: BP 141/56
[2019-12-05 08:31] VITALS: BP 139/76
[2019-12-05 08:55] VITALS: BP 150/74
[2019-12-07 08:14] VITALS: BP 116/71
[2019-12-07] MEDS ORDERED: LORazepam Inj 2mg/ml 1ml IV ONE (08:29)
[2019-12-07] MEDS ORDERED: Atropine Sulfate 0.4mg/ml inj IVP PRN (08:29)
[2019-12-07] MEDS ORDERED: Lidocaine 2% 100mg/5ml Carp IV PRN (08:29)
[2019-12-07 08:30] VITALS: BP 133/61
[2019-12-07 08:35] VITALS: BP 122/59
[2019-12-07 08:40] VITALS: BP 118/63
[2019-12-07 08:45] VITALS: BP 116/54
[2019-12-07] MEDS ORDERED: Methohexital Sodium Syr 100mg/10ml IVP ONE (09:00)
[2019-12-07] MEDS ORDERED: LORazepam Inj 2mg/ml 1ml ONE (09:00)
[2019-12-07] MEDS ORDERED: Succinylcholine 20mg/ml 10ml vial ONE (09:00)
[2019-12-07] MEDS ORDERED: Flumazenil 0.1mg/ml 5ml Inj IV ONE (09:00)
[2019-12-07] MEDS ORDERED: Glycopyrrolate 0.2mg/ml 1ml Vial ONE (09:00)
== END 2019-12-08 | disposition home or self-care (01) ==
LOC: ECT 05:55
DX: F06.1 Catatonic disorder due to known physiological condition (principal); F84.0 Autistic disorder
CPT/HCPCS: 90870; J0330; J7030; J7040

== ENCOUNTER 2019-12-14 05:11 | Outpatient (RCR) | payer BC ==
[~2019-12-14] VITALS: Ht 170.2 cm; Wt 67.6 kg
[2019-12-14] MEDS ORDERED: Succinylcholine 20mg/ml 10ml vial ONE (05:12)
[2019-12-14] MEDS ORDERED: LORazepam Inj 2mg/ml 1ml ONE (05:12)
[2019-12-14] MEDS ORDERED: Methohexital Sodium Syr 100mg/10ml IVP ONE (05:12)
[2019-12-14] MEDS ORDERED: Glycopyrrolate 0.2mg/ml 1ml Vial ONE (05:12)
[2019-12-14] MEDS ORDERED: Flumazenil 0.5mg/5ml Inj IV ONE (05:12)
[2019-12-14 08:10] VITALS: BP 153/65
[2019-12-14] MEDS ORDERED: LORazepam Inj 2mg/ml 1ml IV ONE (08:22)
[2019-12-14 08:23] VITALS: BP 136/80
[2019-12-14 08:28] VITALS: BP 138/65
[2019-12-14 08:33] VITALS: BP 134/76
[2019-12-14 08:38] VITALS: BP 114/62
[2019-12-21 08:18] VITALS: BP 150/69
[2019-12-21] MEDS ORDERED: LORazepam Inj 2mg/ml 1ml IV ONE (08:37)
[2019-12-21] MEDS ORDERED: Lidocaine 2% 100mg/5ml Carp IV PRN (08:37)
[2019-12-21] MEDS ORDERED: Atropine Sulfate 0.4mg/ml inj IVP PRN (08:37)
[2019-12-21 08:38] VITALS: BP 144/52
[2019-12-21 08:43] VITALS: BP 126/68
[2019-12-21 08:48] VITALS: BP 126/49
[2019-12-21 08:53] VITALS: BP 125/64
[2019-12-21] MEDS ORDERED: Succinylcholine 20mg/ml 10ml vial ONE (09:00)
[2019-12-21] MEDS ORDERED: Methohexital Sodium Syr 100mg/10ml IVP ONE (09:00)
[2019-12-21] MEDS ORDERED: Flumazenil 0.5mg/5ml Inj IV ONE (09:00)
[2019-12-21] MEDS ORDERED: Glycopyrrolate 0.2mg/ml 1ml Vial ONE (09:00)
[2019-12-28 08:28] VITALS: BP 147/100
[2019-12-28 08:44] VITALS: BP 131/57
[2019-12-28] MEDS ORDERED: Atropine Sulfate 0.4mg/ml inj IVP PRN (08:44)
[2019-12-28] MEDS ORDERED: LORazepam Inj 2mg/ml 1ml IV ONE (08:44)
[2019-12-28] MEDS ORDERED: Lidocaine 2% 100mg/5ml Carp IV PRN (08:44)
[2019-12-28 08:49] VITALS: BP 135/47
[2019-12-28 08:54] VITALS: BP 111/47
[2019-12-28 08:59] VITALS: BP 128/43
[2019-12-28] MEDS ORDERED: LORazepam Inj 2mg/ml 1ml ONE (09:00)
[2019-12-28] MEDS ORDERED: Flumazenil 0.5mg/5ml Inj IV ONE (09:00)
[2019-12-28] MEDS ORDERED: Glycopyrrolate 0.2mg/ml 1ml Vial ONE (09:00)
[2019-12-28] MEDS ORDERED: Succinylcholine 20mg/ml 10ml vial ONE (09:00)
[2019-12-28] MEDS ORDERED: Methohexital Sodium Syr 100mg/10ml IVP ONE (09:00)
[2020-01-04 08:53] VITALS: BP 149/111
[2020-01-04] MEDS ORDERED: Methohexital Sodium Syr 100mg/10ml IVP ONE (09:00)
[2020-01-04] MEDS ORDERED: Glycopyrrolate 0.2mg/ml 1ml Vial ONE (09:00)
[2020-01-04] MEDS ORDERED: Succinylcholine 20mg/ml 10ml vial ONE (09:00)
[2020-01-04] MEDS ORDERED: Flumazenil 0.5mg/5ml Inj IV ONE (09:00)
[2020-01-04] MEDS ORDERED: Lidocaine 2% 100mg/5ml Carp IV PRN (09:08)
[2020-01-04] MEDS ORDERED: Atropine Sulfate 0.4mg/ml inj IVP PRN (09:08)
[2020-01-04 09:14] VITALS: BP_SYST 132; BP_SYST 137; BP_DIAS 59
[2020-01-04 09:19] VITALS: BP 124/45
[2020-01-04 09:24] VITALS: BP 139/65
== END 2020-01-08 | disposition home or self-care (01) ==
LOC: ECT 05:11
DX: F06.1 Catatonic disorder due to known physiological condition (principal); F84.0 Autistic disorder
CPT/HCPCS: 90870; J0330; J2405; J7030

== ENCOUNTER 2020-01-11 05:04 | Outpatient (RCR) | payer BC ==
[~2020-01-11] VITALS: Ht 170.2 cm; Wt 67.6 kg
[2020-01-11] MEDS ORDERED: Flumazenil 1mg/10ml Inj IV ONE (05:05)
[2020-01-11] MEDS ORDERED: NS 500ML ONE (05:05)
[2020-01-11] MEDS ORDERED: Glycopyrrolate 0.2mg/ml 1ml Vial ONE (05:05)
[2020-01-11] MEDS ORDERED: Succinylcholine 20mg/ml 10ml vial ONE (05:05)
[2020-01-11] MEDS ORDERED: Methohexital Sodium Syr 100mg/10ml IVP ONE (05:05)
[2020-01-11 08:26] VITALS: BP 150/89
[2020-01-11 08:38] VITALS: BP 142/81
[2020-01-11 08:43] VITALS: BP 115/37
[2020-01-11 08:48] VITALS: BP 123/81
[2020-01-11 08:53] VITALS: BP 107/56
[2020-01-11 09:04] VITALS: BP 150/89
[2020-01-18] MEDS ORDERED: Flumazenil 0.5mg/5ml Inj IV ONE (06:00)
[2020-01-18] MEDS ORDERED: Methohexital Sodium Syr 100mg/10ml IVP ONE (06:00)
[2020-01-18] MEDS ORDERED: Glycopyrrolate 0.2mg/ml 1ml Vial ONE (06:00)
[2020-01-18] MEDS ORDERED: Succinylcholine 20mg/ml 10ml vial ONE (06:00)
[2020-01-18] MEDS ORDERED: NS 500ML ONE (06:00)
[2020-01-18 08:43] VITALS: BP 158/97
[2020-01-18] MEDS ORDERED: Atropine Sulfate 0.4mg/ml inj IVP PRN (09:04)
[2020-01-18] MEDS ORDERED: Lidocaine 2% 100mg/5ml Carp IV PRN (09:04)
[2020-01-18 09:05] VITALS: BP 139/75
[2020-01-18 09:10] VITALS: BP 141/55
[2020-01-18 09:15] VITALS: BP 145/72
[2020-01-18 09:20] VITALS: BP 140/72
[2020-01-25] VITALS (7 sets, daily range): BP systolic 126–162; BP diastolic 65–90
[2020-01-25] MEDS ORDERED: Methohexital Sodium Syr 100mg/10ml IVP ONE (06:00)
[2020-01-25] MEDS ORDERED: NS 500ML ONE (06:00)
[2020-01-25] MEDS ORDERED: Glycopyrrolate 0.2mg/ml 1ml Vial ONE (06:00)
[2020-01-25] MEDS ORDERED: Succinylcholine 20mg/ml 10ml vial ONE (06:00)
[2020-01-25] MEDS ORDERED: Flumazenil 0.5mg/5ml Inj IV ONE (06:00)
[2020-02-01] MEDS ORDERED: Succinylcholine 20mg/ml 10ml vial ONE (06:00)
[2020-02-01] MEDS ORDERED: Methohexital Sodium Syr 100mg/10ml IVP ONE (06:00)
[2020-02-01] MEDS ORDERED: NS 500ML ONE (06:00)
[2020-02-01] MEDS ORDERED: Flumazenil 0.5mg/5ml Inj IV ONE (06:00)
[2020-02-01] MEDS ORDERED: Glycopyrrolate 0.2mg/ml 1ml Vial ONE (06:00)
[2020-02-01 08:15] VITALS: BP 131/61
[2020-02-01] MEDS ORDERED: Atropine Sulfate 0.4mg/ml inj IVP PRN (08:35)
[2020-02-01] MEDS ORDERED: LORazepam Inj 2mg/ml 1ml IV ONE (08:35)
[2020-02-01] MEDS ORDERED: Lidocaine 2% 100mg/5ml Carp IV PRN (08:35)
[2020-02-01 08:40] VITALS: BP 141/69
[2020-02-01 08:45] VITALS: BP 127/52
[2020-02-01 08:50] VITALS: BP 131/72
[2020-02-01 08:55] VITALS: BP 134/66
== END 2020-02-07 | disposition home or self-care (01) ==
LOC: ECT 05:04
DX: F06.1 Catatonic disorder due to known physiological condition (principal); F84.0 Autistic disorder
CPT/HCPCS: 90870; J0330; J7040

== ENCOUNTER 2020-02-08 05:05 | Outpatient (RCR) | payer BC ==
[~2020-02-08] VITALS: Ht 170.2 cm; Wt 67.6 kg
[2020-02-08] MEDS ORDERED: Methohexital Sodium Syr 100mg/10ml IVP ONE (05:06)
[2020-02-08] MEDS ORDERED: Flumazenil 0.5mg/5ml Inj IV ONE (05:06)
[2020-02-08] MEDS ORDERED: Succinylcholine 20mg/ml 10ml vial ONE (05:06)
[2020-02-08] MEDS ORDERED: Glycopyrrolate 0.2mg/ml 1ml Vial ONE (05:06)
[2020-02-08] MEDS ORDERED: NS 500ML ONE (05:06)
[2020-02-08 08:10] VITALS: BP 167/96
[2020-02-08 08:23] VITALS: BP 140/74
[2020-02-08 08:28] VITALS: BP 139/55
[2020-02-08 08:33] VITALS: BP 136/72
[2020-02-08 08:38] VITALS: BP 126/56
[2020-02-15] MEDS ORDERED: Methohexital Sodium Syr 100mg/10ml IVP ONE (06:00)
[2020-02-15] MEDS ORDERED: Glycopyrrolate 0.2mg/ml 1ml Vial ONE (06:00)
[2020-02-15] MEDS ORDERED: Flumazenil 0.5mg/5ml Inj IV ONE (06:00)
[2020-02-15] MEDS ORDERED: Succinylcholine 20mg/ml 10ml vial ONE (06:00)
[2020-02-15] MEDS ORDERED: NS 500ML ONE (06:00)
[2020-02-15 08:00] VITALS: BP 165/98
[2020-02-15 08:12] VITALS: BP 146/87
[2020-02-15 08:17] VITALS: BP 134/83
[2020-02-15 08:22] VITALS: BP 141/76
[2020-02-15 08:27] VITALS: BP 121/89
[2020-02-22 08:03] VITALS: BP 146/98
[2020-02-22 08:15] VITALS: BP 137/73
[2020-02-22 08:20] VITALS: BP 137/43
[2020-02-22 08:25] VITALS: BP 126/76
[2020-02-22 08:30] VITALS: BP 133/72
[2020-02-22] MEDS ORDERED: Glycopyrrolate 0.2mg/ml 1ml Vial ONE (09:00)
[2020-02-22] MEDS ORDERED: Succinylcholine 20mg/ml 10ml vial ONE (09:00)
[2020-02-22] MEDS ORDERED: Flumazenil 0.5mg/5ml Inj IV ONE (09:00)
[2020-02-22] MEDS ORDERED: Methohexital Sodium Syr 100mg/10ml IVP ONE (09:00)
[2020-02-29] MEDS ORDERED: Succinylcholine 20mg/ml 10ml vial ONE (07:00)
[2020-02-29] MEDS ORDERED: Glycopyrrolate 0.2mg/ml 1ml Vial ONE (07:00)
[2020-02-29] MEDS ORDERED: Methohexital Sodium 500mg Vial IVP ONE (07:00)
[2020-02-29] MEDS ORDERED: Flumazenil 0.5mg/5ml Inj IV ONE (07:00)
[2020-02-29 08:10] VITALS: BP 138/96
[2020-02-29] MEDS ORDERED: Atropine Sulfate 0.4mg/ml inj IVP PRN (08:24)
[2020-02-29] MEDS ORDERED: Lidocaine 2% 100mg/5ml Carp IV PRN (08:24)
[2020-02-29 08:25] VITALS: BP 139/58
[2020-02-29 08:30] VITALS: BP 137/57
[2020-02-29 08:35] VITALS: BP 127/55
[2020-02-29 08:40] VITALS: BP 135/78
[2020-03-07] VITALS (7 sets, daily range): BP systolic 120–152; BP diastolic 69–80
[2020-03-07] MEDS ORDERED: Glycopyrrolate 0.2mg/ml 1ml Vial ONE (06:00)
[2020-03-07] MEDS ORDERED: Flumazenil 0.5mg/5ml Inj IV ONE (06:00)
[2020-03-07] MEDS ORDERED: Methohexital Sodium Syr 100mg/10ml IVP ONE (06:00)
[2020-03-07] MEDS ORDERED: NS 500ML ONE (06:00)
[2020-03-07] MEDS ORDERED: Succinylcholine 20mg/ml 10ml vial ONE (06:00)
== END 2020-03-09 | disposition home or self-care (01) ==
LOC: ECT 05:05
DX: F06.1 Catatonic disorder due to known physiological condition (principal); F84.0 Autistic disorder
CPT/HCPCS: 90870; J0330; J3490; J7030; J7040

== ENCOUNTER 2020-03-14 04:38 | Outpatient (RCR) | payer BC ==
[~2020-03-14] VITALS: Ht 170.2 cm; Wt 67.6 kg
[2020-03-14] VITALS (7 sets, daily range): BP systolic 127–187; BP diastolic 62–98
[2020-03-14] MEDS ORDERED: Flumazenil 0.5mg/5ml Inj IV ONE (06:00)
[2020-03-14] MEDS ORDERED: NS 500ML ONE (06:00)
[2020-03-14] MEDS ORDERED: Methohexital Sodium Syr 100mg/10ml IVP ONE (06:00)
[2020-03-14] MEDS ORDERED: Succinylcholine 20mg/ml 10ml vial ONE (06:00)
[2020-03-14] MEDS ORDERED: Glycopyrrolate 0.2mg/ml 1ml Vial ONE (06:00)
[2020-03-14] MEDS ORDERED: Atropine Sulfate 0.4mg/ml inj IVP PRN (08:49)
[2020-03-14] MEDS ORDERED: Lidocaine 2% 100mg/5ml Carp IV PRN (08:49)
[2020-03-21] VITALS (7 sets, daily range): BP systolic 129–164; BP diastolic 32–93
[2020-03-21] MEDS ORDERED: Succinylcholine 20mg/ml 10ml vial ONE (07:00)
[2020-03-21] MEDS ORDERED: Flumazenil 0.5mg/5ml Inj IV ONE (07:00)
[2020-03-21] MEDS ORDERED: Glycopyrrolate 0.2mg/ml 1ml Vial ONE (07:00)
[2020-03-21] MEDS ORDERED: Methohexital Sodium Syr 100mg/10ml IVP ONE (07:00)
[2020-03-21] MEDS ORDERED: Lidocaine 2% 100mg/5ml Carp IV PRN (08:24)
[2020-03-21] MEDS ORDERED: Atropine Sulfate 0.4mg/ml inj IVP PRN (08:24)
[2020-03-28] VITALS (7 sets, daily range): BP systolic 139–155; BP diastolic 56–90
[2020-03-28] MEDS ORDERED: Flumazenil 0.5mg/5ml Inj IV ONE (08:00)
[2020-03-28] MEDS ORDERED: Methohexital Sodium Syr 100mg/10ml IVP ONE (08:00)
[2020-03-28] MEDS ORDERED: Glycopyrrolate 0.2mg/ml 1ml Vial ONE (08:00)
[2020-03-28] MEDS ORDERED: Succinylcholine 20mg/ml 10ml vial ONE (08:00)
[2020-04-04] VITALS (7 sets, daily range): BP systolic 134–163; BP diastolic 58–100
[2020-04-04] MEDS ORDERED: Methohexital Sodium Syr 100mg/10ml IVP ONE (07:00)
[2020-04-04] MEDS ORDERED: NS 500ML ONE (07:00)
[2020-04-04] MEDS ORDERED: Succinylcholine 20mg/ml 10ml vial ONE (07:00)
[2020-04-04] MEDS ORDERED: Glycopyrrolate 0.2mg/ml 1ml Vial ONE (07:00)
[2020-04-04] MEDS ORDERED: Flumazenil 0.5mg/5ml Inj IV ONE (07:00)
[2020-04-04] MEDS ORDERED: Atropine Sulfate 0.4mg/ml inj IVP PRN (08:28)
== END 2020-04-09 | disposition home or self-care (01) ==
LOC: ECT 04:38
DX: F06.1 Catatonic disorder due to known physiological condition (principal); F84.0 Autistic disorder
CPT/HCPCS: 90870; J0330; J7030; J7040

== ENCOUNTER 2020-04-11 04:23 | Outpatient (RCR) | payer BC ==
[~2020-04-11] VITALS: Ht 170.2 cm; Wt 67.6 kg
[2020-04-11] VITALS (7 sets, daily range): BP systolic 132–145; BP diastolic 40–80
[2020-04-11] MEDS ORDERED: Flumazenil 0.5mg/5ml Inj IV ONE (04:24)
[2020-04-11] MEDS ORDERED: Methohexita Syr 100mg/10ml IVP ONE (04:24)
[2020-04-11] MEDS ORDERED: Succinylcholine 20mg/ml 10ml vial ONE (04:24)
[2020-04-11] MEDS ORDERED: Glycopyrrolate 0.2mg/ml 1ml Vial ONE (04:24)
[2020-04-11] MEDS ORDERED: NS 500ML ONE (04:24)
[2020-04-18] VITALS (7 sets, daily range): BP systolic 141–155; BP diastolic 52–90
[2020-04-18] MEDS ORDERED: Succinylcholine 20mg/ml 10ml vial ONE (09:00)
[2020-04-18] MEDS ORDERED: Glycopyrrolate 0.2mg/ml 1ml Vial ONE (09:00)
[2020-04-18] MEDS ORDERED: Flumazenil 0.5mg/5ml Inj IV ONE (09:00)
[2020-04-18] MEDS ORDERED: Methohexita Syr 100mg/10ml IVP ONE (09:00)
[2020-04-25] VITALS (7 sets, daily range): BP systolic 127–146; BP diastolic 47–97
[2020-04-25] MEDS ORDERED: Flumazenil 0.5mg/5ml Inj IV ONE (09:00)
[2020-04-25] MEDS ORDERED: Succinylcholine 20mg/ml 10ml vial ONE (09:00)
[2020-04-25] MEDS ORDERED: Methohexita Syr 100mg/10ml IVP ONE (09:00)
[2020-04-25] MEDS ORDERED: Glycopyrrolate 0.2mg/ml 1ml Vial ONE (09:00)
[2020-05-02] VITALS (7 sets, daily range): BP systolic 111–153; BP diastolic 44–96
[2020-05-02] MEDS ORDERED: NS 500ML ONE (06:00)
[2020-05-02] MEDS ORDERED: Glycopyrrolate 0.2mg/ml 1ml Vial ONE (06:00)
[2020-05-02] MEDS ORDERED: Methohexita Syr 100mg/10ml IVP ONE (06:00)
[2020-05-02] MEDS ORDERED: Succinylcholine 20mg/ml 10ml vial ONE (06:00)
[2020-05-02] MEDS ORDERED: Flumazenil 0.5mg/5ml Inj IV ONE (06:00)
[2020-05-02] MEDS ORDERED: Atropine Sulfate 0.4mg/ml inj IVP PRN (08:19)
[2020-05-09] VITALS (7 sets, daily range): BP systolic 126–160; BP diastolic 55–99
[2020-05-09] MEDS ORDERED: Succinylcholine 20mg/ml 10ml vial ONE (06:00)
[2020-05-09] MEDS ORDERED: Methohexita Syr 100mg/10ml IVP ONE (06:00)
[2020-05-09] MEDS ORDERED: Glycopyrrolate 0.2mg/ml 1ml Vial ONE (06:00)
[2020-05-09] MEDS ORDERED: Flumazenil 0.5mg/5ml Inj IV ONE (06:00)
== END 2020-05-09 | disposition home or self-care (01) ==
LOC: ECT 04:23
DX: F06.1 Catatonic disorder due to known physiological condition (principal); F84.0 Autistic disorder
CPT/HCPCS: 90870; J0330; J7030; J7040

== ENCOUNTER 2020-05-16 06:20 | Outpatient (RCR) | payer BC ==
[~2020-05-16] VITALS: Ht 170.2 cm; Wt 67.6 kg
[2020-05-16] VITALS (7 sets, daily range): BP systolic 133–151; BP diastolic 58–101
[2020-05-16] MEDS ORDERED: Methohexital Sodium Syr 100mg/10ml IVP ONE (06:21)
[2020-05-16] MEDS ORDERED: Succinylcholine 20mg/ml 10ml vial ONE (06:21)
[2020-05-16] MEDS ORDERED: Flumazenil 1mg/10ml Inj IV ONE (06:21)
[2020-05-16] MEDS ORDERED: Flumazenil 0.5mg/5ml Inj IV ONE (06:21)
[2020-05-16] MEDS ORDERED: Atropine Sulfate 0.4mg/ml inj IVP PRN (08:29)
[2020-05-23] VITALS (7 sets, daily range): BP systolic 123–172; BP diastolic 63–92
[2020-05-23] MEDS ORDERED: Glycopyrrolate 0.2mg/ml 1ml Vial ONE (07:00)
[2020-05-23] MEDS ORDERED: Succinylcholine 20mg/ml 10ml vial ONE (07:00)
[2020-05-23] MEDS ORDERED: Flumazenil 0.5mg/5ml Inj IV ONE (07:00)
[2020-05-23] MEDS ORDERED: Methohexital Sodium Syr 100mg/10ml IVP ONE (07:00)
[2020-05-30] VITALS (7 sets, daily range): BP systolic 137–155; BP diastolic 45–99
[2020-05-30] MEDS ORDERED: Succinylcholine 20mg/ml 10ml vial ONE (09:00)
[2020-05-30] MEDS ORDERED: Glycopyrrolate 0.2mg/ml 1ml Vial ONE (09:00)
[2020-05-30] MEDS ORDERED: Methohexital Sodium Syr 100mg/10ml IVP ONE (09:00)
[2020-05-30] MEDS ORDERED: Flumazenil 0.5mg/5ml Inj IV ONE (09:00)
[2020-06-06] VITALS (7 sets, daily range): BP systolic 111–164; BP diastolic 53–98
[2020-06-06] MEDS ORDERED: Flumazenil 0.5mg/5ml Inj IV ONE (07:00)
[2020-06-06] MEDS ORDERED: Methohexital Sodium Syr 100mg/10ml IVP ONE (07:00)
[2020-06-06] MEDS ORDERED: Glycopyrrolate 0.2mg/ml 1ml Vial ONE (07:00)
[2020-06-06] MEDS ORDERED: Succinylcholine 20mg/ml 10ml vial ONE (07:00)
[2020-06-06] MEDS ORDERED: Atropine Sulfate 0.4mg/ml inj IVP PRN (08:54)
== END 2020-06-09 | disposition home or self-care (01) ==
LOC: ECT 06:20
DX: F06.1 Catatonic disorder due to known physiological condition (principal); F84.0 Autistic disorder
CPT/HCPCS: 90870; J0330; J7030

== ENCOUNTER 2020-06-13 05:33 | Outpatient (RCR) | payer BC ==
[2020-06-13] VITALS (7 sets, daily range): BP systolic 137–154; BP diastolic 62–107
[~2020-06-13] VITALS: Ht 170.2 cm; Wt 67.6 kg
[2020-06-13] MEDS ORDERED: Glycopyrrolate 0.2mg/ml 1ml Vial ONE (05:34)
[2020-06-13] MEDS ORDERED: Flumazenil 0.5mg/5ml Inj IV ONE (05:34)
[2020-06-13] MEDS ORDERED: Succinylcholine 20mg/ml 10ml vial ONE (05:34)
[2020-06-13] MEDS ORDERED: Methohexita Syr 100mg/10ml IVP ONE (05:34)
[2020-06-13] MEDS ORDERED: NS 500ML ONE (05:34)
[2020-06-20] VITALS (7 sets, daily range): BP systolic 123–156; BP diastolic 48–93
[2020-06-20] MEDS ORDERED: Flumazenil 0.5mg/5ml Inj IV ONE (06:00)
[2020-06-20] MEDS ORDERED: Glycopyrrolate 0.2mg/ml 1ml Vial ONE (06:00)
[2020-06-20] MEDS ORDERED: Methohexita Syr 100mg/10ml IVP ONE (06:00)
[2020-06-20] MEDS ORDERED: Succinylcholine 20mg/ml 10ml vial ONE (06:00)
[2020-06-20] MEDS ORDERED: NS 500ML ONE (06:00)
[2020-06-20] MEDS ORDERED: Atropine Sulfate 0.4mg/ml inj IVP PRN (08:49)
[2020-06-27] VITALS (7 sets, daily range): BP systolic 129–150; BP diastolic 64–103
[2020-06-27] MEDS ORDERED: Flumazenil 0.5mg/5ml Inj IV ONE (06:00)
[2020-06-27] MEDS ORDERED: Succinylcholine 20mg/ml 10ml vial ONE (06:00)
[2020-06-27] MEDS ORDERED: Glycopyrrolate 0.2mg/ml 1ml Vial ONE (06:00)
[2020-06-27] MEDS ORDERED: NS 500ML ONE (06:00)
[2020-06-27] MEDS ORDERED: Methohexita Syr 100mg/10ml IVP ONE (06:00)
[2020-07-04] VITALS (7 sets, daily range): BP systolic 125–145; BP diastolic 49–93
[2020-07-04] MEDS ORDERED: Glycopyrrolate 0.2mg/ml 1ml Vial ONE (06:00)
[2020-07-04] MEDS ORDERED: NS 500ML ONE (06:00)
[2020-07-04] MEDS ORDERED: Methohexita Syr 100mg/10ml IVP ONE (06:00)
[2020-07-04] MEDS ORDERED: Succinylcholine 20mg/ml 10ml vial ONE (06:00)
[2020-07-04] MEDS ORDERED: Flumazenil 0.5mg/5ml Inj IV ONE (06:00)
[2020-07-04] MEDS ORDERED: Atropine Sulfate 0.4mg/ml inj IVP PRN (08:39)
== END 2020-07-09 | disposition home or self-care (01) ==
LOC: ECT 05:33
DX: F06.1 Catatonic disorder due to known physiological condition (principal); F84.0 Autistic disorder
CPT/HCPCS: 90870; J0330; J7040

== ENCOUNTER 2020-07-11 05:21 | Outpatient (RCR) | payer BC ==
[2020-07-11] VITALS (7 sets, daily range): BP systolic 125–153; BP diastolic 58–99
[~2020-07-11] VITALS: Ht 170.2 cm; Wt 67.6 kg
[2020-07-11] MEDS ORDERED: Succinylcholine 20mg/ml 10ml vial ONE (05:22)
[2020-07-11] MEDS ORDERED: Methohexita Syr 100mg/10ml IVP ONE (05:22)
[2020-07-11] MEDS ORDERED: NS 500ML ONE (05:22)
[2020-07-11] MEDS ORDERED: Flumazenil 0.5mg/5ml Inj IV ONE (05:22)
[2020-07-11] MEDS ORDERED: Glycopyrrolate 0.2mg/ml 1ml Vial ONE (05:22)
[2020-07-18] VITALS (7 sets, daily range): BP systolic 133–162; BP diastolic 17–104
[2020-07-18] MEDS ORDERED: Succinylcholine 20mg/ml 10ml vial ONE (09:00)
[2020-07-18] MEDS ORDERED: Glycopyrrolate 0.2mg/ml 1ml Vial ONE (09:00)
[2020-07-18] MEDS ORDERED: Methohexita Syr 100mg/10ml IVP ONE (09:00)
[2020-07-18] MEDS ORDERED: Flumazenil 0.5mg/5ml Inj IV ONE (09:00)
[2020-07-25] VITALS (7 sets, daily range): BP systolic 137–158; BP diastolic 53–109
[2020-07-25] MEDS ORDERED: Succinylcholine 20mg/ml 10ml vial ONE (06:00)
[2020-07-25] MEDS ORDERED: Glycopyrrolate 0.2mg/ml 1ml Vial ONE (06:00)
[2020-07-25] MEDS ORDERED: Flumazenil 0.5mg/5ml Inj IV ONE (06:00)
[2020-07-25] MEDS ORDERED: Methohexita Syr 100mg/10ml IVP ONE (06:00)
[2020-08-01] VITALS (7 sets, daily range): BP systolic 141–151; BP diastolic 58–83
[2020-08-01] MEDS ORDERED: Flumazenil 0.5mg/5ml Inj IV ONE (09:00)
[2020-08-01] MEDS ORDERED: Succinylcholine 20mg/ml 10ml vial ONE (09:00)
[2020-08-01] MEDS ORDERED: Methohexita Syr 100mg/10ml IVP ONE (09:00)
[2020-08-01] MEDS ORDERED: Glycopyrrolate 0.2mg/ml 1ml Vial ONE (09:00)
[2020-08-08] VITALS (7 sets, daily range): BP systolic 137–173; BP diastolic 52–109
[2020-08-08] MEDS ORDERED: Succinylcholine 20mg/ml 10ml vial ONE (09:00)
[2020-08-08] MEDS ORDERED: Flumazenil 0.5mg/5ml Inj IV ONE (09:00)
[2020-08-08] MEDS ORDERED: Methohexita Syr 100mg/10ml IVP ONE (09:00)
[2020-08-08] MEDS ORDERED: NS 500ML ONE (09:00)
[2020-08-08] MEDS ORDERED: Glycopyrrolate 0.2mg/ml 1ml Vial ONE (09:00)
== END 2020-08-09 | disposition home or self-care (01) ==
LOC: ECT 05:21
DX: F06.1 Catatonic disorder due to known physiological condition (principal); F84.0 Autistic disorder
CPT/HCPCS: 90870; J0330; J7030; J7040

== ENCOUNTER 2020-08-15 05:06 | Outpatient (RCR) | payer BC ==
[2020-08-15] VITALS (7 sets, daily range): BP systolic 131–159; BP diastolic 61–109
[~2020-08-15] VITALS: Ht 170.2 cm; Wt 67.6 kg
[2020-08-15] MEDS ORDERED: Flumazenil 0.5mg/5ml Inj IV ONE (05:07)
[2020-08-15] MEDS ORDERED: Succinylcholine 20mg/ml 10ml vial ONE (05:07)
[2020-08-15] MEDS ORDERED: Glycopyrrolate 0.2mg/ml 1ml Vial ONE (05:07)
[2020-08-15] MEDS ORDERED: Methohexita Syr 100mg/10ml IVP ONE (05:07)
[2020-08-22] VITALS (7 sets, daily range): BP systolic 130–162; BP diastolic 54–97
[2020-08-22] MEDS ORDERED: Succinylcholine 20mg/ml 10ml vial ONE (06:00)
[2020-08-22] MEDS ORDERED: Glycopyrrolate 0.2mg/ml 1ml Vial ONE (06:00)
[2020-08-22] MEDS ORDERED: Methohexita Syr 100mg/10ml IVP ONE (06:00)
[2020-08-22] MEDS ORDERED: NS 500ML ONE (06:00)
[2020-08-22] MEDS ORDERED: Flumazenil 0.5mg/5ml Inj IV ONE (06:00)
[2020-08-29] VITALS (7 sets, daily range): BP systolic 135–179; BP diastolic 46–91
[2020-08-29] MEDS ORDERED: Flumazenil 0.5mg/5ml Inj IV ONE (06:00)
[2020-08-29] MEDS ORDERED: Succinylcholine 20mg/ml 10ml vial ONE (06:00)
[2020-08-29] MEDS ORDERED: NS 500ML ONE (06:00)
[2020-08-29] MEDS ORDERED: Glycopyrrolate 0.2mg/ml 1ml Vial ONE (06:00)
[2020-08-29] MEDS ORDERED: Methohexita Syr 100mg/10ml IVP ONE (06:00)
[2020-09-05] VITALS (7 sets, daily range): BP systolic 124–161; BP diastolic 61–97
[2020-09-05] MEDS ORDERED: Flumazenil 0.5mg/5ml Inj IV ONE (06:00)
[2020-09-05] MEDS ORDERED: Glycopyrrolate 0.2mg/ml 1ml Vial ONE (06:00)
[2020-09-05] MEDS ORDERED: Methohexita Syr 100mg/10ml IVP ONE (06:00)
[2020-09-05] MEDS ORDERED: Succinylcholine 20mg/ml 10ml vial ONE (06:00)
[2020-09-05] MEDS ORDERED: Lidocaine 2% 100mg/5ml Carp IV PRN (09:17)
[2020-09-05] MEDS ORDERED: Atropine Sulfate 0.4mg/ml inj IVP PRN (09:17)
== END 2020-09-09 | disposition home or self-care (01) ==
LOC: ECT 05:06
DX: F06.1 Catatonic disorder due to known physiological condition (principal); F84.0 Autistic disorder
CPT/HCPCS: 90870; J0330; J7030; J7040

== ENCOUNTER 2020-09-12 05:27 | Outpatient (RCR) | payer BC ==
[~2020-09-12] VITALS: Ht 170.2 cm; Wt 67.6 kg
[2020-09-12] VITALS (7 sets, daily range): BP systolic 120–179; BP diastolic 62–95
[2020-09-12] MEDS ORDERED: Methohexita Syr 100mg/10ml IVP ONE ×2 (05:28)
[2020-09-12] MEDS ORDERED: Succinylcholine 20mg/ml 10ml vial ONE ×2 (05:28)
[2020-09-12] MEDS ORDERED: Flumazenil 0.5mg/5ml Inj IV ONE ×2 (05:28)
[2020-09-12] MEDS ORDERED: NS 500ML ONE (05:28)
[2020-09-12] MEDS ORDERED: Glycopyrrolate 0.2mg/ml 1ml Vial ONE ×2 (05:28)
[2020-09-19] VITALS (7 sets, daily range): BP systolic 136–158; BP diastolic 76–97
[2020-09-26] VITALS (7 sets, daily range): BP systolic 127–173; BP diastolic 57–94
[2020-09-26] MEDS ORDERED: Flumazenil 0.5mg/5ml Inj IV ONE (06:00)
[2020-09-26] MEDS ORDERED: Succinylcholine 20mg/ml 10ml vial ONE (06:00)
[2020-09-26] MEDS ORDERED: Glycopyrrolate 0.2mg/ml 1ml Vial ONE (06:00)
[2020-09-26] MEDS ORDERED: Methohexita Syr 100mg/10ml IVP ONE (06:00)
[2020-10-03] VITALS (7 sets, daily range): BP systolic 138–161; BP diastolic 72–84
[2020-10-03] MEDS ORDERED: Succinylcholine 20mg/ml 10ml vial ONE (06:00)
[2020-10-03] MEDS ORDERED: NS 500ML ONE (06:00)
[2020-10-03] MEDS ORDERED: Flumazenil 0.5mg/5ml Inj IV ONE (06:00)
[2020-10-03] MEDS ORDERED: Glycopyrrolate 0.2mg/ml 1ml Vial ONE (06:00)
[2020-10-03] MEDS ORDERED: Methohexita Syr 100mg/10ml IVP ONE (06:00)
== END 2020-10-07 | disposition home or self-care (01) ==
LOC: ECT 05:27
DX: F06.1 Catatonic disorder due to known physiological condition (principal); F84.0 Autistic disorder
CPT/HCPCS: 90870; J0330; J7030; J7040